=== PATIENT | female | born 1995 | race Caucasian/White ===

== ENCOUNTER 2017-10-04 11:25 | Observation (INO) | payer OTHER ==
[2017-10-04 11:52] VITALS: BP 128/74; PULSE 65
== END 2017-10-04 12:00 | disposition home or self-care (01) ==
LOC: OB 11:25
PROVIDERS: ADMIT Family Medicine; ATTEND Family Medicine
DX: Z34.83 Encounter for supervision of other normal pregnancy, third trimester (principal)
CPT/HCPCS: 36415; 81003; 85025; G0378; 59025

== ENCOUNTER 2017-10-09 21:19 | Observation (INO) | payer OTHER ==
[2017-10-09 22:14] VITALS: BP 133/77; PULSE 78
[2017-10-09 22:50] LABS: BASOPHIL % 0.1 % (0.0-0.4); Basophil (Absolute #) 0.01 (0-0.4); Eosinophil % 1.1 % (0.00-5.0); Eosinophil (Absolute #) 0.12 (0-0.5); Granulocytes % 79.1 % (36.0-66.0); Hematocrit 28.1 % (35-47); Hemoglobin 9.6 gm/dl (12.0-16.0); Lymphocyte (Absolute #) 1.16 (1.0-4.6); Lymphocytes % 10.5 % (24.0-44.0); Mean Cell Volume 90.4 fl (78-100); Mean Corpuscular Hgb Concent. 34.2 g/dl (32-36); Mean Platelet Volume 12.1 fl (6-9.5); Monocyte (Absolute #) 1.01 (0.0-1.3); Monocytes % 9.2 % (0.0-12.0); Platelet Count 95 K/mm3 (150-450); Red Blood Count 3.11 M/mm3 (4.1-5.4); Red Cell Distribution Width 13.5 % (11.5-14.0)
[2017-10-09 23:05] LABS: Appearance CLEAR (CLEAR); Bacteria RARE /HPF (NEGATIVE); Bilirubin NEGATIVE (NEGATIVE); Blood NEGATIVE Ery/ul (0-5); Epithelial Cells FEW /HPF (FEW); Glucose NEGATIVE (NEGATIVE); Ketones NEGATIVE (NEGATIVE); Leukocyte Esterase 1+ (NEGATIVE); Mucus SLIGHT /HPF (NEGATIVE); Nitrite NEGATIVE (NEGATIVE); Protein,Urine Dip TRACE (Negative); Specific Gravity 1.015 (1.005-1.025); Urobilinogen NORMAL mg/dL (0-1)
[2017-10-09 23:07] LABS: Mean Corpuscular Hemoglobin 30.8 pg (26-32)
[2017-10-09 23:08] LABS: INR 0.95 (0.8-3.0)
[2017-10-09 23:11] LABS: PTT 26.5 SECONDS (25.3-37.0)
[2017-10-09 23:12] LABS: Amphetamine,Urine NEGATIVE (NEGATIVE); Barbiturate,Urine NEGATIVE (NEGATIVE); Benzodiazepine,Urine NEGATIVE (NEGATIVE); Cocaine,Urine NEGATIVE (NEGATIVE); Methadone,Urine NEGATIVE (NEGATIVE); Opiate,Urine NEGATIVE (NEGATIVE); PCP,Urine NEGATIVE (NEGATIVE); THC,Urine POSITIVE (NEGATIVE)
[2017-10-09 23:18] LABS: ALBUMIN 3.4 g/dL (3.5-5.0); ALKALINE PHOSPHATASE 168 U/L (38-126); ANION GAP 11.4 MEQ/L (5-15); BLOOD UREA NITROGEN 9 mg/dL (7-17); CHLORIDE 108 mmol/L (98-107); Calcium 8.5 mg/dL (8.4-10.2); Carbon Dioxide 22 mmol/L (22-30); Creatinine 1 0.63 mg/dL (0.52-1.04); Glucose 79 mg/dL (74-106); Potassium 3.6 mmol/L (3.5-5.1); SGOT/AST 15 U/L (14-36); SGPT/ALT 12 U/L (0-35); SODIUM 138 mmol/L (137-145); Total Protein 6.7 g/dL (6.3-8.2)
[2017-10-09 23:59] LABS: Slide Review 1 YES
== END 2017-10-10 00:10 | disposition home or self-care (01) ==
LOC: OB 21:19 → UNDOADMOB 21:19 → UNDODISOB 10-10 00:10
PROVIDERS: ADMIT Family Medicine; ATTEND Family Medicine
DX: Z34.82 Encounter for supervision of other normal pregnancy, second trimester (principal)
CPT/HCPCS: 36415; 80053; 80307; 81000; 84550; 85025; 85610; 85730; G0378

== ENCOUNTER 2017-10-22 06:54 | Inpatient (IN) | payer OTHER ==
[2017-10-22] MEDS ORDERED: Ephedrine Sulfate 50 MG/ML IV PRN (08:56)
[2017-10-22] MEDS ORDERED: OB EPIDURAL NAROPIN/SUFENTANIL IN NACL EPIDURAL PRN (08:56)
[2017-10-22] MEDS ORDERED: Lactated Ringers 1,000 ML IV ONE (08:56)
[2017-10-22] MEDS ORDERED: Phenergan 25 MG INJ IV PRN (08:56)
[2017-10-22] MEDS ORDERED: Zofran 4 MG/2 ML VIAL IV PRN (08:56)
[2017-10-22] MEDS ORDERED: PITOCIN 30 UNITS/ LR 500 ML 500 ML IV SCH (09:00)
[2017-10-22 09:53] LABS: BASOPHIL % 0.2 % (0.0-0.4); Basophil (Absolute #) 0.01 (0-0.4); Eosinophil % 0.8 % (0.00-5.0); Eosinophil (Absolute #) 0.05 (0-0.5); Granulocyte Absolute (ANC) 4.21 (1.4-6.9); Granulocytes % 70.6 % (36.0-66.0); Hemoglobin 10.3 gm/dl (12.0-16.0); Lymphocyte (Absolute #) 1.22 (1.0-4.6); Lymphocytes % 20.4 % (24.0-44.0); Mean Cell Volume 88.5 fl (78-100); Mean Corpuscular Hgb Concent. 34.3 g/dl (32-36); Mean Platelet Volume 11.9 fl (6-9.5); Monocyte (Absolute #) 0.48 (0.0-1.3); Platelet Count 119 K/mm3 (150-450); Red Blood Count 3.39 M/mm3 (4.1-5.4); Red Cell Distribution Width 13.1 % (11.5-14.0)
[2017-10-22 10:03] LABS: Mean Corpuscular Hemoglobin 30.3 pg (26-32)
[2017-10-22] MEDS: CLINDAMYCIN-D5W 900 MG/50 ML*** 900 MG/50 ML BAG IV SCH ×2 (10:23→18:22)
[2017-10-22 11:59] LABS: Amphetamine,Urine NEGATIVE (NEGATIVE); Barbiturate,Urine NEGATIVE (NEGATIVE); Benzodiazepine,Urine NEGATIVE (NEGATIVE); Cocaine,Urine NEGATIVE (NEGATIVE); Methadone,Urine NEGATIVE (NEGATIVE); Opiate,Urine NEGATIVE (NEGATIVE); PCP,Urine NEGATIVE (NEGATIVE); THC,Urine POSITIVE (NEGATIVE)
[2017-10-22] MEDS ORDERED: Lactated Ringers 1,000 ML IV SCH (13:30)
[2017-10-22] MEDS ORDERED: CLINDAMYCIN-D5W 900 MG/50 ML*** 900 MG/50 ML BAG IV SCH (14:00)
[2017-10-22] MEDS: MOTRIN 400 MG PO PRN (20:53)
[2017-10-22] MEDS ORDERED: Dulcolax 10 MG SUPP PR PRN (23:32)
[2017-10-22] MEDS ORDERED: NORCO 5/325 MG PO PRN (23:32)
[2017-10-22] MEDS ORDERED: Anucort-HC SUPPOSITORY PR PRN (23:32)
[2017-10-22] MEDS ORDERED: Dermoplast Spray TP PRN (23:32)
[2017-10-22] MEDS ORDERED: LANSINOH 40 GM TOP PRN (23:32)
[2017-10-22] MEDS ORDERED: Ambien 10 MG PO PRN (23:32)
[2017-10-22] MEDS ORDERED: TUCKS TP PRN (23:32)
[2017-10-22] MEDS ORDERED: CORTISONE 1% CREAM TP PRN (23:32)
[2017-10-22] MEDS ORDERED: Mylicon 80MG PO PRN (23:32)
[2017-10-23] MEDS ORDERED: TYLENOL EXTRA STRENGTH 500 MG ONE (01:16)
[2017-10-23] MEDS: TYLENOL EXTRA STRENGTH 500 MG PO PRN ×3 (01:18→18:37)
[2017-10-23 05:39] LABS: BASOPHIL % 0.2 % (0.0-0.4); Basophil (Absolute #) 0.02 (0-0.4); Eosinophil % 1.1 % (0.00-5.0); Eosinophil (Absolute #) 0.09 (0-0.5); Granulocyte Absolute (ANC) 5.78 (1.4-6.9); Hematocrit 25.5 % (35-47); Hemoglobin 8.7 gm/dl (12.0-16.0); Lymphocyte (Absolute #) 1.58 (1.0-4.6); Lymphocytes % 19.4 % (24.0-44.0); Mean Cell Volume 89.5 fl (78-100); Mean Corpuscular Hemoglobin 30.5 pg (26-32); Mean Corpuscular Hgb Concent. 34.1 g/dl (32-36); Mean Platelet Volume 11.3 fl (6-9.5); Monocyte (Absolute #) 0.68 (0.0-1.3); Monocytes % 8.3 % (0.0-12.0); Platelet Count 131 K/mm3 (150-450); Red Blood Count 2.85 M/mm3 (4.1-5.4); Red Cell Distribution Width 13.1 % (11.5-14.0); White Blood Count 8.2 K/mm3 (4.0-10.5)
[2017-10-23] MEDS ORDERED: Adacel Vial IM ONE (08:00)
[2017-10-23 08:47] VITALS: O2SAT 98
[2017-10-23 09:11] LABS: ALBUMIN 2.8 g/dL (3.5-5.0); ALKALINE PHOSPHATASE 139 U/L (38-126); ANION GAP 11.1 MEQ/L (5-15); BLOOD UREA NITROGEN 4 mg/dL (7-17); CHLORIDE 107 mmol/L (98-107); Calcium 8.3 mg/dL (8.4-10.2); Carbon Dioxide 24 mmol/L (22-30); Creatinine 1 0.67 mg/dL (0.52-1.04); Glucose 75 mg/dL (74-106); Potassium 3.5 mmol/L (3.5-5.1); SGOT/AST 21 U/L (14-36); SGPT/ALT 15 U/L (0-35); SODIUM 139 mmol/L (137-145); Total Protein 5.8 g/dL (6.3-8.2); Uric Acid 5.6 mg/dL (2.6-6.0)
[2017-10-23] MEDS: MOTRIN 400 MG PO PRN ×3 (09:28→22:30)
[2017-10-23] MEDS: Colace 100 MG PO SCH ×2 (12:41→22:33)
[2017-10-23] MEDS: FERREX 150 PO SCH (12:41)
[2017-10-24] MEDS: MOTRIN 400 MG PO PRN ×2 (04:47→11:07)
--- NOTE | 2017-10-24 09:05 | PCM.DS ---
Discharge Summary Date of Admission: 10/22/17 16:13 Admitting Physician: JER GRAY Consults: Consults on Case 10/22/17 23:33 Notify Physician ROUTINE Primary Care Provider: JER GRAY Allergies Allergies orange Allergy (Verified 10/22/17 07:28) Penicillins Allergy (Verified 10/04/17 11:48) Hospital Summary - Hospital Course Hospital Course: Pt was admitted in active labor at 38+ weeks. She delivered vaginally (for full details, see delivery note). She has done well ; she was reported to have one isolated elevated BP to 163/80 yesterday morning - it was an automatic bp that was not verified with a manual BP. She has been asymptomatic (denies MITCHELL or visual changes). Having some cramping. Bleeding decreased. Will send her home on ibuprofen prn and iron once daily. She will need to check her BP twice daily and report high pressures (see pt instructions) . She will need labs in 2 days. Follow up with me in 1 week. - Vitals & Intake/Output Vital Signs: Vital Signs Temperature 98.3 F 10/24/17 02:00 Pulse Rate 48 L 10/24/17 02:00 Respiratory Rate 18 10/24/17 02:00 Blood Pressure 142/84 10/24/17 02:00 O2 Sat by Pulse Oximetry 98 10/24/17 00:00 Intake & Output: Intake & Output 10/21/17 10/22/17 10/23/17 10/24/17 11:59 11:59 11:59 11:59 Intake Total 2000 Output Total 1200 Balance 800 Weight 153 kg - Lab Result Diagrams: 10/23/17 05:18 10/23/17 05:00 Lab Results-Last 24 Hrs: Lab Results-Last 24 Hours 10/23/17 Range/Units 05:00 Sodium 139 (137-145) mmol/L Potassium 3.5 (3.5-5.1) mmol/L Chloride 107 (98-107) mmol/L Carbon Dioxide 24 (22-30) mmol/L Anion Gap 11.1 (5-15) MEQ/L BUN 4 L (7-17) mg/dL Creatinine 0.67 (0.52-1.04) mg/dL Estimated GFR > 60.0 ML/MIN Glucose 75 (74-106) mg/dL Uric Acid 5.6 (2.6-6.0) mg/dL Calcium 8.3 L (8.4-10.2) mg/dL Total Bilirubin 0.20 (0.2-1.3) mg/dL AST 21 (14-36) U/L ALT 15 (0-35) U/L Alkaline Phosphatase 139 H (38-126) U/L Serum Total Protein 5.8 L (6.3-8.2) g/dL Albumin 2.8 L (3.5-5.0) g/dL - Procedures and Test Procedures and Tests throughout Hospitalization: Therapy Orders & Screens 10/22/17 20:01 Standby STAT Comment: Diagnosis: ob check Discharge Exam General Appearance: no apparent distress, alert Neurologic Exam: oriented x 3, cooperative, other (pat refl 2+ bilat. no clonus. ) Skin Exam: normal color, warm, dry, No rash Respiratory Exam: normal breath sounds, lungs clear, No crackles/rales, No rhonchi, No wheezing Cardiovascular Exam: regular rate/rhythm, normal heart sounds Gastrointestinal/Abdomen Exam: soft, other (fundus firm under umbilicus) Extremity Exam: No pedal edema, No swelling Final Diagnosis/Problem List - Final Discharge Diagnosis/Problem (1) Vaginal delivery Current Visit: Yes Status: Acute Assessment & Plan: Doing great. Home today. (2) induced hypertension Current Visit: Yes Status: Acute Assessment & Plan: She had one isolated elevated BP. Check BP after discharge. RTC 1 wk. Get labs in 2d. (3) Thrombocytopenia Current Visit: Yes Status: Acute Assessment & Plan: Had improved. Recheck in 2d. - Discharge Disposition: Home, Self-Care Condition: Good Prescriptions: New Ferrous Gluconate 324 mg PO DAILY #30 tablet Ibuprofen 800 mg PO TID PRN #35 tablet PRN Reason: Pain Continue Hydroxyzine HCl 25 mg [Atarax 25 mg] 25 mg PO TIDPRN PRN PRN Reason: Anxiety Vits W-Ca,Fe,FA(<1Mg) [] 1 each PO DAILY Additional Instructions: Check your blood pressure twice daily. If the top number is over 160 or the bottom number is over 110, call the doctor IVETT. Also, call the doctor IVETT for severe headache, sudden swelling, or changes in vision. Get blood drawn in 2 d (Sunday). Come see Dr. Gray in 1 week. Follow up with: JER GRAY [Primary Care Provider] - 1 Week
[2017-10-24] MEDS ORDERED: THERAGRAN MULTIVITAMIN PO SCH (10:00)
[2017-10-24] MEDS: Colace 100 MG PO SCH (11:08)
[2017-10-24] MEDS: FERREX 150 PO SCH (11:08)
[2017-10-24 12:34] VITALS: BP 132/82; PULSE 52
== END 2017-10-24 12:20 | disposition home or self-care (01) | DRG 775 ==
LOC: OB 06:54 → UNDOADMOB 06:54 → INTOOBSV 16:13 → OBSVTOIN 16:13 → OB 16:13 → MED SURG 10-23 20:15 → OB 10-23 20:15
PROVIDERS: ADMIT Family Medicine; ATTEND Family Medicine
PROC: 10E0XZZ Delivery of Products of Conception, External Approach (ICD-10-PCS; principal; 2017-10-22)
DX: O80 Encounter for full-term uncomplicated delivery (principal); Z3A.38 38 weeks gestation of pregnancy; Z37.0 Single live birth; D64.9 Anemia, unspecified; D69.6 Thrombocytopenia, unspecified; N89.8 Other specified noninflammatory disorders of vagina
CPT/HCPCS: 36415; 80053; 80307; 84550; 85025; 90715; 94799; G0378; J2590; J2795; A9270-GY

== ENCOUNTER 2020-06-02 18:57 | Emergency (ER) | payer OTHER ==
[2020-06-02] MEDS ORDERED: Sodium Chloride 0.9% 1000 ML 1,000 ML IV STA (19:34)
[2020-06-02] MEDS ORDERED: TYLENOL 325 MG PO ONE (19:34)
[2020-06-02] MEDS ORDERED: Sodium Chloride 0.9% 1000 ML 1,000 ML ONE (19:56)
[2020-06-02] MEDS ORDERED: TYLENOL 325 MG ONE (19:56)
[2020-06-02 20:03] LABS: Absolute Neutrophil Ct (ANC) 5.22 (1.4-6.9); BASOPHIL % 0.3 % (0.0-0.4); Basophil (Absolute #) 0.02 (0-0.4); Eosinophil % 2.3 % (0.00-5.0); Eosinophil (Absolute #) 0.18 (0-0.5); Hematocrit 36.2 % (35-47); Hemoglobin 12.9 gm/dl (12.0-16.0); Lymphocyte (Absolute #) 1.89 (1.0-4.6); Lymphocytes % 23.7 % (24.0-44.0); Mean Cell Volume 88.1 fl (78-100); Mean Corpuscular Hemoglobin 31.4 pg (26-32); Mean Corpuscular Hgb Concent. 35.6 g/dl (32-36); Mean Platelet Volume 11.6 fl (7.5-11.0); Monocyte (Absolute #) 0.65 (0.0-1.3); Monocytes % 8.2 % (0.0-12.0); Neutrophil % 65.5 % (36.0-66.0); Platelet Count 155 K/mm3 (150-450); Red Blood Count 4.11 M/mm3 (4.1-5.4); Red Cell Distribution Width 11.7 % (11.5-14.0)
[2020-06-02 20:08] LABS: Appearance CLOUDY (CLEAR); Bilirubin NEGATIVE (NEGATIVE); Blood NEGATIVE Ery/ul (0-5); Epithelial Cells RARE /HPF (FEW); Glucose NEGATIVE (NEGATIVE); Ketones TRACE (NEGATIVE); Leukocyte Esterase LARGE (NEGATIVE); Mucus SLIGHT /HPF (NEGATIVE); Nitrite NEGATIVE (NEGATIVE); Protein,Urine Dip 30 (Negative); Urobilinogen 2 mg/dL (0-1)
[2020-06-02 20:14] LABS: ALBUMIN 4.6 g/dL (3.5-5.0); ALKALINE PHOSPHATASE 68 U/L (38-126); ANION GAP 13.2 MEQ/L (5-15); BLOOD UREA NITROGEN 10 mg/dL (7-17); CHLORIDE 102 mmol/L (98-107); Calcium 9.6 mg/dL (8.4-10.2); Carbon Dioxide 23 mmol/L (22-30); Creatinine 1 0.55 mg/dL (0.52-1.04); EST GLOMERULAR FILTRATION RATE > 60.0 ML/MIN; Glucose 92 mg/dL (74-106); Potassium 3.7 mmol/L (3.5-5.1); SGOT/AST 23 U/L (14-36); SGPT/ALT 18 U/L (0-35); SODIUM 134 mmol/L (137-145); Total Protein 7.8 g/dL (6.3-8.2)
[2020-06-02 21:00] LABS: ABO TYPING O; Antibody Screen NEGATIVE (NEGATIVE); RH TYPING POSITIVE
[2020-06-02 21:42] VITALS: O2SAT 99
--- NOTE | 2020-06-02 21:58 | ERPHSYRPT ---
- History of Present Illness Time Seen by Provider: 06/02/20 19:00 Source: patient Exam Limitations: no limitations Patient Subjective Stated Complaint: "I started having cramps earlier today." Triage Nursing Assessment: Patient reported onset of left lower abdomen/pelvis pain today while at home. Denied any heavy lifting/trauma. Pain described as intermittent cramping. Denied vaginal bleeding/discharge. Denied dysuria/hematuria. Denied nausea/vomiting/diarrhea. Pupils 3mm brisk reaction bilateral. Symmetrical chest expansion. heart tones S1/S2 regular rate and rhythm. Lungs vesicular with adequate airflow. Abdomen soft non-distended with normoactive bowel sounds. tenderness noted over the left lower pelvis. CVA tenderness to the left side. Peripheral pulse +2 bilateral. No noted dependent edema. Physician History: 24 years old 3 para 1 at almost 10 weeks gestation presented in the ER with sudden onset left lower quadrant/left pelvic cramping moderate intensity almost an hour prior to arrival, continuous and started to improve on presentation in the ER. Patient denies any associated vaginal bleeding or discharge. No urinary symptoms. Patient does have history of left ovarian cyst on recent ultrasound. Denies any trauma or fall. Timing/Duration: today, sudden, improved Activites at Onset: rest Quality: cramping Onset Location: LLQ, pelvic pain Pain Radiation: none Severity of Pain-Max: moderate Severity of Pain-Current: mild Prior abdominal problems: none Modifying Factors: Improves With: nothing Associated Symptoms: denies symptoms Allergies/Adverse Reactions: escitalopram [From Lexapro] Allergy (Verified 06/02/20 19:12) orange Allergy (Verified 10/22/17 07:28) Penicillins Allergy (Verified 10/04/17 11:48) Home Medications: Vits W-Ca,Fe,FA(<1Mg) [] 1 each PO DAILY 10/22/17 [History] Buprenorphine HCl/Naloxone HCl [Suboxone 2 mg-0.5 mg Tablet Sl] 0.5 tab PO DAILY 06/02/20 [History] Carvedilol 3.125 mg [Coreg 3.125 MG] 0.5 tab PO DAILY 06/02/20 [History] Metoclopramide HCl 1 tab PO Q6H PRN PRN 06/02/20 [History] Hx Tetanus, Diphtheria Vaccination/Date Given: Yes Hx Influenza Vaccination/Date Given: Yes Travel Risk - International Travel Have you traveled outside of the country in past 3 weeks: No - Coronavirus Screening Are you exhibiting any of the following symptoms?: No Close contact with a COVID-19 positive Pt in past 14-21 Days: No - Vaccine Status Have you recieved a Covid-19 vaccination: No - Review of Systems Constitutional: No Symptoms Eyes: No Symptoms Ears, Nose, & Throat: No Symptoms Respiratory: No Symptoms Cardiac: No Symptoms Abdominal/Gastrointestinal: Abdominal Pain Genitourinary Symptoms: Musculoskeletal: No Symptoms Skin: No Symptoms Neurological: No Symptoms Psychological: No Symptoms Endocrine: No Symptoms Hematologic/Lymphatic: No Symptoms Immunological/Allergic: No Symptoms - Past Medical History Pertinent Past Medical History: No Cardiac History: Hypertension Psycho-Social History: Anxiety - Past Surgical History Past Surgical History: No Neuro Surgical History: No Pertinent History Cardiac: No Pertinent History Gastrointestinal: No Pertinent History Musculoskeletal: No Pertinent History Female Surgical History: No Pertinent History - Social History Smoking Status: Former smoker Exposure to second hand smoke: No Drug Use: none Patient Lives Alone: No - Female History Hx Now: Yes - Nursing Vital Signs Nursing Vital Signs: Initial Vital Signs Respiratory Rate 16 06/02/20 18:58 Blood Pressure 150/81 06/02/20 18:58 O2 Sat by Pulse Oximetry 98 06/02/20 18:58 Pain Scale Pain Intensity 4 - Physical Exam General Appearance: no apparent distress, alert Eye Exam: PERRL/EOMI, eyes nml inspection Ears, Nose, Throat Exam: normal ENT inspection, TMs normal, pharynx normal Neck Exam: normal inspection, non-tender, supple, full range of motion Respiratory Exam: normal breath sounds, lungs clear Cardiovascular Exam: regular rate/rhythm, normal heart sounds Gastrointestinal/Abdomen Exam: soft, normal bowel sounds, tenderness (Minimal tenderness left pelvic) Pelvic Exam: not done Back Exam: normal inspection, normal range of motion Extremity Exam: normal inspection, normal range of motion Neurologic Exam: alert, oriented x 3, cooperative Skin Exam: normal color SpO2 Interpretation: normal SpO2: 99 O2 Delivery: Room Air Ordered Tests: Active Orders 24 hr Category Date Time Status IV Insertion STAT Care 06/02/20 19:34 Completed OB TRANSVAGINAL [US] Stat Exams 06/02/20 19:35 Taken CBC W DIFF Stat Lab 06/02/20 19:50 Completed CMP Stat Lab 06/02/20 19:50 Completed CULTURE,URINE Stat Lab 06/02/20 19:36 Received UA W/RFX UR CULTURE Stat Lab 06/02/20 19:36 Completed Medication Summary Discontinued Medications Generic Name Dose Route Start Last Admin Trade Name Julio PRN Reason Stop Dose Admin Acetaminophen 650 mg 06/02/20 19:34 06/02/20 19:59 Tylenol 325 Mg PO 06/02/20 19:35 650 mg STAT ONE Administration Acetaminophen Confirm 06/02/20 19:56 Tylenol 325 Mg Administered 06/02/20 19:57 Dose 650 mg .ROUTE .STK-MED ONE Sodium Chloride 1,000 mls @ 999 mls/hr 06/02/20 19:34 06/02/20 22:21 Sodium Chloride 0.9% 1000 Ml IV 06/02/20 20:34 Infused .Q1H1M STA Infusion Sodium Chloride Confirm 06/02/20 19:56 Sodium Chloride 0.9% 1000 Ml Administered 06/02/20 19:57 Dose 1,000 mls @ ud .ROUTE .STK-MED ONE Nitrofurantoin Macrocrystals 100 mg 06/02/20 21:59 06/02/20 22:25 Macrobid 100mg Capsule PO 06/02/20 22:00 100 mg STAT ONE Administration Nitrofurantoin Macrocrystals Confirm 06/02/20 22:23 Macrobid 100mg Capsule Administered 06/02/20 22:24 Dose 100 mg .ROUTE .STK-MED ONE Lab/Rad Data: Laboratory Result Diagrams 06/02/20 19:50 06/02/20 19:50 Laboratory Results 06/02/20 06/02/20 06/02/20 Range/Units 19:50 19:50 19:50 WBC 8.0 (4.0-10.5) K/mm3 RBC 4.11 (4.1-5.4) M/mm3 Hgb 12.9 (12.0-16.0) gm/dl Hct 36.2 (35-47) % MCV 88.1 (78-100) fl MCH 31.4 (26-32) pg MCHC 35.6 (32-36) g/dl RDW 11.7 (11.5-14.0) % Plt Count 155 (150-450) K/mm3 MPV 11.6 H (7.5-11.0) fl Gran % 65.5 (36.0-66.0) % Eos # (Auto) 0.18 (0-0.5) Absolute Lymphs (auto) 1.89 (1.0-4.6) Absolute Monos (auto) 0.65 (0.0-1.3) Lymphocytes % 23.7 L (24.0-44.0) % Monocytes % 8.2 (0.0-12.0) % Eosinophils % 2.3 (0.00-5.0) % Basophils % 0.3 (0.0-0.4) % Absolute Granulocytes 5.22 (1.4-6.9) Basophils # 0.02 (0-0.4) Sodium 134 L (137-145) mmol/L Potassium 3.7 (3.5-5.1) mmol/L Chloride 102 (98-107) mmol/L Carbon Dioxide 23 (22-30) mmol/L Anion Gap 13.2 (5-15) MEQ/L BUN 10 (7-17) mg/dL Creatinine 0.55 (0.52-1.04) mg/dL Estimated GFR > 60.0 ML/MIN Glucose 92 (74-106) mg/dL Calcium 9.6 (8.4-10.2) mg/dL Total Bilirubin 0.30 (0.2-1.3) mg/dL AST 23 (14-36) U/L ALT 18 (0-35) U/L Alkaline Phosphatase 68 (38-126) U/L Serum Total Protein 7.8 (6.3-8.2) g/dL Albumin 4.6 (3.5-5.0) g/dL Urine Color (YELLOW) Urine Appearance (CLEAR) Urine pH (5-6) Ur Specific [place] (1.005-1.025) Urine Protein (Negative) Urine Ketones (NEGATIVE) Urine Blood (0-5) Diego/ul Urine Nitrite (NEGATIVE) Urine Bilirubin (NEGATIVE) Urine Urobilinogen (0-1) mg/dL Ur Leukocyte Esterase (NEGATIVE) Urine WBC (Auto) (0-5) /HPF Urine RBC (Auto) (0-2) /HPF U Epithel Cells (Auto) (FEW) /HPF Urine Bacteria (Auto) (NEGATIVE) /HPF Urine Mucus (Auto) (NEGATIVE) /HPF Urine Culture Reflexed (NO) Urine Glucose (NEGATIVE) mg/dL ABO Group O Rh Factor POSITIVE Antibody Screen NEGATIVE (NEGATIVE) 06/02/20 Range/Units 19:36 WBC (4.0-10.5) K/mm3 RBC (4.1-5.4) M/mm3 Hgb (12.0-16.0) gm/dl Hct (35-47) % MCV (78-100) fl MCH (26-32) pg MCHC (32-36) g/dl RDW (11.5-14.0) % Plt Count (150-450) K/mm3 MPV (7.5-11.0) fl Gran % (36.0-66.0) % Eos # (Auto) (0-0.5) Absolute Lymphs (auto) (1.0-4.6) Absolute Monos (auto) (0.0-1.3) Lymphocytes % (24.0-44.0) % Monocytes % (0.0-12.0) % Eosinophils % (0.00-5.0) % Basophils % (0.0-0.4) % Absolute Granulocytes (1.4-6.9) Basophils # (0-0.4) Sodium (137-145) mmol/L Potassium (3.5-5.1) mmol/L Chloride (98-107) mmol/L Carbon Dioxide (22-30) mmol/L Anion Gap (5-15) MEQ/L BUN (7-17) mg/dL Creatinine (0.52-1.04) mg/dL Estimated GFR ML/MIN Glucose (74-106) mg/dL Calcium (8.4-10.2) mg/dL Total Bilirubin (0.2-1.3) mg/dL AST (14-36) U/L ALT (0-35) U/L Alkaline Phosphatase (38-126) U/L Serum Total Protein (6.3-8.2) g/dL Albumin (3.5-5.0) g/dL Urine Color YELLOW (YELLOW) Urine Appearance CLOUDY (CLEAR) Urine pH 5.0 (5-6) Ur Specific [place] 1.030 (1.005-1.025) Urine Protein 30 (Negative) Urine Ketones TRACE (NEGATIVE) Urine Blood NEGATIVE (0-5) Diego/ul Urine Nitrite NEGATIVE (NEGATIVE) Urine Bilirubin NEGATIVE (NEGATIVE) Urine Urobilinogen 2 (0-1) mg/dL Ur Leukocyte Esterase LARGE (NEGATIVE) Urine WBC (Auto) 6-10 (0-5) /HPF Urine RBC (Auto) NONE (0-2) /HPF U Epithel Cells (Auto) RARE (FEW) /HPF Urine Bacteria (Auto) NONE (NEGATIVE) /HPF Urine Mucus (Auto) SLIGHT (NEGATIVE) /HPF Urine Culture Reflexed YES (NO) Urine Glucose NEGATIVE (NEGATIVE) mg/dL ABO Group Rh Factor Antibody Screen (NEGATIVE) - Progress Progress: improved Air Movement: good Progress Note: 06/02/20 21:57 She is given fluid bolus and Tylenol, on reevaluation feeling better. Baseline labs are grossly unremarkable. Does have UTI, will give her Macrobid. I have obtained ultrasound with preliminary report which showed no more cyst which probably ruptured already. No ovarian torsion. Good heart tones in 150s and no acute OB issue. Recommended outpatient follow-up with primary OB. Recommended pelvic rest. Discussed signs symptoms of worsening needing return to ER which she seems understanding. Blood Culture(s) Obtained: No Antibiotics given: No Counseled pt/family regarding: lab results, diagnosis, need for follow-up, rad results - Departure Departure Disposition: Home Clinical Impression: Pelvic pain affecting Qualifiers: Trimester: first trimester Qualified Code(s): O26.891 - Other specified related conditions, first trimester UTI in Qualifiers: Trimester: first trimester Qualified Code(s): O23.41 - Unspecified infection of urinary tract in , first trimester Condition: Stable Critical Care Time: No Referrals: JER HUGHES [Primary Care Provider] - (1-2 days for reevaluation.) Instructions: Stomach Pain in Early , Urinary Tract Infections in Additional Instructions: Drink plenty of fluids. Take Tylenol as needed for pain. Follow-up with your primary OB for reevaluation in 1 to 2 days. Pelvic rest. Return to ER for worsening pain, vaginal bleeding discharge etc. Prescriptions: Nitrofurantoin Monohyd/M-Cryst [Macrobid 100 mg Capsule] 100 mg PO BID #14 caps ule
[2020-06-02] MEDS ORDERED: Macrobid 100MG Capsule PO ONE (21:59)
[2020-06-02 22:22] VITALS: BP 118/72; PULSE 74
[2020-06-02] MEDS ORDERED: Macrobid 100MG Capsule ONE (22:23)
--- NOTE | 2020-06-03 08:52 | XRAY ---
Indication: First trimester pain. Two-dimensional transvaginal early OB ultrasound performed. Comparison: May 18, 2020. Again there is a single intrauterine with mean crown-rump length 2.74 cm corresponding to 9 weeks 4 days. heart rate 157 bpm. No abnormal subchorionic fluid. Left ovary again demonstrates a 2.6 cm echogenic cystic mass. Right ovary not seen. No free fluid. Impression: Again single viable intrauterine measuring 9 weeks 4 days. Normal progression of . Grossly stable left ovary echogenic cystic mass possibly complex viscus hemorrhagic corpus luteal cyst. Comment: Preliminary report was given.
== END 2020-06-02 22:31 | disposition home or self-care (01) ==
LOC: ED 18:57
DX: O26.891 Other specified pregnancy related conditions, first trimester (principal); O23.41 Unspecified infection of urinary tract in pregnancy, first trimester; Z3A.10 10 weeks gestation of pregnancy
CPT/HCPCS: 36000; 36415; 76817; 80053; 81001; 85025; 86850; 86900; 86901; 87086; 96360; 99284; A9270-GY

== ENCOUNTER 2020-10-27 12:08 | Observation (INO) | payer OTHER ==
[2020-10-27] MEDS ORDERED: Rocephin 1000 MG INJ IM ONE (13:53)
[2020-10-27 13:54] VITALS: O2SAT 98
[2020-10-27] MEDS ORDERED: XYLOCAINE 1% HCL 20 ML MDV IJ ONE (13:56)
[2020-10-27 14:58] VITALS: BP 119/74; PULSE 62
--- NOTE | 2020-10-27 15:16 | XRAY ---
Indication: Evaluate cervical length. Limited transvaginal pelvic sonogram demonstrates closed cervix with cervical length measuring 3.2-3.4 cm.
== END 2020-10-27 14:35 | disposition home or self-care (01) ==
LOC: UNDOADMOB 12:08 → OB 12:08 → UNDODISOB 14:35
PROVIDERS: ADMIT Family Medicine; ATTEND Family Medicine
DX: Z34.83 Encounter for supervision of other normal pregnancy, third trimester (principal); Z3A.30 30 weeks gestation of pregnancy
CPT/HCPCS: 59025; 76815; 96372; G0378; J0696

== ENCOUNTER 2020-11-05 22:12 | Observation (INO) | payer OTHER ==
[2020-11-05 23:09] LABS: Amphetamine,Urine NEGATIVE (NEGATIVE); Barbiturate,Urine NEGATIVE (NEGATIVE); Benzodiazepine,Urine NEGATIVE (NEGATIVE); Cocaine,Urine NEGATIVE (NEGATIVE); Methadone,Urine NEGATIVE (NEGATIVE); Opiate,Urine NEGATIVE (NEGATIVE); PCP,Urine NEGATIVE (NEGATIVE); THC,Urine POSITIVE (NEGATIVE)
[2020-11-05 23:15] VITALS: O2SAT 98
[2020-11-05 23:17] LABS: Appearance SLIGHTLY CLOUDY (CLEAR); Bilirubin NEGATIVE (NEGATIVE); Blood NEGATIVE Ery/ul (0-5); Epithelial Cells RARE /HPF (FEW); Glucose NEGATIVE (NEGATIVE); Ketones NEGATIVE (NEGATIVE); Leukocyte Esterase TRACE (NEGATIVE); Mucus SLIGHT /HPF (NEGATIVE); Nitrite NEGATIVE (NEGATIVE); Protein,Urine Dip NEGATIVE (Negative); Specific Gravity 1.024 (1.005-1.025); Urobilinogen 4 mg/dL (0-1); WBC 0-2 /HPF (0-5)
[2020-11-06 01:15] VITALS: BP 126/75; PULSE 75
== END 2020-11-06 00:20 | disposition home or self-care (01) ==
LOC: OB 22:12
PROVIDERS: ADMIT Family Medicine; ATTEND Family Medicine
DX: Z34.83 Encounter for supervision of other normal pregnancy, third trimester (principal); Z3A.31 31 weeks gestation of pregnancy
CPT/HCPCS: 80307; 81001; G0378

== ENCOUNTER 2020-12-09 01:09 | Observation (INO) | payer OTHER ==
[2020-12-09 02:02] LABS: Amphetamine,Urine NEGATIVE (NEGATIVE); Barbiturate,Urine NEGATIVE (NEGATIVE); Benzodiazepine,Urine NEGATIVE (NEGATIVE); Cocaine,Urine NEGATIVE (NEGATIVE); Methadone,Urine NEGATIVE (NEGATIVE); Opiate,Urine NEGATIVE (NEGATIVE); PCP,Urine NEGATIVE (NEGATIVE); THC,Urine NEGATIVE (NEGATIVE)
[2020-12-09 03:08] LABS: Appearance CLEAR (CLEAR); Bilirubin NEGATIVE (NEGATIVE); Blood NEGATIVE Ery/ul (0-5); Glucose NEGATIVE (NEGATIVE); Ketones NEGATIVE (NEGATIVE); Leukocyte Esterase NEGATIVE (NEGATIVE); Nitrite NEGATIVE (NEGATIVE); Protein,Urine Dip NEGATIVE (Negative); Specific Gravity 1.015 (1.005-1.025); Urobilinogen 4 mg/dL (0-1)
[2020-12-09 04:13] VITALS: BP 124/58; PULSE 64; O2SAT 98
== END 2020-12-09 04:45 | disposition home or self-care (01) ==
LOC: OB 01:09
PROVIDERS: ADMIT Family Medicine; ATTEND Family Medicine
DX: Z34.83 Encounter for supervision of other normal pregnancy, third trimester (principal); Z3A.36 36 weeks gestation of pregnancy
CPT/HCPCS: 80307; 81001; G0378

== ENCOUNTER 2021-03-11 13:58 | Emergency (ER) | payer OTHER ==
--- NOTE | 2021-03-11 14:04 | ERPHSYRPT ---
- History of Present Illness Time Seen by Provider: 03/11/21 14:04 Source: patient Exam Limitations: no limitations Physician History: This is a 25-year-old female slipped and fell onto her buttock yesterday. The pain has persisted. It hurts to move. She is able to ambulate. She did not hit her head. She has no complaints of headache or neck pain. Occurred: yesterday Reason for Fall: slipped Injuries/Pain Location: pelvis (Posteriorly as well as the sacrum and coccyx) Loss of Consciousness: no loss of consciousness Quality: aching Severity of Pain-Max: mild (Moderate) Severity of Pain-Current: mild (Moderate) Modifying Factors: Improves With: movement Associated Symptoms (Fall): denies symptoms Allergies/Adverse Reactions: orange Allergy (Verified 12/09/20 01:43) Rash Penicillins Adverse Reaction (Severe, Verified 12/09/20 01:43) tachycardia escitalopram [From Lexapro] Adverse Reaction (Verified 12/09/20 01:43) does not remember had a rx as a child Home Medications: Buprenorphine HCl/Naloxone HCl [Buprenorphin-Naloxon 8-2 mg Sl] 1 each SL DAILY 03/11/21 [History] Lisinopril 20 mg [Zestril 20 MG] 20 mg PO DAILY 03/11/21 [History] hydroCHLOROthiazide [Hydrochlorothiazide] 12.5 mg PO DAILY 03/11/21 [History] Hx Tetanus, Diphtheria Vaccination/Date Given: Yes Hx Influenza Vaccination/Date Given: Yes Travel Risk - International Travel Have you traveled outside of the country in past 3 weeks: No - Coronavirus Screening Are you exhibiting any of the following symptoms?: No Close contact with a COVID-19 positive Pt in past 14-21 Days: No - Vaccine Status Have you recieved a Covid-19 vaccination: No - Review of Systems Constitutional: No Symptoms Eyes: No Symptoms Ears, Nose, & Throat: No Symptoms Respiratory: No Symptoms Cardiac: No Symptoms Abdominal/Gastrointestinal: No Symptoms Genitourinary Symptoms: No Symptoms Musculoskeletal: Fall, Injury (Posterior pelvis and sacrum and coccyx.) Skin: No Symptoms Neurological: No Symptoms Psychological: No Symptoms Endocrine: No Symptoms Hematologic/Lymphatic: No Symptoms Immunological/Allergic: No Symptoms All Other Systems: Reviewed and Negative - Past Medical History Pertinent Past Medical History: No Cardiac History: Hypertension Psycho-Social History: Anxiety - Past Surgical History Past Surgical History: No Neuro Surgical History: No Pertinent History Cardiac: No Pertinent History Gastrointestinal: No Pertinent History Musculoskeletal: No Pertinent History Female Surgical History: No Pertinent History - Social History Smoking Status: Former smoker Exposure to second hand smoke: Yes Drug Use: none Patient Lives Alone: No - Nursing Vital Signs Nursing Vital Signs: Initial Vital Signs Temperature 98.4 F 03/11/21 14:04 Pulse Rate 82 03/11/21 14:04 Blood Pressure 154/78 03/11/21 14:04 O2 Sat by Pulse Oximetry 99 03/11/21 14:04 Pain Scale Pain Intensity 7 - Valery Coma Score Best Eye Response ([place]): (4) open spontaneously Best Verbal Response ([place]): (5) oriented Best Motor Response ([place]): (6) obeys commands [place] Total: 15 - Physical Exam General Appearance: no apparent distress, alert, anxiety Head Injury: no evidence of injury Eye Exam: PERRL/EOMI, eyes nml inspection ENT Exam: airway nml Neck Exam: supple, trachea midline, full range of motion, normal alignment, normal inspection Respiratory/Chest Exam: No chest tenderness, No respiratory distress Gastrointestinal Exam: No tenderness Rectal Exam: not done Back Exam: normal inspection, normal range of motion, muscle spasm, No CVA tenderness, No vertebral tenderness Extremity Exam: normal inspection, normal range of motion, pelvis stable (Tenderness to the left of midline pelvis posteriorly) Neurologic Exam: alert, oriented x 3, cooperative, microbiology instructor II-XII nml as tested, normal mood/affect, nml cerebellar function, nml station & gait, sensation nml Skin Exam: normal color, warm, dry SpO2 Interpretation: normal O2 Delivery: Room Air - Course Nursing assessment & vital signs reviewed: Yes Ordered Tests: Active Orders 24 hr Category Date Time Status PELVIS (1 OR 2 VIEWS) Stat Exams 03/11/21 14:05 Ordered SACRUM AND COCCYX Stat Exams 03/11/21 Ordered HCG,QUALITATIVE URINE Stat Lab 03/11/21 14:30 Completed Lab/Rad Data: Laboratory Results 03/11/21 Range/Units 14:30 Urine HCG, Qual POSITIVE (Negative) - Progress Progress: unchanged Progress Note: 03/11/21 15:14 This patient's test came back positive. This surprised her. She has been walking since the fall. She is declining the x-rays at this time. I think this is reasonable. She was told to return to the emergency department if her symptoms worsen. I did explain to her that there is risk to the fetus with radiation from an x-ray and this risk is low. She has opted not to do the x- rays at this time. Counseled pt/family regarding: diagnosis, need for follow-up - Departure Departure Disposition: Home Clinical Impression: Fall with no injury, Condition: Stable Critical Care Time: No Referrals: JOCELYNE HARMON MD [Primary Care Provider] - Follow up/PCP as directed Additional Instructions: Ice pack to tender areas 3 times a day for approximately 5 to 10 minutes at a time over the next 48 hours. Return to the emergency department if your symptoms worsen. May use Tylenol 650 mg orally 4 times a day for pain control. If your pain persists beyond the next 2 to 3 days, follow-up with your primary care physician for further management Forms: Work/School Release Form
[2021-03-11 14:11] VITALS: BP 154/78; PULSE 82; O2SAT 99
== END 2021-03-11 15:24 | disposition home or self-care (01) ==
LOC: ED 13:58
DX: R10.2 Pelvic and perineal pain (principal); M53.3 Sacrococcygeal disorders, not elsewhere classified; W01.0XXA Fall on same level from slipping, tripping and stumbling without subsequent striking against object, initial encounter; Z33.1 Pregnant state, incidental; I10 Essential (primary) hypertension
CPT/HCPCS: 84703; 99283

== ENCOUNTER 2021-07-23 20:37 | Emergency (ER) | payer OTHER ==
[2021-07-23] MEDS ORDERED: Hydromorphone 1 mg/ml Injection IV ONE (20:52)
[2021-07-23] MEDS ORDERED: Hydromorphone 1 mg/ml Injection ONE (20:55)
[2021-07-23] MEDS ORDERED: Sodium Chloride 0.9% 1000 ML 1,000 ML ONE (20:56)
[2021-07-23] MEDS ORDERED: BENADRYL 50 MG/ML ONE (21:00)
[2021-07-23] MEDS ORDERED: Sodium Chloride 0.9% 1000 ML 1,000 ML IV SCH (21:00)
[2021-07-23] MEDS ORDERED: Reglan 10 MG/2 ML ONE (21:00)
[2021-07-23] MEDS ORDERED: BENADRYL 50 MG/ML IV ONE (21:00)
[2021-07-23] MEDS ORDERED: Reglan 10 MG/2 ML IV ONE (21:01)
[2021-07-23 21:11] LABS: Absolute Neutrophil Ct (ANC) 4.66 x10^3/uL (1.4-6.9); Basophil (Absolute #) 0.02 x10^3/uL (0-0.4); Eosinophil % 2.6 % (0.00-5.0); Eosinophil (Absolute #) 0.19 x10^3/uL (0-0.5); Hemoglobin 11.2 g/dL (12.0-16.0); Lymphocyte (Absolute #) 1.86 x10^3/uL (1.0-4.6); Lymphocytes % 25.5 % (24.0-44.0); Mean Cell Volume 91.2 fL (78-100); Mean Corpuscular Hemoglobin 31.9 pg (26-32); Mean Platelet Volume 11.9 fL (7.5-11.0); Monocyte (Absolute #) 0.56 x10^3/uL (0.0-1.3); Monocytes % 7.7 % (0.0-12.0); Neutrophil % 63.8 % (36.0-66.0); Platelet Count 156 x10^3/uL (150-450); Red Blood Count 3.51 x10^6/uL (4.1-5.4); Red Cell Distribution Width 12.7 % (11.5-14.0); White Blood Count 7.3 x10^3/uL (4.0-10.5)
--- NOTE | 2021-07-23 21:29 | ERPHSYRPT ---
- History of Present Illness Time Seen by Provider: 07/23/21 20:45 Historian: patient Exam Limitations: no limitations Patient Subjective Stated Complaint: To er c/o severe MITCHELL, left side chest pain and dizziness Triage Nursing Assessment: Pt arrives p/w/d resp easy a@ox3. 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 pt reports pain is tight and throbbing wrapping around to mid back left s blaine. PT reports dizziness present with movement. denies n/v or sob states chest pain worse with deep breathing. PT is 24 weeks Physician History: Patient is a 24-week gestation female who presents with a history of migraine headache for 3 days. She developed a headache several days ago she has now developed left-sided chest pain which wraps around to the back is worse with a deep breath. She is also been dizzy with standing. Cardiac risk factors include hypertension or gestational hypertension at least and family history. She denies any nausea vomiting diaphoresis or shortness of breath. Patient is presently on Suboxone on a decreasing dose. Timing/Duration: day(s) (3) Activities at Onset: activity (Headache started at work and has continued) Quality: aching, dullness, throbbing Location: other Chest Pain Radiation: back (Left chest radiates to the back) Severity of Pain-Max: mild Severity of Pain-Current: mild Modifying Factors: Improves With: nothing Associated Symptoms: denies symptoms Prior Chest Pain/Cardiac Workup: no prior chest pain Nitro Today/Relief: no nitro taken today Aspirin Treatment Today: no aspirin today Allergies/Adverse Reactions: orange Allergy (Verified 12/09/20 01:43) Rash Penicillins Adverse Reaction (Severe, Verified 12/09/20 01:43) tachycardia escitalopram [From Lexapro] Adverse Reaction (Verified 12/09/20 01:43) does not remember had a rx as a child nifedipine Adverse Reaction (Verified 07/23/21 20:54) Rapid Heart Beat sertraline [From Zoloft] Adverse Reaction (Verified 07/23/21 20:54) Nausea and Vomiting Home Medications: Aspirin [[place]] 81 mg PO DAILY 07/23/21 [History] Buprenorphine HCl/Naloxone HCl [Suboxone 2 mg-0.5 mg Sl Film] 1 each SL DAILY 07/23/21 [History] Hx Tetanus, Diphtheria Vaccination/Date Given: Yes Hx Influenza Vaccination/Date Given: Yes Travel Risk - International Travel Have you traveled outside of the country in past 3 weeks: No - Coronavirus Screening Are you exhibiting any of the following symptoms?: No Symptoms: Headaches/Body Aches/Fatigue Close contact with a COVID-19 positive Pt in past 14-21 Days: No - Vaccine Status Have you recieved a Covid-19 vaccination: Yes 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 - Vaccination Dates Date of 2cond Vaccination (if applicable): na - Review of Systems Constitutional: No Fever, No Chills Eyes: No Symptoms Ears, Nose, & Throat: No Symptoms Respiratory: No Cough, No Dyspnea Cardiac: No Chest Pain, No Edema, No Syncope Abdominal/Gastrointestinal: No Abdominal Pain, No Nausea, No Vomiting, No Diarrhea Genitourinary Symptoms: No Dysuria Musculoskeletal: No Back Pain, No Neck Pain Skin: No Rash Neurological: No Dizziness, No Focal Weakness, No Sensory Changes Psychological: No Symptoms Endocrine: No Symptoms All Other Systems: Reviewed and Negative - Past Medical History Pertinent Past Medical History: Yes Cardiac History: Hypertension Psycho-Social History: Anxiety Other Medical History: pre-eclampsia with last . HTN - Past Surgical History Past Surgical History: No Neuro Surgical History: No Pertinent History Cardiac: No Pertinent History Gastrointestinal: No Pertinent History Musculoskeletal: No Pertinent History Female Surgical History: No Pertinent History Other Surgical History: abscess to right breast - Social History Smoking Status: Former smoker Exposure to second hand smoke: Yes Drug Use: none Patient Lives Alone: No - Female History Hx Now: Yes Expected Date of Delivery: 11/10/21 - Nursing Vital Signs Nursing Vital Signs: Initial Vital Signs Temperature 97.9 F 07/23/21 20:42 Pulse Rate 62 07/23/21 20:42 Respiratory Rate 18 07/23/21 20:42 Blood Pressure 158/91 07/23/21 20:42 Pain Scale Pain Intensity 3 - Physical Exam General Appearance: mild distress Eye Exam: PERRL/EOMI, eyes nml inspection Ears, Nose, Throat Exam: normal ENT inspection, moist mucous membranes Neck Exam: normal inspection, non-tender, supple, full range of motion Respiratory Exam: normal breath sounds, lungs clear, No respiratory distress Cardiovascular Exam: regular rate/rhythm, normal heart sounds Gastrointestinal/Abdomen Exam: soft, other ( heart tones positive by Doppler), No tenderness, No mass Back Exam: normal inspection, No CVA tenderness, No vertebral tenderness Extremity Exam: normal inspection, normal range of motion Neurologic Exam: alert, oriented x 3, cooperative, normal mood/affect, sensation nml, No motor deficits Skin Exam: normal color, warm, dry SpO2 Interpretation: normal SpO2: 100 O2 Delivery: Room Air - Course Nursing assessment & vital signs reviewed: Yes EKG Interpreted by Me: RATE (69), NORMAL AXIS, NORMAL INTERVALS, NORMAL QRS, NORMAL ST-T Ordered Tests: Active Orders 24 hr Category Date Time Status EKG-ER Only STAT Care 07/23/21 20:50 Active IV Insertion STAT Care 07/23/21 20:50 Active AMYLASE Stat Lab 07/23/21 21:05 Completed CBC W DIFF Stat Lab 07/23/21 21:05 Completed CMP Stat Lab 07/23/21 21:05 Completed LIPASE Stat Lab 07/23/21 21:05 Completed Lactic Acid Stat Lab 07/23/21 21:50 Completed MAGNESIUM Stat Lab 07/23/21 21:05 Completed NT PRO BNP Stat Lab 07/23/21 21:05 Completed TROPONIN Q3H Lab 07/23/21 21:05 Completed TROPONIN Q3H Lab 07/24/21 00:00 Ordered TROPONIN Q3H Lab 07/24/21 03:00 Ordered TROPONIN Q3H Lab 07/24/21 06:00 Ordered TROPONIN Q3H Lab 07/24/21 09:00 Ordered UA W/RFX CULTURE Stat Lab 07/23/21 21:46 Completed Medication Summary Generic Name Dose Route Start Last Admin Trade Name Freq PRN Reason Stop Dose Admin Sodium Chloride 1,000 mls @ 100 mls/hr 07/23/21 21:00 07/23/21 21:02 Sodium Chloride 0.9% 1000 Ml IV 08/22/21 20:59 100 mls/hr .Q10H BRADLEY Administration Discontinued Medications Generic Name Dose Route Start Last Admin Trade Name Freq PRN Reason Stop Dose Admin Diphenhydramine HCl 25 mg 07/23/21 21:00 07/23/21 21:03 Diphenhydramine Hcl 50 Mg/Ml Vial IV 07/23/21 21:01 25 mg STAT ONE Administration Diphenhydramine HCl Confirm 07/23/21 21:00 Diphenhydramine Hcl 50 Mg/Ml Vial Administered 07/23/21 21:01 Dose 50 mg .ROUTE .STK-MED ONE Hydromorphone HCl 1 mg 07/23/21 20:52 07/23/21 21:13 Hydromorphone 1 Mg/1ml Inj 1 Mg/Ml Syringe IV 07/23/21 20:53 Not Given STAT ONE Hydromorphone HCl Confirm 07/23/21 20:55 Hydromorphone 1 Mg/1ml Inj 1 Mg/Ml Syringe Administered 07/23/21 20:56 Dose 1 mg .ROUTE .STK-MED ONE Metoclopramide HCl 10 mg 07/23/21 21:01 07/23/21 21:03 Metoclopramide Hcl 10 Mg/2 Ml Vial IV 07/23/21 21:02 10 mg STAT ONE Administration Metoclopramide HCl Confirm 07/23/21 21:00 Metoclopramide Hcl 10 Mg/2 Ml Vial Administered 07/23/21 21:01 Dose 10 mg .ROUTE .STK-MED ONE Lab/Rad Data: Laboratory Result Diagrams 07/23/21 21:05 07/23/21 21:05 Laboratory Results 07/23/21 07/23/21 07/23/21 Range/Units 21:50 21:46 21:05 WBC (4.0-10.5) x10^3/uL RBC (4.1-5.4) x10^6/uL Hgb (12.0-16.0) g/dL Hct (35-47) % MCV (78-100) fL MCH (26-32) pg MCHC (32-36) g/dL RDW (11.5-14.0) % Plt Count (150-450) x10^3/uL MPV (7.5-11.0) fL Gran % (36.0-66.0) % Immature Gran % (Auto) (0.00-0.4) % Nucleat RBC Rel Count (0.00-0.1) % Eos # (Auto) (0-0.5) x10^3/uL Immature Gran # (Auto) (0.00-0.03) x10^3u/L Absolute Lymphs (auto) (1.0-4.6) x10^3/uL Absolute Monos (auto) (0.0-1.3) x10^3/uL Absolute Nucleated RBC (0.00-0.01) x10^3u/L Lymphocytes % (24.0-44.0) % Monocytes % (0.0-12.0) % Eosinophils % (0.00-5.0) % Basophils % (0.0-0.4) % Absolute Granulocytes (1.4-6.9) x10^3/uL Basophils # (0-0.4) x10^3/uL Sodium (137-145) mmol/L Potassium (3.5-5.1) mmol/L Chloride (98-107) mmol/L Carbon Dioxide (22-30) mmol/L Anion Gap (5-15) MEQ/L BUN (7-17) mg/dL Creatinine (0.52-1.04) mg/dL Estimated GFR ML/MIN Glucose (74-106) mg/dL Lactic Acid 0.8 (0.4-2.0) Calcium (8.4-10.2) mg/dL Magnesium (1.6-2.3) mg/dL Total Bilirubin (0.2-1.3) mg/dL AST (14-36) U/L ALT (0-35) U/L Alkaline Phosphatase (38-126) U/L Troponin I < 0.012 (0.000-0.034) ng/mL NT-Pro-B Natriuret Pep (0-450) pg/mL Serum Total Protein (6.3-8.2) g/dL Albumin (3.5-5.0) g/dL Amylase (30-110) U/L Lipase (23-300) U/L Urinalys Dipstick Clnc MAIN LAB Urine Color YELLOW (YELLOW) Urine Appearance SLIGHTLY CLOUDY (CLEAR) Urine pH 7.0 (5-6) Ur Specific [place] >=1.030 (1.005-1.025) POC Urine Protein Conf NEGATIVE (Negative) Urine Ketones NEGATIVE (NEGATIVE) Urine Nitrite NEGATIVE (NEGATIVE) Urine Bilirubin NEGATIVE (NEGATIVE) Urine Urobilinogen 2 (0-1) mg/dL Urine Leukocytes NEGATIVE (NEGATIVE) Urine WBC (Auto) 3-5 (0-5) /HPF Urine RBC (Auto) 0-2 (0-2) /HPF U Epithel Cells (Auto) RARE (FEW) /HPF Urine Bacteria (Auto) NONE (NEGATIVE) /HPF Urine RBC NEGATIVE (0-5) Diego/ul Urine Mucus (Auto) SLIGHT (NEGATIVE) /HPF Ur Culture Indicated? NO Urine Glucose NEGATIVE (NEGATIVE) mg/dL 07/23/21 07/23/21 Range/Units 21:05 21:05 WBC 7.3 (4.0-10.5) x10^3/uL RBC 3.51 L (4.1-5.4) x10^6/uL Hgb 11.2 L (12.0-16.0) g/dL Hct 32.0 L (35-47) % MCV 91.2 (78-100) fL MCH 31.9 (26-32) pg MCHC 35.0 (32-36) g/dL RDW 12.7 (11.5-14.0) % Plt Count 156 (150-450) x10^3/uL MPV 11.9 H (7.5-11.0) fL Gran % 63.8 (36.0-66.0) % Immature Gran % (Auto) 0.1 (0.00-0.4) % Nucleat RBC Rel Count 0.0 (0.00-0.1) % Eos # (Auto) 0.19 (0-0.5) x10^3/uL Immature Gran # (Auto) 0.01 (0.00-0.03) x10^3u/L Absolute Lymphs (auto) 1.86 (1.0-4.6) x10^3/uL Absolute Monos (auto) 0.56 (0.0-1.3) x10^3/uL Absolute Nucleated RBC 0.00 (0.00-0.01) x10^3u/L Lymphocytes % 25.5 (24.0-44.0) % Monocytes % 7.7 (0.0-12.0) % Eosinophils % 2.6 (0.00-5.0) % Basophils % 0.3 (0.0-0.4) % Absolute Granulocytes 4.66 (1.4-6.9) x10^3/uL Basophils # 0.02 (0-0.4) x10^3/uL Sodium 135 L (137-145) mmol/L Potassium 3.9 (3.5-5.1) mmol/L Chloride 106 (98-107) mmol/L Carbon Dioxide 22 (22-30) mmol/L Anion Gap 10.6 (5-15) MEQ/L BUN 9 (7-17) mg/dL Creatinine 0.54 (0.52-1.04) mg/dL Estimated GFR > 60.0 ML/MIN Glucose 82 (74-106) mg/dL Lactic Acid (0.4-2.0) Calcium 8.8 (8.4-10.2) mg/dL Magnesium 1.7 (1.6-2.3) mg/dL Total Bilirubin 0.20 (0.2-1.3) mg/dL AST 20 (14-36) U/L ALT 11 (0-35) U/L Alkaline Phosphatase 57 (38-126) U/L Troponin I (0.000-0.034) ng/mL NT-Pro-B Natriuret Pep 88.4 (0-450) pg/mL Serum Total Protein 6.6 (6.3-8.2) g/dL Albumin 3.6 (3.5-5.0) g/dL Amylase 67 (30-110) U/L Lipase 125 (23-300) U/L Urinalys Dipstick Clnc Urine Color (YELLOW) Urine Appearance (CLEAR) Urine pH (5-6) Ur Specific [place] (1.005-1.025) POC Urine Protein Conf (Negative) Urine Ketones (NEGATIVE) Urine Nitrite (NEGATIVE) Urine Bilirubin (NEGATIVE) Urine Urobilinogen (0-1) mg/dL Urine Leukocytes (NEGATIVE) Urine WBC (Auto) (0-5) /HPF Urine RBC (Auto) (0-2) /HPF U Epithel Cells (Auto) (FEW) /HPF Urine Bacteria (Auto) (NEGATIVE) /HPF Urine RBC (0-5) Diego/ul Urine Mucus (Auto) (NEGATIVE) /HPF Ur Culture Indicated? Urine Glucose (NEGATIVE) mg/dL - Progress Progress: improved Air Movement: good Blood Culture(s) Obtained: No Antibiotics given: No - Departure Departure Disposition: Home Clinical Impression: Migraine headache, Atypical chest pain Condition: Stable Critical Care Time: No Referrals: JOCELYNE HARMON MD [Primary Care Provider] - Follow up/PCP as directed Instructions: Chest Pain (DC), Migraines (DC) Prescriptions: Diphenhydramine HCl 25 mg [Benadryl 25 mg Capsule] 50 mg PO Q6H PRN PRN 3 Days #20 cap PRN Reason: Headache Metoclopramide HCl 10 mg [Reglan 10 MG] 10 mg PO Q6H 3 Days #12 tablet
[2021-07-23 21:31] LABS: ALBUMIN 3.6 g/dL (3.5-5.0); ALKALINE PHOSPHATASE 57 U/L (38-126); AMYLASE 67 U/L (30-110); ANION GAP 10.6 MEQ/L (5-15); BLOOD UREA NITROGEN 9 mg/dL (7-17); CHLORIDE 106 mmol/L (98-107); Calcium 8.8 mg/dL (8.4-10.2); Carbon Dioxide 22 mmol/L (22-30); Creatinine 1 0.54 mg/dL (0.52-1.04); EST GLOMERULAR FILTRATION RATE > 60.0 ML/MIN; Glucose 82 mg/dL (74-106); LIPASE 125 U/L (23-300); MAGNESIUM 1.7 mg/dL (1.6-2.3); NT PRO BNP 88.4 pg/mL (0-450); Potassium 3.9 mmol/L (3.5-5.1); SGOT/AST 20 U/L (14-36); SGPT/ALT 11 U/L (0-35); SODIUM 135 mmol/L (137-145); Total Protein 6.6 g/dL (6.3-8.2)
[2021-07-23 21:48] VITALS: BP 132/79; PULSE 63
[2021-07-23 21:54] LABS: Epithelial Cells RARE /HPF (FEW); Mucus SLIGHT /HPF (NEGATIVE); RBC 0-2 /HPF (0-2)
[2021-07-23 21:55] LABS: Appearance SLIGHTLY CLOUDY (CLEAR); Bilirubin NEGATIVE (NEGATIVE); Dipstick done @ ? MAIN LAB; Glucose NEGATIVE (NEGATIVE); Ketones NEGATIVE (NEGATIVE); Nitrite NEGATIVE (NEGATIVE); Protein,Urine Dip NEGATIVE (Negative); RBC NEGATIVE Ery/ul (0-5); Specific Gravity >=1.030 (1.005-1.025); Urobilinogen 2 mg/dL (0-1)
[2021-07-23 21:56] LABS: Urine Cultured Indicated? NO
[2021-07-23 22:18] VITALS: O2SAT 100
== END 2021-07-23 22:37 | disposition home or self-care (01) ==
LOC: ED 20:37
DX: G43.909 Migraine, unspecified, not intractable, without status migrainosus (principal); R07.89 Other chest pain; R42 Dizziness and giddiness; I10 Essential (primary) hypertension; Z79.891 Long term (current) use of opiate analgesic
CPT/HCPCS: 36000; 36415; 80053; 81015; 82150; 83605; 83690; 83735; 83880; 84484; 85025; 93005; 96374; 96375; 99284; J1170; J1200

== ENCOUNTER 2021-09-27 01:44 | Observation (INO) | payer OTHER ==
[2021-09-27 02:10] LABS: Appearance CLEAR (CLEAR); Bilirubin NEGATIVE (NEGATIVE); Dipstick done @ ? MAIN LAB; Glucose NEGATIVE (NEGATIVE); Ketones NEGATIVE (NEGATIVE); Nitrite NEGATIVE (NEGATIVE); Protein,Urine Dip NEGATIVE (Negative); RBC NEGATIVE Ery/ul (0-5); Urobilinogen 0.2 mg/dL (0-1)
[2021-09-27 02:11] LABS: Bacteria RARE /HPF (NEGATIVE); Epithelial Cells RARE /HPF (FEW); RBC 0-2 /HPF (0-2); Urine Cultured Indicated? YES
[2021-09-27 02:18] VITALS: BP 129/74; PULSE 65
[2021-09-27 02:22] LABS: Amphetamine,Urine NEGATIVE (NEGATIVE); Barbiturate,Urine NEGATIVE (NEGATIVE); Benzodiazepine,Urine NEGATIVE (NEGATIVE); Cocaine,Urine NEGATIVE (NEGATIVE); Methadone,Urine NEGATIVE (NEGATIVE); Opiate,Urine NEGATIVE (NEGATIVE); PCP,Urine NEGATIVE (NEGATIVE); THC,Urine NEGATIVE (NEGATIVE)
== END 2021-09-27 03:30 | disposition home or self-care (01) ==
LOC: OB 01:44 → UNDOADMOB 01:44 → UNDODISOB 03:30
PROVIDERS: ADMIT Family Medicine; ATTEND Family Medicine
DX: Z34.83 Encounter for supervision of other normal pregnancy, third trimester (principal); Z3A.33 33 weeks gestation of pregnancy
CPT/HCPCS: 80307; 81015; 87086; G0378

== ENCOUNTER 2021-11-08 21:25 | Emergency (ER) | payer OTHER ==
[2021-11-08 21:48] VITALS: O2SAT 98
[2021-11-08] MEDS ORDERED: ENALAPRILAT 2.5 MG INJECTION IV ONE ×2 (21:57→22:04)
--- NOTE | 2021-11-08 22:42 | ERPHSYRPT ---
- History of Present Illness Source: patient Exam Limitations: no limitations Patient Subjective Stated Complaint: pt states she has had a headache and her blood pressure has been high for last few weeks even with bp meds she is taking. pt is 2 weeks post and 1 week ago was diagnosed with pre eclampsia Triage Nursing Assessment: pt alert and oriented, answers questions approp. pt ambulatory with steady gait noted. respirations nonlabored. skin warm and dry. pupils equal and rective. bilat upper and lower ext strength equal and wnl Physician History: 26 yo F who was seen at [facility] ER last night for a MITCHELL presents w the same frontal MITCHELL that she has been having x 1day. Pt had an uncomplicated vaginal 2 wks ago in [place]. She had HTN before her controlled on Lisinopril/HCTZ. Pt is currently on labetalol and hydralyzine which is not controlling her BP. She states that she is currently not breast feeding. No focal weakness/fever/blurry vision/scotoma/reported. Nothing makes the pain better or worse. Timing/Duration: yesterday Quality: pressure Head Pain Location: frontal Severity of Pain-Max: severe Severity of Pain-Current: moderate Recent Head Trauma: frequent headaches Modifying Factors: Improves With: other (Nothing makes it better or worse) Associated Symptoms: No confusion, No dizziness, No fatigue, No facial pain, No fever/chills, No flushing, No light-headedness, No loss of consciousness, No zeferino sea/vomiting, No nasal congestion, No nasal drainage, No neck pain, No numbness in legs/feet, No rash, No sweating, No scotoma, No seizures, No sinus infection, No sensitive to light, No speech problems, No stiff neck, No trouble walking, No vision changes, No visual disturbance, No weakness Previous symptoms: same symptoms as today Allergies/Adverse Reactions: orange Allergy (Verified 11/08/21 21:48) Rash Penicillins Adverse Reaction (Severe, Verified 11/08/21 21:48) tachycardia escitalopram [From Lexapro] Adverse Reaction (Verified 11/08/21 21:48) does not remember had a rx as a child nifedipine Adverse Reaction (Verified 11/08/21 21:48) Rapid Heart Beat sertraline [From Zoloft] Adverse Reaction (Verified 11/08/21 21:48) Nausea and Vomiting Home Medications: Buprenorphine HCl/Naloxone HCl [Buprenorphin-Naloxon 8-2 mg Sl] 1.5 each SL DAILY 11/08/21 [History] Hydralazine HCl 50 mg PO TID 11/08/21 [History] Labetalol HCl 100 mg [Trandate 100 MG] 400 mg PO TID 11/08/21 [History] Hx Tetanus, Diphtheria Vaccination/Date Given: Yes Hx Influenza Vaccination/Date Given: Yes Hx Pneumococcal Vaccination/Date Given: No Immunizations Up to Date: Yes Travel Risk - International Travel Have you traveled outside of the country in past 3 weeks: No - Coronavirus Screening Are you exhibiting any of the following symptoms?: No Close contact with a COVID-19 positive Pt in past 14-21 Days: No - Vaccine Status Have you recieved a Covid-19 vaccination: Yes Quality Liaison: Moderna - Vaccination Dates Date of 2cond Vaccination (if applicable): jan 2021 - Review of Systems Constitutional: No Symptoms Eyes: No Symptoms Ears, Nose, & Throat: No Symptoms Respiratory: No Symptoms Cardiac: No Symptoms Abdominal/Gastrointestinal: No Symptoms Genitourinary Symptoms: No Symptoms Musculoskeletal: No Symptoms Skin: No Symptoms Neurological: No Symptoms, Headache Psychological: No Symptoms Endocrine: No Symptoms Hematologic/Lymphatic: No Symptoms Immunological/Allergic: No Symptoms - Past Medical History Pertinent Past Medical History: Yes Cardiac History: Hypertension Psycho-Social History: Anxiety Other Medical History: pre-eclampsia. HTN - Past Surgical History Past Surgical History: No Neuro Surgical History: No Pertinent History Cardiac: No Pertinent History Gastrointestinal: No Pertinent History Musculoskeletal: No Pertinent History Female Surgical History: No Pertinent History Other Surgical History: abscess to right breast - Social History Smoking Status: Former smoker Exposure to second hand smoke: No Drug Use: none Patient Lives Alone: No Significant Family History: no pertinent family hx - Female History Hx Now: No - Nursing Vital Signs Nursing Vital Signs: Initial Vital Signs Temperature 99.0 F 11/08/21 21:40 Pulse Rate 65 11/08/21 21:40 Respiratory Rate 16 11/08/21 21:40 Blood Pressure 176/108 11/08/21 21:40 O2 Sat by Pulse Oximetry 98 11/08/21 21:40 Pain Scale Pain Intensity 4 Hypertensive - Physical Exam General Appearance: no apparent distress Eye Exam: PERRL/EOMI, eyes nml inspection Ears, Nose, Throat Exam: normal ENT inspection, TMs normal, pharynx normal, moist mucous membranes Neck Exam: normal inspection, non-tender, supple, full range of motion, No meningismus, No mass, No Brudzinski, No Kernig's, No carotid bruit Respiratory Exam: normal breath sounds, lungs clear, airway intact Cardiovascular Exam: regular rate/rhythm, normal heart sounds, normal peripheral pulses, capillary refill <2 sec, No murmur Gastrointestinal/Abdominal Exam: soft, normal bowel sounds, No tenderness Back Exam: normal inspection, normal range of motion, vertebral tenderness, No CVA tenderness Extremity Exam: normal inspection, normal range of motion Mental Status Exam: alert, oriented x 3, 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 Exam: normal hearing, normal speech, PERRL Coordination/Gait Exam: normal gait, normal cerebellar function, negative Romberg's sign Motor/Sensory Exam: no motor deficit, no sensory deficit, no pronator drift, negative Babinski's sign DTR Exam: bicep (R): 2+, bicep (L): 2+ Skin Exam: normal color, warm, dry Lymphatic Exam: No adenopathy SpO2 Interpretation: normal SpO2: 98 O2 Delivery: Room Air - Course Nursing assessment & vital signs reviewed: Yes - CT Exams Head CT Interpretation: Tele-radiologist Report (CT head neg) Ordered Tests: Active Orders 24 hr Category Date Time Status HEAD WITHOUT CONTRAST [CT] Stat Exams 11/08/21 21:54 Taken Medication Summary Discontinued Medications Generic Name Dose Route Start Last Admin Trade Name Robelq PRN Reason Stop Dose Admin Enalaprilat 1.25 mg 11/08/21 21:57 11/08/21 22:04 Enalaprilat 2.5 Mg Injection IV 11/08/21 21:58 1.25 mg STAT ONE Administration Enalaprilat Confirm 11/08/21 22:04 Enalaprilat 2.5 Mg Injection Administered 11/08/21 22:05 Dose 2.5 mg IV .STK-MED ONE Fentanyl Citrate 100 mcg 11/08/21 23:44 11/08/21 23:53 Fentanyl Citrate 100 Mcg/2 Ml* Vial IV 11/08/21 23:45 Not Given STAT ONE Fentanyl Citrate Confirm 11/08/21 23:47 Fentanyl Citrate 100 Mcg/2 Ml* Vial Administered 11/08/21 23:48 Dose 100 mcg .ROUTE .STK-MED ONE Ketorolac Tromethamine 15 mg 11/08/21 23:59 11/09/21 00:12 Ketorolac Tromethamine 30 Mg/Ml Inj IV 11/09/21 00:00 15 mg STAT ONE Administration Ketorolac Tromethamine Confirm 11/09/21 00:11 Ketorolac Tromethamine 30 Mg/Ml Inj Administered 11/09/21 00:12 Dose 30 mg .ROUTE .STK-MED ONE Ondansetron HCl 4 mg 11/08/21 23:44 11/08/21 23:53 Ondansetron Hcl 4 Mg/2 Ml Vial IV 11/08/21 23:45 Not Given STAT ONE Ondansetron HCl Confirm 11/08/21 23:47 Ondansetron Hcl 4 Mg/2 Ml Vial Administered 11/08/21 23:48 Dose 4 mg .ROUTE .STK-MED ONE - Progress Progress: improved Progress Note: 11/09/21 00:00 BP improved w 1.25mg IV Vasotec Pt refused 100mcg IV Fentanyl/4mg IV Zofran 15mg IV Toradol Pt not breast feeding and wants to restart Lisinopril/HCTZ. Counseled pt/family regarding: diagnosis, need for follow-up, rad results - Departure Departure Disposition: Home Clinical Impression: Headache, Hypertension Condition: Stable Critical Care Time: No Referrals: JOCELYNE HARMON MD [Primary Care Provider] - Follow up/PCP as directed Instructions: Headache, Adult (DC), Malignant Hypertension (DC) Additional Instructions: Follow up with Dr. Harmon in 1-2 days Start Lisinopril 10mg once a day Start HCTZ once a day Stop Hydralyzine Wean labetalol 3 tabs tomorrow, then 1 tab twice a day for 2 days, then 1 tab daily for 2 days Do not take Lisinopril or HCTZ if you start to breast feed again Return to ER for increasing pain or focal weakness Keep a blood pressure log to show to Dr. Harmon Prescriptions: hydroCHLOROthiazide [Hydrochlorothiazide] 12.5 mg PO DAILY #30 tablet Lisinopril 10 mg [Zestril 10 MG] 10 mg PO DAILY #30 tablet
[2021-11-08] MEDS ORDERED: Zofran 4 MG/2 ML VIAL IV ONE (23:44)
[2021-11-08] MEDS ORDERED: SUBLIMAZE 100 MCG/2 ML IV ONE (23:44)
[2021-11-08] MEDS ORDERED: SUBLIMAZE 100 MCG/2 ML ONE (23:47)
[2021-11-08] MEDS ORDERED: Zofran 4 MG/2 ML VIAL ONE (23:47)
[2021-11-08] MEDS ORDERED: TORAdol 30 mg Injection IV ONE (23:59)
[2021-11-09] MEDS ORDERED: TORAdol 30 mg Injection ONE (00:11)
[2021-11-09 00:16] VITALS: BP 138/98; PULSE 69
--- NOTE | 2021-11-10 09:35 | XRAY ---
Exam: CT of the head without IV contrast from 11/08/2021. CTDI: 53.92 mGy Comparison: None. Indication: 26-year-old female with nonspecified headache/pain; history of hypertension. Technique: Non-IV contrast axial images were obtained through the brain. Reconstructed coronal and sagittal images were created and reviewed. Findings: The ventricles are normal size and configuration. No focal mass effect or midline shift is seen. No acute intracranial bleed or abnormal extra-axial fluid collection is seen. Meraz matter-white matter interfaces appear unremarkable. No low attenuation lesion is seen to suggest focal edema or an infarct. The cortical sulci and basilar cisterns appear unremarkable. The calvarium of the skull appears intact without fracture or destructive bone lesion. There is moderate mucosal thickening within the inferior aspect of both maxillary sinuses, left greater than right. A 1.9 cm in diameter oval-shaped polyp or retention cyst cannot be excluded at the inferior aspect of the left maxillary sinus. I also note some mild scattered mucosal thickening within the ethmoid sinuses bilaterally. No air-fluid levels are seen. The mastoid air cells are clear without effusion. The middle ear cavities appear unremarkable. The orbits appear grossly unremarkable. Impression: 1. No acute intracranial bleed or other acute intracranial process is seen. 2. Chronic bilateral maxillary and ethmoid sinus disease/sinusitis. No air-fluid levels are seen.
== END 2021-11-09 00:26 | disposition home or self-care (01) ==
LOC: ED 21:25
DX: I10 Essential (primary) hypertension (principal); R51.9 Headache, unspecified; Z79.891 Long term (current) use of opiate analgesic; Z79.899 Other long term (current) drug therapy
CPT/HCPCS: 36000; 70450; 96374; 96375; 99284; J1885; J2405; J3010

== ENCOUNTER 2022-01-16 21:47 | Emergency (ER) | payer OTHER | END 2022-01-16 22:30 | disposition left against medical advice (07) | LOC: ED 21:47 | DX: Z53.21 Procedure and treatment not carried out due to patient leaving prior to being seen by health care provider (principal) ==

== ENCOUNTER 2022-03-03 20:45 | Emergency (ER) | payer OTHER ==
[2022-03-03 21:03] VITALS: O2SAT 100
--- NOTE | 2022-03-03 21:05 | ERPHSYRPT ---
- History of Present Illness Time Seen by Provider: 03/03/22 21:05 Patient Subjective Stated Complaint: pt states "I have been having headaches off and on for the past 2 months but I don't know if it is because of my blood pressure has been high lately." Triage Nursing Assessment: pt ambulatory to bed by self, alert and oriented x3, pt c/o headache and high pressure off and on for 2 months, pt takes 10 mg lisinopril daily for HTN, pt states today her blood pressure was running around 190/105 today so she took 20 mg of lisinopril total today along with 2 81 mg of aspirin , pt does have a doctor's appt scheduled on 03/16/22 Physician History: This is a 26-year-old female who has a history of hypertension and over the last 2 months, after Nexplanon implant placed, she has noticed more frequent headaches as well as intermittent elevation of her blood pressure. Patient's systolic blood pressure today is 136. She thinks that her control implant might be causing the increase in her blood pressure and frequency of her headaches. She denies head trauma Timing/Duration: intermittent Quality: aching Head Pain Location: global Severity of Pain-Max: mild Severity of Pain-Current: mild Recent Head Trauma: occasional headaches Associated Symptoms: denies symptoms Previous symptoms: no recent treatment Allergies/Adverse Reactions: orange Allergy (Verified 03/03/22 20:51) Rash Penicillins Adverse Reaction (Severe, Verified 03/03/22 20:51) tachycardia escitalopram [From Lexapro] Adverse Reaction (Verified 03/03/22 20:51) does not remember had a rx as a child nifedipine Adverse Reaction (Verified 03/03/22 20:51) Rapid Heart Beat sertraline [From Zoloft] Adverse Reaction (Verified 03/03/22 20:51) Nausea and Vomiting Home Medications: Buprenorphine HCl/Naloxone HCl [Buprenorphin-Naloxon 8-2 mg Sl] 1.5 each SL DAILY 11/08/21 [History] Hydralazine HCl 50 mg PO TID 11/08/21 [History] Labetalol HCl 100 mg [Trandate 100 MG] 400 mg PO TID 11/08/21 [History] Hx Tetanus, Diphtheria Vaccination/Date Given: Yes Hx Influenza Vaccination/Date Given: Yes Hx Pneumococcal Vaccination/Date Given: No Immunizations Up to Date: No Travel Risk - International Travel Have you traveled outside of the country in past 3 weeks: No - Coronavirus Screening Are you exhibiting any of the following symptoms?: No - Vaccine Status Have you recieved a Covid-19 vaccination: Yes 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 - Vaccination Dates Date of 2cond Vaccination (if applicable): jan 2021 - Review of Systems Constitutional: No Symptoms Eyes: No Symptoms Ears, Nose, & Throat: No Symptoms Respiratory: No Symptoms Cardiac: No Symptoms Abdominal/Gastrointestinal: No Symptoms Genitourinary Symptoms: No Symptoms Musculoskeletal: No Symptoms Skin: No Symptoms Neurological: No Symptoms, Headache Psychological: No Symptoms Endocrine: No Symptoms Hematologic/Lymphatic: No Symptoms Immunological/Allergic: No Symptoms All Other Systems: Reviewed and Negative - Past Medical History Pertinent Past Medical History: Yes Neurological History: No Pertinent History ENT History: No Pertinent History Cardiac History: Hypertension Respiratory History: No Pertinent History Endocrine Medical History: No Pertinent History Musculoskeletal History: No Pertinent History GI Medical History: No Pertinent History History: No Pertinent History Psycho-Social History: Anxiety, Depression Female Reproductive Disorders: No Pertinent History Other Medical History: pre-eclampsia. HTN - Past Surgical History Past Surgical History: Yes Neuro Surgical History: No Pertinent History Cardiac: No Pertinent History Gastrointestinal: No Pertinent History Musculoskeletal: No Pertinent History Female Surgical History: No Pertinent History Other Surgical History: abscess to right breast - Social History Smoking Status: Former smoker Exposure to second hand smoke: No Drug Use: none Patient Lives Alone: No Significant Family History: no pertinent family hx - Female History Hx Last Menstrual Period: on control Hx Now: No - Nursing Vital Signs Nursing Vital Signs: Initial Vital Signs Temperature 98.7 F 03/03/22 20:52 Pulse Rate 72 03/03/22 20:52 Respiratory Rate 18 03/03/22 20:52 Blood Pressure 135/62 03/03/22 20:52 O2 Sat by Pulse Oximetry 100 03/03/22 20:52 Pain Scale Pain Intensity 6 - Physical Exam General Appearance: no apparent distress, alert, anxiety Eye Exam: PERRL/EOMI, eyes nml inspection Ears, Nose, Throat Exam: normal ENT inspection, moist mucous membranes Neck Exam: normal inspection, non-tender, supple, full range of motion Respiratory Exam: airway intact, No chest tenderness, No respiratory distress Gastrointestinal/Abdominal Exam: No tenderness Back Exam: normal inspection, normal range of motion, No CVA tenderness, No vertebral tenderness Extremity Exam: normal inspection, normal range of motion, pelvis stable Mental Status Exam: alert, oriented x 3, 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 Exam: normal hearing, normal speech, PERRL Coordination/Gait Exam: normal finger to nose, normal gait, normal cerebellar function Motor/Sensory Exam: no motor deficit, no sensory deficit, no pronator drift Skin Exam: normal color, warm, dry Lymphatic Exam: No adenopathy SpO2 Interpretation: normal SpO2: 100 O2 Delivery: Room Air - Course Nursing assessment & vital signs reviewed: Yes Ordered Tests: Active Orders 24 hr Category Date Time Status HEAD WITHOUT CONTRAST [CT] Stat Exams 03/03/22 21:05 Taken HCG,QUALITATIVE URINE Stat Lab 03/03/22 21:36 Completed UA W/RFX UR CULTURE Stat Lab 03/03/22 21:36 Completed Lab/Rad Data: Laboratory Results 03/03/22 03/03/22 Range/Units 21:36 21:36 Urine Color Yellow (Yellow) Urine Appearance Clear (Clear) Urine pH 6.0 (4.6-8.0) Ur Specific [place] 1.025 (1.005-1.030) Urine Protein Negative (Negative) Urine Glucose (UA) Negative (Negative) mg/dL Urine Ketones Trace A (Negative) Urine Blood Negative (Negative) Urine Nitrite Negative (Negative) Urine Bilirubin Negative (Negative) Urine Urobilinogen 1.0 A (0.2) mg/dL Ur Leukocyte Esterase Trace A (Negative) U Hyaline Cast (Auto) NONE SEEN (0-2) /LPF Urine Microscopic RBC 0-2 (0-5) /HPF Urine Microscopic WBC 3-5 (0-5) /HPF Ur Epithelial Cells Few (None Seen) /HPF Urine Bacteria None Seen (None Seen) /HPF Urine Culture Reflexed NO (NO) Urine HCG, Qual NEGATIVE (Negative) - Progress Progress: unchanged Air Movement: good Progress Note: 03/03/22 22:28 CT of the head without contrast shows no acute intracranial abnormality Blood Culture(s) Obtained: No Antibiotics given: No Counseled pt/family regarding: lab results, need for follow-up, rad results - Departure Departure Disposition: Home Clinical Impression: Medication side effects, Mild dehydration Condition: Stable Critical Care Time: No Referrals: LAMAR SANDOVAL MD [Primary Care Provider] - Follow up/PCP as directed Additional Instructions: Follow-up with your primary prescribing provider for further evaluation management
[2022-03-03 21:56] LABS: Appearance Clear (Clear); Bacteria None Seen /HPF (None Seen); Bilirubin Negative (Negative); Blood Negative (Negative); Epithelial Cells Few /HPF (None Seen); Glucose, Urine Negative (Negative); Hyaline Casts NONE SEEN /LPF (0-2); Ketones Trace (Negative); Leukocyte Esterase Trace (Negative); Nitrite Negative (Negative); Protein,Urine Dip Negative (Negative); RBC 0-2 /HPF (0-5); Specific Gravity 1.025 (1.005-1.030)
[2022-03-03 22:02] VITALS: BP 131/70; PULSE 67
[2022-03-03 22:08] LABS: ADD URINE CULTURE? NO (NO)
--- NOTE | 2022-03-04 08:30 | XRAY ---
Indication: Headache. Multiple contiguous axial images obtained through the head without contrast. Comparison: November 08, 2021 Normal appearing brain parenchyma, ventricles, and bony calvarium. Visualized paranasal sinuses and mastoid air cells are clear. Impression: Continued normal CT head without contrast exam. Comment: Preliminary interpretation made by [facility]. No critical discrepancy.
== END 2022-03-03 22:41 | disposition home or self-care (01) ==
LOC: ED 20:45
DX: G44.40 Drug-induced headache, not elsewhere classified, not intractable (principal); T38.5X5A Adverse effect of other estrogens and progestogens, initial encounter; I10 Essential (primary) hypertension; Z79.891 Long term (current) use of opiate analgesic; Z79.899 Other long term (current) drug therapy
CPT/HCPCS: 70450; 81001; 81025; 99283

== ENCOUNTER 2022-03-13 20:04 | Emergency (ER) | payer OTHER ==
--- NOTE | 2022-03-13 20:58 | ERPHSYRPT ---
- History of Present Illness Source: patient Exam Limitations: no limitations Patient Subjective Stated Complaint: pt states she has headache since last week that has celso getting worse. also c/o weakness and dizziness at times. Triage Nursing Assessment: pt alert and oriented, answers questions approp. pt ambulatory with steady giat noted. respirations nonlabored. skin warm and dry. pupils equal and reactive. bilat upper and lower ext strength equal and wnl. Physician History: 26 yo female w global headache x 1 week. Pain is "throbbing" and 6/10 on scale. She has had N/V wo fever/focal weakness. Noises seem to make the pain worse. Pt was seen in the ER on 03/03/[address] head. Head trauma is also denied.Pt has a h/o HTN. Timing/Duration: other (1 week) Quality: throbbing Head Pain Location: global Severity of Pain-Max: severe Severity of Pain-Current: moderate Recent Head Trauma: occasional headaches Modifying Factors: Improves With: noise Associated Symptoms: denies symptoms Previous symptoms: no prior history Allergies/Adverse Reactions: orange Allergy (Verified 03/13/22 20:44) Rash Penicillins Adverse Reaction (Severe, Verified 03/13/22 20:44) tachycardia escitalopram [From Lexapro] Adverse Reaction (Verified 03/13/22 20:44) does not remember had a rx as a child nifedipine Adverse Reaction (Verified 03/13/22 20:44) Rapid Heart Beat sertraline [From Zoloft] Adverse Reaction (Verified 03/13/22 20:44) Nausea and Vomiting Home Medications: Buprenorphine HCl/Naloxone HCl [Buprenorphin-Naloxon 8-2 mg Sl] 1.5 each SL DAILY 11/08/21 [History] Aspirin EC 81 mg [Ecotrin 81 mg] 81 mg PO DAILY 03/13/22 [History] Hx Tetanus, Diphtheria Vaccination/Date Given: Yes Hx Influenza Vaccination/Date Given: Yes Hx Pneumococcal Vaccination/Date Given: No Immunizations Up to Date: Yes Travel Risk - International Travel Have you traveled outside of the country in past 3 weeks: No - Coronavirus Screening Are you exhibiting any of the following symptoms?: No Close contact with a COVID-19 positive Pt in past 14-21 Days: No - Vaccine Status Have you recieved a Covid-19 vaccination: Yes 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 - Vaccination Dates Date of 2cond Vaccination (if applicable): jan 2021 - Review of Systems Constitutional: No Symptoms Eyes: No Symptoms Ears, Nose, & Throat: No Symptoms Respiratory: No Symptoms Cardiac: No Symptoms Abdominal/Gastrointestinal: No Symptoms Genitourinary Symptoms: No Symptoms Musculoskeletal: No Symptoms Skin: No Symptoms Neurological: No Symptoms, Headache Psychological: No Symptoms Endocrine: No Symptoms Hematologic/Lymphatic: No Symptoms Immunological/Allergic: No Symptoms - Past Medical History Pertinent Past Medical History: Yes Neurological History: No Pertinent History ENT History: No Pertinent History Cardiac History: Hypertension Respiratory History: No Pertinent History Endocrine Medical History: No Pertinent History Musculoskeletal History: No Pertinent History GI Medical History: No Pertinent History History: No Pertinent History Psycho-Social History: Anxiety, Depression Female Reproductive Disorders: No Pertinent History Other Medical History: pre-eclampsia. HTN - Past Surgical History Past Surgical History: Yes Neuro Surgical History: No Pertinent History Cardiac: No Pertinent History Gastrointestinal: No Pertinent History Musculoskeletal: No Pertinent History Female Surgical History: No Pertinent History Other Surgical History: abscess to right breast - Social History Smoking Status: Former smoker Exposure to second hand smoke: No Drug Use: none Patient Lives Alone: No Significant Family History: no pertinent family hx - Female History Hx Last Menstrual Period: irreg- was on bc Hx Now: No - Nursing Vital Signs Nursing Vital Signs: Initial Vital Signs Temperature 99.2 F 03/13/22 20:34 Pulse Rate 99 H 03/13/22 20:34 Respiratory Rate 16 03/13/22 20:34 Blood Pressure 138/80 03/13/22 20:34 O2 Sat by Pulse Oximetry 99 03/13/22 20:34 Pain Scale Pain Intensity 6 Hypertensive - Physical Exam General Appearance: no apparent distress Eye Exam: PERRL/EOMI, eyes nml inspection Ears, Nose, Throat Exam: normal ENT inspection, TMs normal, pharynx normal, moist mucous membranes Neck Exam: normal inspection, non-tender, supple, full range of motion, No meningismus, No mass, No Brudzinski, No Kernig's Respiratory Exam: normal breath sounds, lungs clear, airway intact Cardiovascular Exam: regular rate/rhythm, normal heart sounds, normal peripheral pulses, capillary refill <2 sec, No murmur Gastrointestinal/Abdominal Exam: soft, normal bowel sounds Back Exam: normal inspection, normal range of motion, No CVA tenderness, No vertebral tenderness Extremity Exam: normal inspection, normal range of motion Mental Status Exam: alert, oriented x 3, 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 Exam: normal hearing, normal speech, PERRL, No abnormal eye position, No abnormal gag reflex Coordination/Gait Exam: normal gait, normal cerebellar function Motor/Sensory Exam: no motor deficit, no sensory deficit, no pronator drift, negative Babinski's sign DTR Exam: bicep (R): 2+, bicep (L): 2+ Skin Exam: normal color, warm, dry Lymphatic Exam: No adenopathy SpO2 Interpretation: normal SpO2: 99 O2 Delivery: Room Air - Course Nursing assessment & vital signs reviewed: Yes - CT Exams Head CT Interpretation: Tele-radiologist Report (CT head w and wo contrast neg per [facility]) Ordered Tests: Active Orders 24 hr Category Date Time Status HEAD W/WO CONTRAST [CT] Stat Exams 03/13/22 21:45 Taken CBC W DIFF Stat Lab 03/13/22 21:20 Completed CMP Stat Lab 03/13/22 21:20 Completed HCG QUALITATIVE,SERUM Stat Lab 03/13/22 21:20 Completed Medication Summary Discontinued Medications Generic Name Dose Route Start Last Admin Trade Name Freq PRN Reason Stop Dose Admin Ketorolac Tromethamine 15 mg 03/14/22 00:08 03/14/22 00:12 Ketorolac Tromethamine 30 Mg/Ml Inj IV 03/14/22 00:09 15 mg STAT ONE Administration Ketorolac Tromethamine Confirm 03/14/22 00:10 Ketorolac Tromethamine 30 Mg/Ml Inj Administered 03/14/22 00:11 Dose 30 mg .ROUTE .Klout-MED ONE Lab/Rad Data: Laboratory Result Diagrams 03/13/22 21:20 03/13/22 21:20 Laboratory Results 03/13/22 03/13/22 03/13/22 Range/Units 21:20 21:20 21:20 WBC (4.0-10.5) x10^3/uL RBC (4.1-5.4) x10^6/uL Hgb (12.0-16.0) g/dL Hct (35-47) % MCV (78-100) fL MCH (26-32) pg MCHC (32-36) g/dL RDW (11.5-14.0) % Plt Count (150-450) x10^3/uL MPV (7.5-11.0) fL Gran % (36.0-66.0) % Immature Gran % (Auto) (0.00-0.4) % Nucleat RBC Rel Count (0.00-0.1) % Eos # (Auto) (0-0.5) x10^3/uL Immature Gran # (Auto) (0.00-0.03) x10^3u/L Absolute Lymphs (auto) (1.0-4.6) x10^3/uL Absolute Monos (auto) (0.0-1.3) x10^3/uL Absolute Nucleated RBC (0.00-0.01) x10^3u/L Lymphocytes % (24.0-44.0) % Monocytes % (0.0-12.0) % Eosinophils % (0.00-5.0) % Basophils % (0.0-0.4) % Absolute Granulocytes (1.4-6.9) x10^3/uL Basophils # (0-0.4) x10^3/uL Sodium 138 (137-145) mmol/L Potassium 4.3 (3.5-5.1) mmol/L Chloride 103 (98-107) mmol/L Carbon Dioxide 30 (22-30) mmol/L Anion Gap 8.8 (5-15) MEQ/L BUN 11 (7-17) mg/dL Creatinine 0.64 (0.52-1.04) mg/dL Estimated GFR > 60.0 ML/MIN Glucose 102 (74-106) mg/dL Calcium 8.9 (8.4-10.2) mg/dL Total Bilirubin 0.30 (0.2-1.3) mg/dL AST 35 (14-36) U/L ALT 62 H (0-35) U/L Alkaline Phosphatase 99 (38-126) U/L Serum Total Protein 7.8 (6.3-8.2) g/dL Albumin 4.6 (3.5-5.0) g/dL Serum , Qual NEGATIVE (Negative) Influenza Type A Ag NEGATIVE (NEGATIVE) Influenza Type B Ag NEGATIVE (NEGATIVE) RSV (PCR) NEGATIVE (Negative) SARS-CoV-2 (PCR) NEGATIVE (NEGATIVE) 03/13/22 Range/Units 21:20 WBC 5.4 (4.0-10.5) x10^3/uL RBC 4.26 (4.1-5.4) x10^6/uL Hgb 13.2 (12.0-16.0) g/dL Hct 39.4 (35-47) % MCV 92.5 (78-100) fL MCH 31.0 (26-32) pg MCHC 33.5 (32-36) g/dL RDW 11.7 (11.5-14.0) % Plt Count 191 (150-450) x10^3/uL MPV 10.9 (7.5-11.0) fL Gran % 60.0 (36.0-66.0) % Immature Gran % (Auto) 0.2 (0.00-0.4) % Nucleat RBC Rel Count 0.0 (0.00-0.1) % Eos # (Auto) 0.12 (0-0.5) x10^3/uL Immature Gran # (Auto) 0.01 (0.00-0.03) x10^3u/L Absolute Lymphs (auto) 1.51 (1.0-4.6) x10^3/uL Absolute Monos (auto) 0.48 (0.0-1.3) x10^3/uL Absolute Nucleated RBC 0.00 (0.00-0.01) x10^3u/L Lymphocytes % 28.1 (24.0-44.0) % Monocytes % 8.9 (0.0-12.0) % Eosinophils % 2.2 (0.00-5.0) % Basophils % 0.6 (0.0-0.4) % Absolute Granulocytes 3.22 (1.4-6.9) x10^3/uL Basophils # 0.03 (0-0.4) x10^3/uL Sodium (137-145) mmol/L Potassium (3.5-5.1) mmol/L Chloride (98-107) mmol/L Carbon Dioxide (22-30) mmol/L Anion Gap (5-15) MEQ/L BUN (7-17) mg/dL Creatinine (0.52-1.04) mg/dL Estimated GFR ML/MIN Glucose (74-106) mg/dL Calcium (8.4-10.2) mg/dL Total Bilirubin (0.2-1.3) mg/dL AST (14-36) U/L ALT (0-35) U/L Alkaline Phosphatase (38-126) U/L Serum Total Protein (6.3-8.2) g/dL Albumin (3.5-5.0) g/dL Serum , Qual (Negative) Influenza Type A Ag (NEGATIVE) Influenza Type B Ag (NEGATIVE) RSV (PCR) (Negative) SARS-CoV-2 (PCR) (NEGATIVE) - Progress Progress Note: 03/14/22 00:10 Nursing note and vital signs reviewed All labs and Ct results reviewed and shared w pt 15mg IV Toradol Pt in NAD during entire visit Pt wo evidence of CVA or meningitis during stay 03/14/22 00:11 03/14/22 00:13 Counseled pt/family regarding: lab results, diagnosis, need for follow-up, rad results - Departure Departure Disposition: Home Clinical Impression: Headache Condition: Stable Critical Care Time: No Referrals: LAMAR SANDOVAL MD [Primary Care Provider] - Follow up/PCP as directed Instructions: Headache, Adult (DC) Additional Instructions: Follow up with yojames family in 1-2 days Return to ER for increasing pain, focal weakness, or temperature greater than 100.5
[2022-03-13 21:27] LABS: Absolute Neutrophil Ct (ANC) 3.22 x10^3/uL (1.4-6.9); BASOPHIL % 0.6 % (0.0-0.4); Basophil (Absolute #) 0.03 x10^3/uL (0-0.4); Eosinophil % 2.2 % (0.00-5.0); Eosinophil (Absolute #) 0.12 x10^3/uL (0-0.5); Hematocrit 39.4 % (35-47); Hemoglobin 13.2 g/dL (12.0-16.0); IMMATURE GRAN # 0.01 x10^3u/L (0.00-0.03); IMMATURE GRAN % 0.2 % (0.00-0.4); Lymphocyte (Absolute #) 1.51 x10^3/uL (1.0-4.6); Lymphocytes % 28.1 % (24.0-44.0); Mean Cell Volume 92.5 fL (78-100); Mean Corpuscular Hgb Concent. 33.5 g/dL (32-36); Mean Platelet Volume 10.9 fL (7.5-11.0); Monocyte (Absolute #) 0.48 x10^3/uL (0.0-1.3); Monocytes % 8.9 % (0.0-12.0); Platelet Count 191 x10^3/uL (150-450); Red Blood Count 4.26 x10^6/uL (4.1-5.4); Red Cell Distribution Width 11.7 % (11.5-14.0); White Blood Count 5.4 x10^3/uL (4.0-10.5)
[2022-03-13 21:38] LABS: ALBUMIN 4.6 g/dL (3.5-5.0); ALKALINE PHOSPHATASE 99 U/L (38-126); ANION GAP 8.8 MEQ/L (5-15); BLOOD UREA NITROGEN 11 mg/dL (7-17); CHLORIDE 103 mmol/L (98-107); Calcium 8.9 mg/dL (8.4-10.2); Carbon Dioxide 30 mmol/L (22-30); Creatinine 1 0.64 mg/dL (0.52-1.04); EST GLOMERULAR FILTRATION RATE > 60.0 ML/MIN; Glucose 102 mg/dL (74-106); Potassium 4.3 mmol/L (3.5-5.1); SGOT/AST 35 U/L (14-36); SGPT/ALT 62 U/L (0-35); SODIUM 138 mmol/L (137-145); Total Protein 7.8 g/dL (6.3-8.2)
[2022-03-13 22:04] LABS: INFLUENZA A NEGATIVE (NEGATIVE); INFLUENZA B NEGATIVE (NEGATIVE); RESPIRATORY SYNCTIAL VIRUS NEGATIVE (Negative); SARS-CoV-2 Xpert Express NEGATIVE (NEGATIVE)
[2022-03-13 22:29] VITALS: PULSE 67
[2022-03-13 23:45] VITALS: O2SAT 99
[2022-03-14] MEDS ORDERED: TORAdol 30 mg Injection IV ONE (00:08)
[2022-03-14] MEDS ORDERED: TORAdol 30 mg Injection ONE (00:10)
[2022-03-14 00:29] VITALS: BP 103/57
--- NOTE | 2022-03-14 08:54 | XRAY ---
Indication: Intractable headache. Multiple contiguous images obtained through the head prior to and following 80 cc Isovue 370 contrast as ordered. Comparison: March 03, 2022 Noncontrast images again demonstrates normal appearing brain parenchyma and ventricles. Postcontrast images are negative for abnormal enhancing intra-or extra-axial mass. Bony calvarium intact. Visualized paranasal sinuses and mastoid air cells are clear. Impression: No change compared to CT head without contrast exam [address] head with and without contrast exam. Comment: Preliminary interpretation made by [facility]. No critical discrepancy.
== END 2022-03-14 00:43 | disposition home or self-care (01) ==
LOC: ED 20:04
DX: R51.9 Headache, unspecified (principal); R11.2 Nausea with vomiting, unspecified; I10 Essential (primary) hypertension; Z79.891 Long term (current) use of opiate analgesic; Z79.899 Other long term (current) drug therapy
CPT/HCPCS: 0241U; 36415; 70470; 80053; 84703; 85025; 96374; 99283; J1885

== ENCOUNTER 2022-03-26 01:31 | Emergency (ER) | payer OTHER ==
--- NOTE | 2022-03-26 02:02 | ERPHSYRPT ---
- History of Present Illness Time Seen by Provider: 03/26/22 02:01 Historian: patient Exam Limitations: no limitations Physician History: Patient brought in by ambulance after experiencing chest pain, shallow breathing, palpitations and shortness of breath for approximately 30 minutes just prior to arrival. She has a history of anxiety and is on buspirone, but has never had an episode similar to this in the past. Chest pain was in the center of her chest without radiation. She denies any nausea, vomiting or abdominal pain. Patient did report some dizziness, but no loss of consciousness was reported. Patient denied taking any medications to help with symptoms. Timing/Duration: today Activities at Onset: none Quality: sharpness, tightness Location: substernal Chest Pain Radiation: no radiation Severity of Pain-Max: moderate Severity of Pain-Current: none Modifying Factors: Improves With: breathing Associated Symptoms: palpitations, shortness of breath, dizziness Prior Chest Pain/Cardiac Workup: no prior chest pain Nitro Today/Relief: no nitro taken today Aspirin Treatment Today: 81 mg x 4, provided by EMS Allergies/Adverse Reactions: orange Allergy (Verified 03/26/22 02:10) Rash Penicillins Adverse Reaction (Severe, Verified 03/26/22 02:10) tachycardia escitalopram [From Lexapro] Adverse Reaction (Verified 03/26/22 02:10) does not remember had a rx as a child nifedipine Adverse Reaction (Verified 03/26/22 02:10) Rapid Heart Beat sertraline [From Zoloft] Adverse Reaction (Verified 03/26/22 02:10) Nausea and Vomiting Home Medications: Buprenorphine HCl/Naloxone HCl [Buprenorphin-Naloxon 8-2 mg Sl] 1.5 each SL DAILY 11/08/21 [History] Aspirin EC 81 mg [Ecotrin 81 mg] 81 mg PO DAILY 03/13/22 [History] Buspirone HCl 10 mg PO BID 03/26/22 [History] Hx Tetanus, Diphtheria Vaccination/Date Given: Yes Hx Influenza Vaccination/Date Given: Yes Hx Pneumococcal Vaccination/Date Given: No Travel Risk - Vaccine Status Have you recieved a Covid-19 vaccination: Yes 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 - Vaccination Dates Date of 2cond Vaccination (if applicable): jan 2021 - Review of Systems Constitutional: No Symptoms Eyes: No Symptoms Ears, Nose, & Throat: No Symptoms Respiratory: Dyspnea, No Dyspnea on Exertion (BLANKENSHIP), No Wheezing Cardiac: Chest Pain, Palpitations Abdominal/Gastrointestinal: No Symptoms Genitourinary Symptoms: No Symptoms Musculoskeletal: No Symptoms Skin: No Symptoms Neurological: Dizziness Psychological: Anxiety, No Alcohol Abuse, No Drug Abuse Endocrine: No Symptoms Hematologic/Lymphatic: No Symptoms Immunological/Allergic: No Symptoms All Other Systems: Reviewed and Negative - Past Medical History Pertinent Past Medical History: Yes Neurological History: No Pertinent History ENT History: No Pertinent History Cardiac History: Hypertension Respiratory History: No Pertinent History Endocrine Medical History: No Pertinent History Musculoskeletal History: No Pertinent History GI Medical History: No Pertinent History History: No Pertinent History Psycho-Social History: Anxiety, Depression Female Reproductive Disorders: No Pertinent History Other Medical History: pre-eclampsia. HTN - Past Surgical History Past Surgical History: Yes Neuro Surgical History: No Pertinent History Cardiac: No Pertinent History Gastrointestinal: No Pertinent History Musculoskeletal: No Pertinent History Female Surgical History: No Pertinent History Other Surgical History: abscess to right breast - Social History Smoking Status: Former smoker Exposure to second hand smoke: No Drug Use: none Patient Lives Alone: No Significant Family History: no pertinent family hx - Nursing Vital Signs Nursing Vital Signs: Initial Vital Signs Temperature 99.2 F 03/26/22 01:33 Pulse Rate 117 H 03/26/22 01:33 Respiratory Rate 18 03/26/22 01:33 Blood Pressure 117/76 03/26/22 01:33 O2 Sat by Pulse Oximetry 98 03/26/22 01:33 Pain Scale Pain Intensity 0 - Physical Exam General Appearance: no apparent distress Eye Exam: PERRL/EOMI Ears, Nose, Throat Exam: normal ENT inspection Neck Exam: normal inspection Respiratory Exam: normal breath sounds, lungs clear, airway intact, No respiratory distress Cardiovascular Exam: regular rate/rhythm, normal heart sounds, capillary refill <2 sec Gastrointestinal/Abdomen Exam: soft, No tenderness, No distention, No rebound Neurologic Exam: alert, oriented x 3, cooperative Skin Exam: normal color, warm, dry SpO2 Interpretation: normal SpO2: 98 O2 Delivery: Room Air - Course Nursing assessment & vital signs reviewed: Yes EKG Interpreted by Me: RATE (96), Sinus Rhythm, NORMAL AXIS, NORMAL INTERVALS, NORMAL QRS, NORMAL ST-T - Radiology Exams Chest X-ray Interpretation: Interpreted by me, Negative Ordered Tests: Active Orders 24 hr Category Date Time Status Occupational Therapist Home Based STAT Care 03/26/22 02:26 Completed EKG-ER Only STAT Care 03/26/22 02:25 Completed IV Insertion STAT Care 03/26/22 02:25 Completed Pulse Oximetry (ED) STAT Care 03/26/22 02:25 Completed CHEST 1 VIEW (PORTABLE) Stat Exams 03/26/22 02:26 Taken CBC W DIFF Stat Lab 03/26/22 03:06 Completed CMP Stat Lab 03/26/22 03:06 Completed HCG QUALITATIVE,SERUM Stat Lab 03/26/22 03:06 Completed MAGNESIUM Stat Lab 03/26/22 03:06 Completed TROPONIN Q4H Lab 03/26/22 03:06 Completed TROPONIN Q4H Lab 03/26/22 06:30 Ordered Medication Summary Discontinued Medications Generic Name Dose Route Start Last Admin Trade Name Freq PRN Reason Stop Dose Admin Sodium Chloride 1,000 mls @ 999 mls/hr 03/26/22 02:25 03/26/22 03:49 Sodium Chloride 0.9% 1000 Ml IV 03/26/22 03:25 Infused .Q1H1M STA Infusion Sodium Chloride Confirm 03/26/22 02:44 Sodium Chloride 0.9% 1000 Ml Administered 03/26/22 02:45 Dose 1,000 mls @ ud .ROUTE .STK-MED ONE Lab/Rad Data: Laboratory Result Diagrams 03/26/22 03:06 03/26/22 03:06 Laboratory Results 03/26/22 03/26/22 03/26/22 Range/Units 03:06 03:06 03:06 WBC (4.0-10.5) x10^3/uL RBC (4.1-5.4) x10^6/uL Hgb (12.0-16.0) g/dL Hct (35-47) % MCV (78-100) fL MCH (26-32) pg MCHC (32-36) g/dL RDW (11.5-14.0) % Plt Count (150-450) x10^3/uL MPV (7.5-11.0) fL Gran % (36.0-66.0) % Immature Gran % (Auto) (0.00-0.4) % Nucleat RBC Rel Count (0.00-0.1) % Eos # (Auto) (0-0.5) x10^3/uL Immature Gran # (Auto) (0.00-0.03) x10^3u/L Absolute Lymphs (auto) (1.0-4.6) x10^3/uL Absolute Monos (auto) (0.0-1.3) x10^3/uL Absolute Nucleated RBC (0.00-0.01) x10^3u/L Lymphocytes % (24.0-44.0) % Monocytes % (0.0-12.0) % Eosinophils % (0.00-5.0) % Basophils % (0.0-0.4) % Absolute Granulocytes (1.4-6.9) x10^3/uL Basophils # (0-0.4) x10^3/uL Sodium 138 (137-145) mmol/L Potassium 3.9 (3.5-5.1) mmol/L Chloride 108 H (98-107) mmol/L Carbon Dioxide 25 (22-30) mmol/L Anion Gap 9.0 (5-15) MEQ/L BUN 11 (7-17) mg/dL Creatinine 0.70 (0.52-1.04) mg/dL Estimated GFR > 60.0 ML/MIN Glucose 109 H (74-106) mg/dL Calcium 8.5 (8.4-10.2) mg/dL Magnesium 1.9 (1.6-2.3) mg/dL Total Bilirubin 0.20 (0.2-1.3) mg/dL AST 35 (14-36) U/L ALT 54 H (0-35) U/L Alkaline Phosphatase 80 (38-126) U/L Troponin I < 0.012 (0.000-0.034) ng/mL Serum Total Protein 7.0 (6.3-8.2) g/dL Albumin 4.1 (3.5-5.0) g/dL Serum , Qual NEGATIVE (Negative) 03/26/22 Range/Units 03:06 WBC 6.0 (4.0-10.5) x10^3/uL RBC 3.91 L (4.1-5.4) x10^6/uL Hgb 12.1 (12.0-16.0) g/dL Hct 36.1 (35-47) % MCV 92.3 (78-100) fL MCH 30.9 (26-32) pg MCHC 33.5 (32-36) g/dL RDW 11.8 (11.5-14.0) % Plt Count 178 (150-450) x10^3/uL MPV 11.2 H (7.5-11.0) fL Gran % 62.8 (36.0-66.0) % Immature Gran % (Auto) 0.2 (0.00-0.4) % Nucleat RBC Rel Count 0.0 (0.00-0.1) % Eos # (Auto) 0.08 (0-0.5) x10^3/uL Immature Gran # (Auto) 0.01 (0.00-0.03) x10^3u/L Absolute Lymphs (auto) 1.55 (1.0-4.6) x10^3/uL Absolute Monos (auto) 0.55 (0.0-1.3) x10^3/uL Absolute Nucleated RBC 0.00 (0.00-0.01) x10^3u/L Lymphocytes % 25.8 (24.0-44.0) % Monocytes % 9.2 (0.0-12.0) % Eosinophils % 1.3 (0.00-5.0) % Basophils % 0.7 (0.0-0.4) % Absolute Granulocytes 3.78 (1.4-6.9) x10^3/uL Basophils # 0.04 (0-0.4) x10^3/uL Sodium (137-145) mmol/L Potassium (3.5-5.1) mmol/L Chloride (98-107) mmol/L Carbon Dioxide (22-30) mmol/L Anion Gap (5-15) MEQ/L BUN (7-17) mg/dL Creatinine (0.52-1.04) mg/dL Estimated GFR ML/MIN Glucose (74-106) mg/dL Calcium (8.4-10.2) mg/dL Magnesium (1.6-2.3) mg/dL Total Bilirubin (0.2-1.3) mg/dL AST (14-36) U/L ALT (0-35) U/L Alkaline Phosphatase (38-126) U/L Troponin I (0.000-0.034) ng/mL Serum Total Protein (6.3-8.2) g/dL Albumin (3.5-5.0) g/dL Serum , Qual (Negative) - Progress Progress: improved Air Movement: good Progress Note: Symptoms resolved on re-evaluation the no medications were needed. Labs and imaging were negative for any acute findings. Encourage patient to follow up with her PCP for further management of her anxiety and panic disorder. 03/26/22 06:43 Blood Culture(s) Obtained: No Antibiotics given: No Will see patient in: office Counseled pt/family regarding: lab results, diagnosis, need for follow-up, rad results Medical Desision Making - Diagnostic Testing Diagnostic Testing: Diagnostic tests were ordered,analyzed, and reviewed by me and used in my medical decision making for this patient. Radiologic studies (if ordered) were read by me initially then discussed with the radiologist . - Risk of complications Low Risk: Low risk of morbidity from additional dx testing or treatment - Departure Departure Disposition: Home Clinical Impression: Panic attack Condition: Good Critical Care Time: No Referrals: LAMAR SANDOVAL MD [Primary Care Provider] - Follow up/PCP as directed Instructions: Panic Attack ED
[2022-03-26] MEDS ORDERED: Sodium Chloride 0.9% 1000 ML 1,000 ML IV STA (02:25)
[2022-03-26] MEDS ORDERED: Sodium Chloride 0.9% 1000 ML 1,000 ML ONE (02:44)
[2022-03-26 03:09] LABS: Absolute Neutrophil Ct (ANC) 3.78 x10^3/uL (1.4-6.9); BASOPHIL % 0.7 % (0.0-0.4); Basophil (Absolute #) 0.04 x10^3/uL (0-0.4); Eosinophil % 1.3 % (0.00-5.0); Eosinophil (Absolute #) 0.08 x10^3/uL (0-0.5); Hematocrit 36.1 % (35-47); Hemoglobin 12.1 g/dL (12.0-16.0); IMMATURE GRAN # 0.01 x10^3u/L (0.00-0.03); IMMATURE GRAN % 0.2 % (0.00-0.4); Lymphocyte (Absolute #) 1.55 x10^3/uL (1.0-4.6); Lymphocytes % 25.8 % (24.0-44.0); Mean Cell Volume 92.3 fL (78-100); Mean Corpuscular Hemoglobin 30.9 pg (26-32); Mean Corpuscular Hgb Concent. 33.5 g/dL (32-36); Mean Platelet Volume 11.2 fL (7.5-11.0); Monocyte (Absolute #) 0.55 x10^3/uL (0.0-1.3); Monocytes % 9.2 % (0.0-12.0); Neutrophil % 62.8 % (36.0-66.0); Platelet Count 178 x10^3/uL (150-450); Red Blood Count 3.91 x10^6/uL (4.1-5.4); Red Cell Distribution Width 11.8 % (11.5-14.0)
[2022-03-26 03:20] LABS: ALBUMIN 4.1 g/dL (3.5-5.0); ALKALINE PHOSPHATASE 80 U/L (38-126); BLOOD UREA NITROGEN 11 mg/dL (7-17); CHLORIDE 108 mmol/L (98-107); Calcium 8.5 mg/dL (8.4-10.2); Carbon Dioxide 25 mmol/L (22-30); EST GLOMERULAR FILTRATION RATE > 60.0 ML/MIN; Glucose 109 mg/dL (74-106); MAGNESIUM 1.9 mg/dL (1.6-2.3); Potassium 3.9 mmol/L (3.5-5.1); SGOT/AST 35 U/L (14-36); SGPT/ALT 54 U/L (0-35); SODIUM 138 mmol/L (137-145)
[2022-03-26 04:02] VITALS: BP 99/40; PULSE 76
[2022-03-26 06:45] VITALS: O2SAT 98
--- NOTE | 2022-03-26 08:28 | XRAY ---
Indication: Chest pain. Comparison: None Portable apical lordotic chest demonstrates normal heart and lungs. Bony thorax intact with incompletely visualized lumbar dextroscoliosis.
== END 2022-03-26 04:07 | disposition home or self-care (01) ==
LOC: ED 01:31
DX: F41.0 Panic disorder [episodic paroxysmal anxiety] (principal); R07.9 Chest pain, unspecified; R00.2 Palpitations; R06.02 Shortness of breath; R42 Dizziness and giddiness; I10 Essential (primary) hypertension; Z79.899 Other long term (current) drug therapy
CPT/HCPCS: 36000; 36415; 71045; 80053; 83735; 84484; 84703; 85025; 93005; 93041; 94760; 96360; 99284

== ENCOUNTER 2022-04-11 22:35 | Emergency (ER) | payer OTHER ==
--- NOTE | 2022-04-11 22:40 | ERPHSYRPT ---
- History of Present Illness Time Seen by Provider: 04/11/22 22:40 Source: patient Exam Limitations: no limitations Physician History: This is a 26-year-old female who is a patient of Dr. Sandoval and has been evaluated in this hospital 4 times in the last 5 weeks for similar symptoms that includes anxiety, panic attack, headache and is feeling overwhelmed. She really has not improved despite her primary care physician putting her on propranolol (she is not taking this because it makes her feel funny), and buspirone. Tonight, the patient states she is not suicidal but in the last 5 to 6 weeks she has at times felt that way. She is not homicidal. She has no plan. 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 She denies abdominal pain. She has not had any fevers. She has no vomiting or diarrhea symptoms. She denies illicit drug use. She is having insomnia Timing/Duration: intermittent (Over the last 4 to 6 weeks getting worse), worse Severity of Symptoms-Max: moderate Severity of Symptoms-Current: moderate Context related to: living circumstances, other (Patient is 6-month , she lost a child. She feels overwhelmed at home) Associated Symptoms: anxiety, depressed, No hallucinating, No suicidal ideation Previous symptoms: same symptoms as today, recently seen, recently treated Allergies/Adverse Reactions: orange Allergy (Verified 04/11/22 22:38) Rash Penicillins Adverse Reaction (Severe, Verified 04/11/22 22:38) tachycardia escitalopram [From Lexapro] Adverse Reaction (Verified 04/11/22 22:38) does not remember had a rx as a child nifedipine Adverse Reaction (Verified 04/11/22 22:38) Rapid Heart Beat sertraline [From Zoloft] Adverse Reaction (Verified 04/11/22 22:38) Nausea and Vomiting Home Medications: Buprenorphine HCl/Naloxone HCl [Buprenorphin-Naloxon 8-2 mg Sl] 1.5 each SL DAILY 11/08/21 [History] Aspirin EC 81 mg [Ecotrin 81 mg] 81 mg PO DAILY 03/13/22 [History] Buspirone HCl 10 mg PO BID 03/26/22 [History] Hx Tetanus, Diphtheria Vaccination/Date Given: Yes Hx Influenza Vaccination/Date Given: Yes Hx Pneumococcal Vaccination/Date Given: No Travel Risk - International Travel Have you traveled outside of the country in past 3 weeks: No - Coronavirus Screening Are you exhibiting any of the following symptoms?: No Close contact with a COVID-19 positive Pt in past 14-21 Days: No - Vaccine Status Have you recieved a Covid-19 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: 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 HTN - Past Surgical History Past Surgical History: Yes Neuro Surgical History: No Pertinent History Cardiac: No Pertinent History Respiratory: No Pertinent History Gastrointestinal: No Pertinent History Musculoskeletal: No Pertinent History Female Surgical History: No Pertinent History Other Surgical History: abscess to right breast - Social History Smoking Status: Former smoker Exposure to second hand smoke: No Drug Use: none Patient Lives Alone: No Significant Family History: no pertinent family hx - Review of Systems Constitutional: No Symptoms Eyes: No Symptoms Ears, Nose, & Throat: No Symptoms Respiratory: No Symptoms Cardiac: Palpitations Abdominal/Gastrointestinal: No Symptoms Genitourinary Symptoms: No Symptoms Musculoskeletal: No Symptoms Skin: No Symptoms Psychological: Anxiety, Depression, No Suicidal Ideations, No Homicidal Ideations, No Hallucinations Endocrine: No Symptoms Hematologic/Lymphatic: No Symptoms Immunological/Allergic: No Symptoms All Other Systems: Reviewed and Negative - Nursing Vital Signs Nursing Vital Signs: Initial Vital Signs Temperature 98.2 F 04/11/22 22:41 Pulse Rate 71 04/11/22 22:41 Respiratory Rate 18 04/11/22 22:41 Blood Pressure 134/86 04/11/22 22:41 O2 Sat by Pulse Oximetry 98 04/11/22 22:41 Pain Scale Pain Intensity 4 - Physical Exam General Appearance: no apparent distress, alert, anxiety Eyes, Ears, Nose, Throat Exam: normal ENT inspection, moist mucous membranes Neck Exam: normal inspection, non-tender, supple, full range of motion Respiratory Exam: normal breath sounds, lungs clear, airway intact, No chest tenderness, No respiratory distress Cardiovascular Exam: regular rate/rhythm, normal heart sounds, normal peripheral pulses Gastrointestinal/Abdominal Exam: soft, normal bowel sounds, No tenderness Current Suicidality: denies suicide plan Neurological Exam: alert, calm, 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, oriented x 3, anxious, depressed affect Appearance: appropriate appearance, appropriate insight, neat, no memory impairment Behavior/Eye Contact/Speech: alert & cooperative, good eye contact, normal speech Thoughts/Hallucinations: normal thought pattern, no apparent hallucination Skin Exam: normal color, warm, dry SpO2 Interpretation: normal O2 Delivery: Room Air - Course Nursing assessment & vital signs reviewed: Yes EKG Interpreted by Me: RATE (72), Sinus Rhythm, NORMAL AXIS, NORMAL INTERVALS, NORMAL QRS, NORMAL ST-T, Other (No acute ischemic changes on today's twelve-lead EKG.) Ordered Tests: Active Orders 24 hr Category Date Time Status EKG-ER Only STAT Care 04/11/22 22:52 Active ACETAMINOPHEN Stat Lab 04/11/22 22:59 Completed CBC W DIFF Stat Lab 04/11/22 22:59 Completed CMP Stat Lab 04/11/22 22:59 Completed CULTURE,URINE Stat Lab 04/11/22 22:59 Received ETHYL ALCOHOL Stat Lab 04/11/22 22:59 Completed HCG,QUALITATIVE URINE Stat Lab 04/11/22 22:59 Completed SALICYLATE Stat Lab 04/11/22 22:59 Completed UA W/RFX UR CULTURE Stat Lab 04/11/22 22:59 Completed Urine Triage Profile Stat Lab 04/11/22 22:59 Completed Medication Summary Discontinued Medications Generic Name Dose Route Start Last Admin Trade Name Julio PRN Reason Stop Dose Admin Acetaminophen 650 mg 04/11/22 23:20 04/11/22 23:21 Acetaminophen 325 Mg Tablet PO 04/11/22 23:21 650 mg STAT STA Administration Acetaminophen Confirm 04/11/22 23:21 Acetaminophen 325 Mg Tablet Administered 04/11/22 23:22 Dose 650 mg .ROUTE .STGirltank-MED ONE Lab/Rad Data: Laboratory Result Diagrams 04/11/22 22:59 04/11/22 22:59 Laboratory Results 04/11/22 04/11/22 04/11/22 Range/Units 22:59 22:59 22:59 WBC (4.0-10.5) x10^3/uL RBC (4.1-5.4) x10^6/uL Hgb (12.0-16.0) g/dL Hct (35-47) % MCV (78-100) fL MCH (26-32) pg MCHC (32-36) g/dL RDW (11.5-14.0) % Plt Count (150-450) x10^3/uL MPV (7.5-11.0) fL Gran % (36.0-66.0) % Immature Gran % (Auto) (0.00-0.4) % Nucleat RBC Rel Count (0.00-0.1) % Eos # (Auto) (0-0.5) x10^3/uL Immature Gran # (Auto) (0.00-0.03) x10^3u/L Absolute Lymphs (auto) (1.0-4.6) x10^3/uL Absolute Monos (auto) (0.0-1.3) x10^3/uL Absolute Nucleated RBC (0.00-0.01) x10^3u/L Lymphocytes % (24.0-44.0) % Monocytes % (0.0-12.0) % Eosinophils % (0.00-5.0) % Basophils % (0.0-0.4) % Absolute Granulocytes (1.4-6.9) x10^3/uL Basophils # (0-0.4) x10^3/uL Sodium (137-145) mmol/L Potassium (3.5-5.1) mmol/L Chloride (98-107) mmol/L Carbon Dioxide (22-30) mmol/L Anion Gap (5-15) MEQ/L BUN (7-17) mg/dL Creatinine (0.52-1.04) mg/dL Estimated GFR ML/MIN Glucose (74-106) mg/dL Calcium (8.4-10.2) mg/dL Total Bilirubin (0.2-1.3) mg/dL AST (14-36) U/L ALT (0-35) U/L Alkaline Phosphatase (38-126) U/L Serum Total Protein (6.3-8.2) g/dL Albumin (3.5-5.0) g/dL Urine Color (Yellow) Urine Appearance (Clear) Urine pH (4.6-8.0) Ur Specific Lancing (1.005-1.030) Urine Protein (Negative) Urine Glucose (UA) (Negative) mg/dL Urine Ketones (Negative) Urine Blood (Negative) Urine Nitrite (Negative) Urine Bilirubin (Negative) Urine Urobilinogen (0.2) mg/dL Ur Leukocyte Esterase (Negative) U Hyaline Cast (Auto) (0-2) /LPF Urine Microscopic RBC (0-5) /HPF Urine Microscopic WBC (0-5) /HPF Ur Epithelial Cells (None Seen) /HPF Urine Bacteria (None Seen) /HPF Urine Sperm (None Seen) /HPF Urine Culture Reflexed (NO) Urine HCG, Qual NEGATIVE (Negative) Salicylates (2-20) mg/dL Urine Opiates Level NEGATIVE (NEGATIVE) Ur Methadone NEGATIVE (NEGATIVE) Acetaminophen (10-30) ug/ml Urine Barbiturates NEGATIVE (NEGATIVE) Ur Phencyclidine (PCP) NEGATIVE (NEGATIVE) Urine Amphetamine NEGATIVE (NEGATIVE) U Benzodiazepine Level NEGATIVE (NEGATIVE) Urine Cocaine NEGATIVE (NEGATIVE) Urine Marijuana (THC) NEGATIVE (NEGATIVE) Ethyl Alcohol (0-10) mg/dL Influenza Type A Ag NEGATIVE (NEGATIVE) Influenza Type B Ag NEGATIVE (NEGATIVE) RSV (PCR) NEGATIVE (Negative) SARS-CoV-2 (PCR) NEGATIVE (NEGATIVE) 04/11/22 04/11/22 04/11/22 Range/Units 22:59 22:59 22:59 WBC 7.1 (4.0-10.5) x10^3/uL RBC 4.12 (4.1-5.4) x10^6/uL Hgb 12.6 (12.0-16.0) g/dL Hct 37.6 (35-47) % MCV 91.3 (78-100) fL MCH 30.6 (26-32) pg MCHC 33.5 (32-36) g/dL RDW 12.2 (11.5-14.0) % Plt Count 187 (150-450) x10^3/uL MPV 11.4 H (7.5-11.0) fL Gran % 64.9 (36.0-66.0) % Immature Gran % (Auto) 0.3 (0.00-0.4) % Nucleat RBC Rel Count 0.0 (0.00-0.1) % Eos # (Auto) 0.14 (0-0.5) x10^3/uL Immature Gran # (Auto) 0.02 (0.00-0.03) x10^3u/L Absolute Lymphs (auto) 1.78 (1.0-4.6) x10^3/uL Absolute Monos (auto) 0.50 (0.0-1.3) x10^3/uL Absolute Nucleated RBC 0.00 (0.00-0.01) x10^3u/L Lymphocytes % 25.1 (24.0-44.0) % Monocytes % 7.1 (0.0-12.0) % Eosinophils % 2.0 (0.00-5.0) % Basophils % 0.6 (0.0-0.4) % Absolute Granulocytes 4.61 (1.4-6.9) x10^3/uL Basophils # 0.04 (0-0.4) x10^3/uL Sodium 139 (137-145) mmol/L Potassium 3.8 (3.5-5.1) mmol/L Chloride 102 (98-107) mmol/L Carbon Dioxide 28 (22-30) mmol/L Anion Gap 13.5 (5-15) MEQ/L BUN 12 (7-17) mg/dL Creatinine 0.87 (0.52-1.04) mg/dL Estimated GFR > 60.0 ML/MIN Glucose 100 (74-106) mg/dL Calcium 9.1 (8.4-10.2) mg/dL Total Bilirubin 0.30 (0.2-1.3) mg/dL AST 30 (14-36) U/L ALT 37 H (0-35) U/L Alkaline Phosphatase 103 (38-126) U/L Serum Total Protein 7.6 (6.3-8.2) g/dL Albumin 4.4 (3.5-5.0) g/dL Urine Color Yellow (Yellow) Urine Appearance Cloudy A (Clear) Urine pH 7.5 (4.6-8.0) Ur Specific Lancing 1.020 (1.005-1.030) Urine Protein Trace A (Negative) Urine Glucose (UA) Negative (Negative) mg/dL Urine Ketones Negative (Negative) Urine Blood Negative (Negative) Urine Nitrite Negative (Negative) Urine Bilirubin Negative (Negative) Urine Urobilinogen 1.0 A (0.2) mg/dL Ur Leukocyte Esterase Trace A (Negative) U Hyaline Cast (Auto) NONE SEEN (0-2) /LPF Urine Microscopic RBC 0-2 (0-5) /HPF Urine Microscopic WBC 3-5 (0-5) /HPF Ur Epithelial Cells Moderate A (None Seen) /HPF Urine Bacteria None Seen (None Seen) /HPF Urine Sperm Few A (None Seen) /HPF Urine Culture Reflexed YES (NO) Urine HCG, Qual (Negative) Salicylates < 1.0 L (2-20) mg/dL Urine Opiates Level (NEGATIVE) Ur Methadone (NEGATIVE) Acetaminophen < 10 L (10-30) ug/ml Urine Barbiturates (NEGATIVE) Ur Phencyclidine (PCP) (NEGATIVE) Urine Amphetamine (NEGATIVE) U Benzodiazepine Level (NEGATIVE) Urine Cocaine (NEGATIVE) Urine Marijuana (THC) (NEGATIVE) Ethyl Alcohol < 10 (0-10) mg/dL Influenza Type A Ag (NEGATIVE) Influenza Type B Ag (NEGATIVE) RSV (PCR) (Negative) SARS-CoV-2 (PCR) (NEGATIVE) - Progress Progress: improved, re-examined Progress Note: 04/12/22 01:39 This patient's medical issue is of moderate complexity. I reviewed the patient's past medical history, past social history and past emotional history as well as took into account her history of present illness and physical exam findings. We ordered a psychiatric work-up which includes twelve-lead EKG, acetaminophen, salicylate, urinalysis, urine drug screen, CBC, CMP, alcohol level and I did a COVID screening as well. I reviewed all of the results. We sent the results to [facility] mental health providers who we use for consultation. We now await their evaluation and recommendations. We will follow their recommendations. These issues were discussed with the patient at the time of the initial medical evaluation by us in the emergency department. 04/12/22 01:51 [facility] evaluated this patient's information and condition over the phone because the telemetry monitors were not connecting and they state that she does not meet inpatient criteria. Her diagnosis is depressive disorder and anxiety disorder. A safety plan has been put in place and she will follow the safety plan. I will provide her with Ativan 0.5 mg orally to take at home since she drove herself here Counseled pt/family regarding: lab results, diagnosis, need for follow-up Medical Desision Making - Discussion of managment Care discussed with:: specialist ([facility] mental health providers) Reviewed:: Test results Agreed on:: Treatment plan, need for follow-up - Diagnostic Testing Diagnostic test were ordered, analyzed, and reviewed by me: Yes - Risk of complications Minimal Risk: Minimal risk of morbidity Low Risk: Low risk of morbidity from additional dx testing or treatment - Departure Departure Disposition: Home Clinical Impression: Depressive disorder, Anxiety disorder Condition: Stable Critical Care Time: No Referrals: LAMAR SANDOVAL MD [Primary Care Provider] - Follow up/PCP as directed Additional Instructions: Follow the safety plan that was put into place for you. Follow-up as an outpatient with your scheduled mental health provider. Take your medications as prescribed.
[2022-04-11] MEDS ORDERED: TYLENOL 325 MG PO STA (23:20)
[2022-04-11 23:21] LABS: Absolute Neutrophil Ct (ANC) 4.61 x10^3/uL (1.4-6.9); BASOPHIL % 0.6 % (0.0-0.4); Basophil (Absolute #) 0.04 x10^3/uL (0-0.4); Eosinophil (Absolute #) 0.14 x10^3/uL (0-0.5); Hematocrit 37.6 % (35-47); Hemoglobin 12.6 g/dL (12.0-16.0); IMMATURE GRAN # 0.02 x10^3u/L (0.00-0.03); IMMATURE GRAN % 0.3 % (0.00-0.4); Lymphocyte (Absolute #) 1.78 x10^3/uL (1.0-4.6); Lymphocytes % 25.1 % (24.0-44.0); Mean Cell Volume 91.3 fL (78-100); Mean Corpuscular Hemoglobin 30.6 pg (26-32); Mean Corpuscular Hgb Concent. 33.5 g/dL (32-36); Mean Platelet Volume 11.4 fL (7.5-11.0); Monocytes % 7.1 % (0.0-12.0); Neutrophil % 64.9 % (36.0-66.0); Platelet Count 187 x10^3/uL (150-450); Red Blood Count 4.12 x10^6/uL (4.1-5.4); Red Cell Distribution Width 12.2 % (11.5-14.0); White Blood Count 7.1 x10^3/uL (4.0-10.5)
[2022-04-11] MEDS ORDERED: TYLENOL 325 MG ONE (23:21)
[2022-04-11 23:29] LABS: ACETAMINOPHEN < 10 ug/ml (10-30); ALBUMIN 4.4 g/dL (3.5-5.0); ALKALINE PHOSPHATASE 103 U/L (38-126); ANION GAP 13.5 MEQ/L (5-15); BLOOD UREA NITROGEN 12 mg/dL (7-17); CHLORIDE 102 mmol/L (98-107); Calcium 9.1 mg/dL (8.4-10.2); Carbon Dioxide 28 mmol/L (22-30); Creatinine 1 0.87 mg/dL (0.52-1.04); EST GLOMERULAR FILTRATION RATE > 60.0 ML/MIN; ETHYL ALCOHOL < 10 mg/dL (0-10); Glucose 100 mg/dL (74-106); Potassium 3.8 mmol/L (3.5-5.1); SALICYLATE < 1.0 mg/dL (2-20); SGOT/AST 30 U/L (14-36); SGPT/ALT 37 U/L (0-35); SODIUM 139 mmol/L (137-145); Total Protein 7.6 g/dL (6.3-8.2)
[2022-04-11 23:41] LABS: Amphetamine,Urine NEGATIVE (NEGATIVE); Barbiturate,Urine NEGATIVE (NEGATIVE); Benzodiazepine,Urine NEGATIVE (NEGATIVE); Cocaine,Urine NEGATIVE (NEGATIVE); Methadone,Urine NEGATIVE (NEGATIVE); Opiate,Urine NEGATIVE (NEGATIVE); PCP,Urine NEGATIVE (NEGATIVE); THC,Urine NEGATIVE (NEGATIVE)
[2022-04-11 23:54] LABS: INFLUENZA A NEGATIVE (NEGATIVE); INFLUENZA B NEGATIVE (NEGATIVE); RESPIRATORY SYNCTIAL VIRUS NEGATIVE (Negative); SARS-CoV-2 Xpert Express NEGATIVE (NEGATIVE)
[2022-04-12 00:03] LABS: Appearance Cloudy (Clear); Bacteria None Seen /HPF (None Seen); Bilirubin Negative (Negative); Blood Negative (Negative); Epithelial Cells Moderate /HPF (None Seen); Glucose, Urine Negative (Negative); Hyaline Casts NONE SEEN /LPF (0-2); Ketones Negative (Negative); Leukocyte Esterase Trace (Negative); Nitrite Negative (Negative); Ph 7.5 (4.6-8.0); Protein,Urine Dip Trace (Negative); RBC 0-2 /HPF (0-5)
[2022-04-12 00:04] LABS: ADD URINE CULTURE? YES (NO); Sperm Few /HPF (None Seen)
[2022-04-12] MEDS ORDERED: Ativan 0.5 MG PO ONE (01:54)
[2022-04-12 02:03] VITALS: BP 121/66; PULSE 85; O2SAT 100
== END 2022-04-12 02:05 | disposition home or self-care (01) ==
LOC: ED 22:35
DX: F41.9 Anxiety disorder, unspecified (principal); F32.A Depression, unspecified; Z63.4 Disappearance and death of family member; R51.9 Headache, unspecified; I10 Essential (primary) hypertension; Z79.891 Long term (current) use of opiate analgesic; Z79.899 Other long term (current) drug therapy
CPT/HCPCS: 0241U; 36415; 80053; 80307; 81001; 81025; 82077; 85025; 87086; 90791; 93005; 99283; Q3014; A9270-GY

== ENCOUNTER 2022-06-18 18:54 | Emergency (ER) | payer OTHER ==
--- NOTE | 2022-06-18 19:40 | ERPHSYRPT ---
- History of Present Illness Time Seen by Provider: 06/18/22 19:37 Source: patient Exam Limitations: no limitations Patient Subjective Stated Complaint: very anxious and can't sleep Triage Nursing Assessment: pt ambulated into ER without diff, pt alert and oriented x3, cooperative. Pt is very anxious and pt stuggles with anxiety regularly. Pt was fired from her job Sunday and then she and her and [address] to [place] for a family birthday constitution party. Pt has been extremely anxious due to the firing and car ride, etc. Pt took Ativan 1mg at 1830 tonight with no relief. Pt states, "I haven't been sleeping and have only slept about 4 hours in 2 days". Physician History: Anxiety/Panic attacks Experiencing physical and emotional stress. Complains of life stressors, feels stressed about work. Excessive worrying about family issues. Symptoms have been present for > 6 months. Impairing sleep and concentration. Complains of fatigue and irritability. No CP, SOB, GI symptoms. No history of physical or emotional trauma or of a loved one. + panic attacks. Denies any use of drugs, excessive caffeine or alcohol. No thyroid disease. No Family Hx of psychiatric conditions. Denies depression. Denies suicidal ideation. Denies any manic or hypomanic episodes. Denies any visual or auditory hallucinations. Has hx of severe anxiety, recently stopped maintenance meds, but has continued taking Ativan Timing/Duration: yesterday Severity of Symptoms-Max: severe Severity of Symptoms-Current: moderate Context related to: work, lost job Suicidal thoughts: other (na) Associated Symptoms: anxiety, impaired concentration, insomnia, No suicidal i deation Previous symptoms: same symptoms as today, recently treated Allergies/Adverse Reactions: orange Allergy (Verified 06/18/22 19:18) Rash Penicillins Adverse Reaction (Severe, Verified 06/18/22 19:18) tachycardia escitalopram [From Lexapro] Adverse Reaction (Verified 06/18/22 19:18) does not remember had a rx as a child nifedipine Adverse Reaction (Verified 06/18/22 19:18) Rapid Heart Beat sertraline [From Zoloft] Adverse Reaction (Verified 06/18/22 19:18) Nausea and Vomiting Home Medications: Aspirin EC 81 mg [Ecotrin 81 mg] 81 mg PO DAILY 03/13/22 [History] Hx Tetanus, Diphtheria Vaccination/Date Given: Yes Hx Influenza Vaccination/Date Given: No Hx Pneumococcal Vaccination/Date Given: No Travel Risk - International Travel Have you traveled outside of the country in past 3 weeks: No - Coronavirus Screening Are you exhibiting any of the following symptoms?: No Close contact with a COVID-19 positive Pt in past 14-21 Days: No - Vaccine Status Have you recieved a Covid-19 vaccination: Yes 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 - Past Medical History Pertinent Past Medical History: Yes Neurological History: No Pertinent History ENT History: No Pertinent History Cardiac History: Hypertension Respiratory History: No Pertinent History Endocrine Medical History: No Pertinent History Musculoskeletal History: No Pertinent History GI Medical History: No Pertinent History History: No Pertinent History Psycho-Social History: Anxiety, Depression, Other Female Reproductive Disorders: No Pertinent History Other Medical History: pre-eclampsia. HTN, PTSD - Past Surgical History Past Surgical History: Yes Neuro Surgical History: No Pertinent History Cardiac: No Pertinent History Respiratory: No Pertinent History Gastrointestinal: No Pertinent History Musculoskeletal: No Pertinent History Female Surgical History: No Pertinent History Other Surgical History: abscess to right breast - Social History Smoking Status: Former smoker Exposure to second hand smoke: Yes Drug Use: none Patient Lives Alone: No Significant Family History: no pertinent family hx - Female History Hx Last Menstrual Period: 05/22/22 Hx Now: No - Review of Systems Constitutional: Fatigue Eyes: No Symptoms Respiratory: No Symptoms Cardiac: Palpitations Abdominal/Gastrointestinal: Nausea Genitourinary Symptoms: No Symptoms Musculoskeletal: No Symptoms Skin: No Symptoms Neurological: No Symptoms Psychological: Anxiety, Emotional Lability, Other (insomnia, stopped suboxone 3 days ago on her own), No Suicidal Ideations - Nursing Vital Signs Nursing Vital Signs: Initial Vital Signs Pulse Rate 99 H 06/18/22 19:00 Respiratory Rate 18 06/18/22 19:00 Blood Pressure 133/88 06/18/22 19:00 O2 Sat by Pulse Oximetry 99 06/18/22 19:00 Pain Scale Pain Intensity 0 - Physical Exam General Appearance: no apparent distress Neck Exam: normal inspection Respiratory Exam: normal breath sounds, lungs clear, airway intact, No respiratory distress Cardiovascular Exam: regular rate/rhythm, normal heart sounds, capillary refill <2 sec, No edema Gastrointestinal/Abdominal Exam: soft, normal bowel sounds, No tenderness Extremities Exam: normal inspection, normal range of motion Current Suicidality: denies suicide plan Neurological Exam: alert, normal mood/affect, calm, oriented x 3 Appearance: appropriate appearance, appropriate insight, neat Behavior/Eye Contact/Speech: alert & cooperative, cooperative, good eye contact, normal speech Thoughts/Hallucinations: normal thought pattern, no apparent hallucination Skin Exam: normal color, warm, dry SpO2 Interpretation: normal SpO2: 99 O2 Delivery: Room Air - Course Nursing assessment & vital signs reviewed: Yes Ordered Tests: Medication Summary Discontinued Medications Generic Name Dose Route Start Last Admin Trade Name Freq PRN Reason Stop Dose Admin Hydroxyzine HCl 50 mg 06/18/22 21:03 06/18/22 21:06 Hydroxyzine Hcl 25 Mg Tablet PO 06/18/22 21:04 50 mg STAT ONE Administration Hydroxyzine HCl Confirm 06/18/22 21:05 Hydroxyzine Hcl 25 Mg Tablet Administered 06/18/22 21:06 Dose 50 mg .ROUTE .STK-MED ONE - Progress Progress: improved Progress Note: Patient has been dealing w/ opioid withdrawals over the past few days causing worsened anxiety, PTSD and insomnia. I gave patient Hydroxyzine which helped to calm her anxiety as well as let her sleep. I will send Hydroxyzine home w/ patient. I encouraged her to reestablish w/ psychiatrist to find a regimen that will work for her and encouraged CBT. Counseled pt/family regarding: diagnosis, need for follow-up Medical Desision Making - Risk of complications The pt has a mod risk of morbidity or mortality based on: Need for prescription drug management - Departure Departure Disposition: Home Clinical Impression: Panic attack, Anxiety disorder, Insomnia, Acute opioid withdrawal Condition: Good Critical Care Time: No Referrals: LAMAR SANDOVAL MD [Primary Care Provider] - Follow up/PCP as directed Instructions: Anxiety, Adult (DC) Prescriptions: hydrOXYzine pamoate [Hydroxyzine Pamoate] 50 mg PO TID PRN #21 cap PRN Reason: Anxiety
[2022-06-18] MEDS ORDERED: ATARAX 25 MG PO ONE (21:03)
[2022-06-18] MEDS ORDERED: ATARAX 25 MG ONE (21:05)
[2022-06-18 22:10] VITALS: BP 142/72; PULSE 83
[2022-06-18 22:12] VITALS: O2SAT 99
== END 2022-06-18 22:28 | disposition home or self-care (01) ==
LOC: ED 18:54
DX: F41.9 Anxiety disorder, unspecified (principal); F41.0 Panic disorder [episodic paroxysmal anxiety]; G47.00 Insomnia, unspecified; F11.23 Opioid dependence with withdrawal; Z56.0 Unemployment, unspecified; I10 Essential (primary) hypertension
CPT/HCPCS: 99282; A9270-GY

== ENCOUNTER 2022-06-19 23:31 | Emergency (ER) | payer OTHER ==
[2022-06-19 23:42] VITALS: BP 133/104; PULSE 85; O2SAT 98
[2022-06-19] MEDS ORDERED: ATARAX 25 MG PO ONE (23:51)
[2022-06-19] MEDS ORDERED: ATARAX 25 MG ONE (23:52)
--- NOTE | 2022-06-20 00:10 | ERPHSYRPT ---
- History of Present Illness Time Seen by Provider: 06/20/22 00:04 Source: patient Exam Limitations: no limitations Patient Subjective Stated Complaint: pt states "I was here last night for anxiety/insomnia. The doctor gave me a prescription and I wasn't able to pick it up today. I need what he gave me last night." Triage Nursing Assessment: pt ambulatory to bed by self, pt alert and oriented x3, pt c/o anxiety/insomnia, pt was seen last night in ER for same complaint, pt recieved a prescription for home but was unable to bean picker today, pt resting comfortably in cot texting on cellphone throughout entire triage. Physician History: Patient is a 26-year-old female presents to emergency department for medication. Patient was in our ED yesterday. Patient presented with complaints of anxiety and insomnia. Patient was treated with hydroxyzine. Patient states she felt well and was able to sleep. Patient went to bean picker her medication prescription for hydroxyzine today. Patient unable to bean picker her medications due to an insurance glitch. Patient is here for a dose of hydroxyzine so that she can sleep tonight. She otherwise has no complaints. No chest pain no shortness of breath. No nausea vomiting or diaphoresis. Patient feels well. Patient voices no other complaints or concerns at this time. Portions of this note were created with voice recognition technology. There may be grammatical, spelling, punctuation or sound alike errors Timing/Duration: today Severity: moderate Modifying Factors: Improves With: nothing Associated Symptoms: denies symptoms Allergies/Adverse Reactions: orange Allergy (Verified 06/19/22 23:39) Rash Penicillins Adverse Reaction (Severe, Verified 06/19/22 23:39) tachycardia escitalopram [From Lexapro] Adverse Reaction (Verified 06/19/22 23:39) does not remember had a rx as a child nifedipine Adverse Reaction (Verified 06/19/22 23:39) Rapid Heart Beat sertraline [From Zoloft] Adverse Reaction (Verified 06/19/22 23:39) Nausea and Vomiting Home Medications: Aspirin EC 81 mg [Ecotrin 81 mg] 81 mg PO DAILY 03/13/22 [History] Hx Tetanus, Diphtheria Vaccination/Date Given: Yes Hx Influenza Vaccination/Date Given: No Hx Pneumococcal Vaccination/Date Given: No Travel Risk - International Travel Have you traveled outside of the country in past 3 weeks: No - Coronavirus Screening Are you exhibiting any of the following symptoms?: No Close contact with a COVID-19 positive Pt in past 14-21 Days: No - Vaccine Status Have you recieved a Covid-19 vaccination: Yes 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 - Review of Systems Constitutional: No Symptoms, No Fever, No Chills Eyes: No Symptoms Ears, Nose, & Throat: No Symptoms Respiratory: No Symptoms, No Cough, No Dyspnea Cardiac: No Symptoms, No Chest Pain, No Edema, No Syncope Abdominal/Gastrointestinal: No Symptoms, No Abdominal Pain, No Nausea, No Vomiting, No Diarrhea Genitourinary Symptoms: No Symptoms, No Dysuria Musculoskeletal: No Symptoms, No Back Pain, No Neck Pain Skin: No Symptoms, No Rash Neurological: No Symptoms, No Dizziness, No Focal Weakness, No Sensory Changes Psychological: No Symptoms Endocrine: No Symptoms Hematologic/Lymphatic: No Symptoms Immunological/Allergic: No Symptoms All Other Systems: Reviewed and Negative - Past Medical History Pertinent Past Medical History: Yes Neurological History: No Pertinent History ENT History: No Pertinent History Cardiac History: Hypertension Respiratory History: No Pertinent History Endocrine Medical History: No Pertinent History Musculoskeletal History: No Pertinent History GI Medical History: No Pertinent History History: No Pertinent History Psycho-Social History: Anxiety, Depression, Other Female Reproductive Disorders: No Pertinent History Other Medical History: pre-eclampsia. HTN, PTSD - Past Surgical History Past Surgical History: Yes Neuro Surgical History: No Pertinent History Cardiac: No Pertinent History Respiratory: No Pertinent History Gastrointestinal: No Pertinent History Musculoskeletal: No Pertinent History Female Surgical History: No Pertinent History Other Surgical History: abscess to right breast - Social History Smoking Status: Former smoker Exposure to second hand smoke: Yes Drug Use: none Patient Lives Alone: No Significant Family History: no pertinent family hx - Female History Hx Last Menstrual Period: 05/22/22 Hx Now: No - Nursing Vital Signs Nursing Vital Signs: Initial Vital Signs Temperature 98.1 F 06/19/22 23:41 Pulse Rate 85 06/19/22 23:41 Respiratory Rate 18 06/19/22 23:41 Blood Pressure 133/104 06/19/22 23:41 O2 Sat by Pulse Oximetry 98 06/19/22 23:41 Pain Scale Pain Intensity 0 - Physical Exam General Appearance: no apparent distress, alert Eye Exam: PERRL/EOMI, eyes nml inspection Ears, Nose, Throat Exam: normal ENT inspection, TMs normal, pharynx normal, moist mucous membranes Neck Exam: normal inspection, non-tender, supple, full range of motion Respiratory Exam: normal breath sounds, lungs clear, No respiratory distress Cardiovascular Exam: regular rate/rhythm, normal heart sounds, normal peripheral pulses Gastrointestinal/Abdomen Exam: soft, normal bowel sounds, No tenderness, No mass Back Exam: normal inspection, normal range of motion, No CVA tenderness, No vertebral tenderness Extremity Exam: normal inspection, normal range of motion, pelvis stable Neurologic Exam: alert, oriented x 3, cooperative, normal mood/affect, nml cerebellar function, nml station & gait, sensation nml, No motor deficits Skin Exam: normal color, warm, dry, No rash Lymphatic Exam: No adenopathy SpO2 Interpretation: normal SpO2: 98 O2 Delivery: Room Air - Course Nursing assessment & vital signs reviewed: Yes Ordered Tests: Medication Summary Discontinued Medications Generic Name Dose Route Start Last Admin Trade Name Julio PRN Reason Stop Dose Admin Hydroxyzine HCl 50 mg 06/19/22 23:51 06/19/22 23:53 Hydroxyzine Hcl 25 Mg Tablet PO 06/19/22 23:52 50 mg STAT ONE Administration Hydroxyzine HCl Confirm 06/19/22 23:52 Hydroxyzine Hcl 25 Mg Tablet Administered 06/19/22 23:53 Dose 50 mg .ROUTE .[employer]-MED ONE - Progress Progress: improved Progress Note: 26-year-old female presents to our ED for medication administration. Patient requesting medication for insomnia. Physical exam nonremarkable. Patient received oral dose of hydroxyzine as requested. She feels well. Patient requesting discharge. Complexity of problem addressed is low acute uncomplicated Complexity of data reviewed and analyzed is none. Diagnosis based on history and physical exam. Risk of complication and morbidity/mortality of patient management is low. Patient received oral dose of hydroxyzine as requested for insomnia. Patient will follow-up with her insurance company tomorrow to obtain her prescription as prescribed yesterday. Patient voices no other complaints or concerns at this time. Portions of this note were created with voice recognition technology. There may be grammatical, spelling, punctuation or sound alike errors 06/20/22 00:08 Counseled pt/family regarding: diagnosis, need for follow-up - Departure Departure Disposition: Home Clinical Impression: Insomnia, Medication administered Condition: Stable Critical Care Time: No Referrals: LAMAR SANDOVAL MD [Primary Care Provider] - Follow up/PCP as directed Additional Instructions: Discharge/Care Plan RONNI GUZMÁN was seen on 06/20/22 in the Emergency Room. The patient was counseled regarding Diagnosis,Lab results, Imaging studies, need for follow up and when to return to the Emergency Room. Prescriptions given: Discharge Note I have spoken with the patient and/or caregivers. I have explained the patient's condition, diagnosis and treatment plan based on the information available to me at this time. I have answered the patient's and/or caregiver's questions and addressed any concerns. The patient and/or caregivers have as good understanding of the patient's diagnosis, condition and treatment plan as can be expected at this point. The vital signs have been stable. The patient's condition is stable and appropriate for discharge from the emergency department. The patient will pursue further outpatient evaluation with the primary care physician or other designated or consulting physician as outlined in the discharge instructions. The patient and/or caregivers are agreeable to this plan of care and follow-up instructions have been explained in detail. The patient and/or caregivers have received these instruction. The patient/and or caregivers are aware that any significant change in condition or worsening of symptoms should prompt an immediate return to this or the closest emergency department or call 911.
== END 2022-06-20 00:17 | disposition home or self-care (01) ==
LOC: ED 23:31
DX: G47.00 Insomnia, unspecified (principal); I10 Essential (primary) hypertension
CPT/HCPCS: 99281; A9270-GY

== ENCOUNTER 2022-07-17 15:25 | Emergency (ER) | payer OTHER ==
--- NOTE | 2022-07-17 15:41 | ERPHSYRPT ---
- History of Present Illness Time Seen by Provider: 07/17/22 15:41 Source: patient, family Exam Limitations: no limitations Patient Subjective Stated Complaint: Abscess Triage Nursing Assessment: Patient ambulated back to ED and transferred self to bed. Patient A+O X3. Patient's skin pink, warm and dry. Patient complains of abscess to left arm pit that appeared 3 days ago. Patient complains of pain to left arm pit 7/10. Patient has two raised areas noted in left arm pit with redness. Physician History: This is a 26-year-old female who presents with a tender, indurated and reddened area of the left axilla has been present for the last 3 to 4 days. Yesterday she was able to express some fluid out and today it feels more hard but is filter tender. She has not been on any antibiotics. She has had no fevers. She has never had anything like this before. Patient has a history of hypertension, anxiety and PTSD. Patient has had Keflex and Rocephin in the past without any issues. Timing/Duration: day(s) (3 to 4 days) Quality: painful Severity: mild (To moderate) Location: axillary (L) Possible Causes: no cause identified Associated Symptoms: swelling/mass/lumps Allergies/Adverse Reactions: orange Allergy (Verified 07/17/22 15:29) Rash Penicillins Adverse Reaction (Severe, Verified 07/17/22 15:29) tachycardia escitalopram [From Lexapro] Adverse Reaction (Verified 07/17/22 15:29) does not remember had a rx as a child nifedipine Adverse Reaction (Verified 07/17/22 15:29) Rapid Heart Beat sertraline [From Zoloft] Adverse Reaction (Verified 07/17/22 15:29) Nausea and Vomiting Home Medications: Aspirin EC 81 mg [Ecotrin 81 mg] 81 mg PO DAILY 03/13/22 [History] Hx Tetanus, Diphtheria Vaccination/Date Given: Yes Hx Influenza Vaccination/Date Given: No Hx Pneumococcal Vaccination/Date Given: No Travel Risk - International Travel Have you traveled outside of the country in past 3 weeks: No - Coronavirus Screening Are you exhibiting any of the following symptoms?: No Close contact with a COVID-19 positive Pt in past 14-21 Days: No - Vaccine Status Have you recieved a Covid-19 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 - Review of Systems Constitutional: No Symptoms Eyes: No Symptoms Ears, Nose, & Throat: No Symptoms Respiratory: No Symptoms Cardiac: No Symptoms Abdominal/Gastrointestinal: No Symptoms Genitourinary Symptoms: No Symptoms Musculoskeletal: No Symptoms Skin: Other (Tender reddened area in the left axilla) Neurological: No Symptoms Psychological: No Symptoms Endocrine: No Symptoms Hematologic/Lymphatic: No Symptoms Immunological/Allergic: No Symptoms All Other Systems: Reviewed and Negative - Past Medical History Pertinent Past Medical History: Yes Neurological History: No Pertinent History ENT History: No Pertinent History Cardiac History: Hypertension Respiratory History: No Pertinent History Endocrine Medical History: No Pertinent History Musculoskeletal History: No Pertinent History GI Medical History: No Pertinent History History: No Pertinent History Psycho-Social History: Anxiety, Depression, Other Female Reproductive Disorders: No Pertinent History Other Medical History: pre-eclampsia. HTN, PTSD - Past Surgical History Past Surgical History: Yes Neuro Surgical History: No Pertinent History Cardiac: No Pertinent History Respiratory: No Pertinent History Gastrointestinal: No Pertinent History Musculoskeletal: No Pertinent History Female Surgical History: No Pertinent History Other Surgical History: abscess to right breast - Social History Smoking Status: Former smoker Exposure to second hand smoke: Yes Drug Use: none Patient Lives Alone: No Significant Family History: no pertinent family hx - Female History Hx Now: No - Nursing Vital Signs Nursing Vital Signs: Initial Vital Signs Temperature 98.5 F 07/17/22 15:32 Pulse Rate 85 07/17/22 15:32 Respiratory Rate 18 07/17/22 15:32 Blood Pressure 143/105 07/17/22 15:32 O2 Sat by Pulse Oximetry 98 07/17/22 15:32 Pain Scale Pain Intensity 7 - Physical Exam General Appearance: no apparent distress, alert, anxiety Eye Exam: PERRL/EOMI, eyes nml inspection Ears, Nose, Throat Exam: normal ENT inspection, moist mucous membranes Neck Exam: normal inspection, non-tender, supple, full range of motion Respiratory Exam: airway intact, No chest tenderness, No respiratory distress Gastrointestinal/Abdomen Exam: No tenderness Rectal Exam: not done Back Exam: normal inspection, normal range of motion, No CVA tenderness, No vertebral tenderness Extremity Exam: normal range of motion, pelvis stable, tenderness (Left axilla) Neurologic Exam: alert, oriented x 3, cooperative, 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 No expressible pus at this time.) Lymphatic Exam: No adenopathy SpO2 Interpretation: normal SpO2: 98 O2 Delivery: Room Air - Course Nursing assessment & vital signs reviewed: Yes Ordered Tests: Medication Summary Discontinued Medications Generic Name Dose Route Start Last Admin Trade Name Julio PRN Reason Stop Dose Admin Hydrocodone Bitart/Acetaminophen 1 tab 07/17/22 16:03 07/17/22 16:10 Hydrocodone/Apap 5/325 1 Tab Tablet PO 07/17/22 16:04 1 tab STAT ONE Administration Hydrocodone Bitart/Acetaminophen Confirm 07/17/22 16:09 Hydrocodone/Apap 5/325 1 Tab Tablet Administered 07/17/22 16:10 Dose 1 tab .ROUTE .STK-MED ONE Ceftriaxone Sodium 1,000 mg 07/17/22 15:43 07/17/22 15:49 Ceftriaxone Sodium 1000 Mg Inj Vial IM 07/17/22 15:44 1,000 mg STAT ONE Administration Ceftriaxone Sodium Confirm 07/17/22 15:48 Ceftriaxone Sodium 1000 Mg Inj Vial Administered 07/17/22 15:49 Dose 1,000 mg .ROUTE .STK-MED ONE Lidocaine HCl Confirm 07/17/22 15:48 Lidocaine Hcl 1% 20 Ml Mdv 20 Ml Ml Administered 07/17/22 15:49 Dose 3 ml .ROUTE .STK-MED ONE Trimethoprim/Sulfamethoxazole 1 tab 07/17/22 15:43 07/17/22 15:49 Smz/Tmp Ds Tablet 1 Tablet PO 07/17/22 15:44 1 tab STAT ONE Administration Trimethoprim/Sulfamethoxazole Confirm 07/17/22 15:48 Smz/Tmp Ds Tablet 1 Tablet Administered 07/17/22 15:49 Dose 1 tab PO .STK-MED ONE - Progress Progress: unchanged, pain not gone completely Progress Note: 07/17/22 16:07 This patient's medical issue is 1 of low complexity. The level of complexity and the work-up performed is based on review of the patient's past medical history, review of the patient's medication list, review of the patient's drug allergy list, history of present illness, and physical findings on examination. No laboratory studies or radiographic studies necessary. Patient has induration of the left axilla. She was able to express pus yesterday and not today. However there is redness and tenderness. We will provide her an injection of Rocephin 1 g intramuscularly and provide her with [place] 5/325 1 tablet in the emergency department and 1 Bactrim DS orally here in the emergency department. We will have her do warm compresses and attempt to express this area. If the area worsens despite antibiotic therapy, patient is to return to the emergency department for further evaluation and possible need for incision and drainage. Counseled pt/family regarding: diagnosis, need for follow-up Medical Desision Making - Independent Historian Additional History obtained from: Spouse - Diagnostic Testing Diagnostic test were ordered, analyzed, and reviewed by me: No - Risk of complications The pt has a mod risk of morbidity or mortality based on: Need for prescription drug management - Departure Departure Disposition: Home Clinical Impression: Cellulitis of left axilla, Induration of skin Condition: Stable Critical Care Time: No Referrals: LAMAR SANDOVAL MD [Primary Care Provider] - Follow up/PCP as directed Additional Instructions: Keep the skin of the left axilla clean with soap and water. Do not apply ointments lotions or creams. Attempt to express fluid from these sites. Use warm compresses to this area 2-3 times a day. Return to the emergency department if symptoms worsen despite antibiotics. Prescriptions: Hydrocodone/APAP 5/325 [[place] 5/325 mg] 1 each PO Q8H PRN PRN #8 tablet MDD 3 PRN Reason: Pain Smz/Tmp Ds Tablet [Bactrim Ds Tablet] 1 udtab PO BID #14 tablet
[2022-07-17] MEDS ORDERED: BACTRIM DS TABLET PO ONE ×2 (15:43→15:48)
[2022-07-17] MEDS ORDERED: Rocephin 1000 MG INJ IM ONE (15:43)
[2022-07-17] MEDS ORDERED: Rocephin 1000 MG INJ ONE (15:48)
[2022-07-17] MEDS ORDERED: XYLOCAINE 1% HCL 20 ML MDV ONE (15:48)
[2022-07-17] MEDS ORDERED: NORCO 5/325 MG PO ONE (16:03)
[2022-07-17] MEDS ORDERED: NORCO 5/325 MG ONE (16:09)
[2022-07-17 16:38] VITALS: BP 102/58; PULSE 80; O2SAT 97
== END 2022-07-17 16:38 | disposition home or self-care (01) ==
LOC: ED 15:25
DX: L03.112 Cellulitis of left axilla (principal); R23.4 Changes in skin texture; I10 Essential (primary) hypertension; Z79.891 Long term (current) use of opiate analgesic
CPT/HCPCS: 96372; 99283; J0696; A9270-GY

== ENCOUNTER 2022-07-25 22:03 | Emergency (ER) | payer OTHER ==
--- NOTE | 2022-07-25 22:11 | ERPHSYRPT ---
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 Patient states Klonopin works better for her than Ativan that she is received in the past. She has been seen in emergency department several times for anxiety issues. Patient is not homicidal and she is not suicidal. Patient is 10 months . She is scheduled to see her mental health provider next week. She denies illicit drug use. She denies alcohol use. Timing/Duration: day(s) (Last couple of days), worse Severity of Symptoms-Max: mild (To moderate) Severity of Symptoms-Current: mild (To moderate) Context related to: living circumstances, other Associated Symptoms: anxiety, depressed, insomnia, No hostile, No hallucinating, No suicidal ideation Previous symptoms: same symptoms as today (At times), no recent treatment Allergies/Adverse Reactions: orange Allergy (Verified 07/25/22 22:50) Rash Penicillins Adverse Reaction (Severe, Verified 07/25/22 22:50) tachycardia escitalopram [From Lexapro] Adverse Reaction (Verified 07/25/22 22:50) does not remember had a rx as a child nifedipine Adverse Reaction (Verified 07/25/22 22:50) Rapid Heart Beat sertraline [From Zoloft] Adverse Reaction (Verified 07/25/22 22:50) Nausea and Vomiting Home Medications: Aspirin EC 81 mg [Ecotrin 81 mg] 81 mg PO DAILY 03/13/22 [History] Propranolol HCl 10 mg PO DAILY 07/25/22 [History] Hx Tetanus, Diphtheria Vaccination/Date Given: Yes Hx Influenza Vaccination/Date Given: No Hx Pneumococcal Vaccination/Date Given: No Travel Risk - International Travel Have you traveled outside of the country in past 3 weeks: No - Coronavirus Screening Are you exhibiting any of the following symptoms?: No Close contact with a COVID-19 positive Pt in past 14-21 Days: No - Vaccine Status Have you recieved a Covid-19 vaccination: Yes Turn Down Man: Moderna - Vaccination Dates Date of 2cond Vaccination (if applicable): . - Past Medical History Pertinent Past Medical History: Yes Neurological History: No Pertinent History ENT History: No Pertinent History Cardiac History: Hypertension Respiratory History: No Pertinent History Endocrine Medical History: No Pertinent History Musculoskeletal History: No Pertinent History GI Medical History: No Pertinent History History: No Pertinent History Psycho-Social History: Anxiety, Depression, Other Female Reproductive Disorders: No Pertinent History Other Medical History: pre-eclampsia. HTN, PTSD - Past Surgical History Past Surgical History: Yes Neuro Surgical History: No Pertinent History Cardiac: No Pertinent History Respiratory: No Pertinent History Gastrointestinal: No Pertinent History Musculoskeletal: No Pertinent History Female Surgical History: No Pertinent History Other Surgical History: abscess to right breast - Social History Smoking Status: Former smoker Exposure to second hand smoke: Yes Drug Use: none Patient Lives Alone: No Significant Family History: no pertinent family hx - Review of Systems Constitutional: No Symptoms Eyes: No Symptoms Ears, Nose, & Throat: No Symptoms Respiratory: No Symptoms Cardiac: No Symptoms Abdominal/Gastrointestinal: No Symptoms Genitourinary Symptoms: No Symptoms Musculoskeletal: No Symptoms Skin: No Symptoms Neurological: No Symptoms Psychological: Anxiety, Depression, No Suicidal Ideations, No Homicidal Ideations, No Emotional Lability, No Hallucinations Endocrine: No Symptoms Hematologic/Lymphatic: No Symptoms Immunological/Allergic: No Symptoms All Other Systems: Reviewed and Negative - Nursing Vital Signs Nursing Vital Signs: Initial Vital Signs Temperature 98.6 F 07/25/22 22:44 Pulse Rate 85 07/25/22 22:44 Respiratory Rate 16 07/25/22 22:44 Blood Pressure 169/95 07/25/22 22:44 O2 Sat by Pulse Oximetry 100 07/25/22 22:44 Pain Scale Pain Intensity 0 - Physical Exam General Appearance: no apparent distress, alert, anxiety Eyes, Ears, Nose, Throat Exam: normal ENT inspection, moist mucous membranes Neck Exam: normal inspection, non-tender, supple, full range of motion Respiratory Exam: normal breath sounds, lungs clear, airway intact, No chest tenderness, No respiratory distress Cardiovascular Exam: regular rate/rhythm, normal heart sounds, normal peripheral pulses Gastrointestinal/Abdominal Exam: soft, normal bowel sounds, No tenderness Extremities Exam: normal inspection, normal range of motion, No evidence of injury Current Suicidality: denies suicide plan Neurological Exam: alert, 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, 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, anxious Appearance: appropriate appearance, appropriate insight, neat, no memory impairment Behavior/Eye Contact/Speech: alert & cooperative, cooperative, good eye contact, normal speech Thoughts/Hallucinations: normal thought pattern, no apparent hallucination Skin Exam: normal color, warm, dry SpO2 Interpretation: normal O2 Delivery: Room Air - Course Nursing assessment & vital signs reviewed: Yes Ordered Tests: Active Orders 24 hr Category Date Time Status EKG-ER Only STAT Care 07/25/22 23:24 Active ACETAMINOPHEN Stat Lab 07/25/22 23:35 Completed CBC W DIFF Stat Lab 07/25/22 23:35 Completed CMP Stat Lab 07/25/22 23:35 Completed ETHYL ALCOHOL Stat Lab 07/25/22 23:35 Completed HCG QUALITATIVE, SERUM Stat Lab 07/25/22 23:35 Completed SALICYLATE Stat Lab 07/25/22 23:35 Completed UA W/RFX UR CULTURE Stat Lab 07/25/22 23:24 Ordered Urine Triage Profile Stat Lab 07/25/22 23:24 Ordered Medication Summary Discontinued Medications Generic Name Dose Route Start Last Admin Trade Name Freq PRN Reason Stop Dose Admin Clonazepam 1 mg 07/26/22 00:18 Clonazepam 0.5 Mg Tablet PO 07/26/22 00:19 STAT ONE Clonazepam 0.5 mg 07/26/22 00:37 Clonazepam 0.5 Mg Tablet PO 07/26/22 00:38 STAT ONE Lab/Rad Data: Laboratory Result Diagrams 07/25/22 23:35 07/25/22 23:35 Laboratory Results 07/25/22 07/25/22 07/25/22 Range/Units 23:35 23:35 23:35 WBC 7.4 (4.0-10.5) x10^3/uL RBC 4.21 (4.1-5.4) x10^6/uL Hgb 13.0 (12.0-16.0) g/dL Hct 38.7 (35-47) % MCV 91.9 (78-100) fL MCH 30.9 (26-32) pg MCHC 33.6 (32-36) g/dL RDW 11.9 (11.5-14.0) % Plt Count 250 (150-450) x10^3/uL MPV 11.1 H (7.5-11.0) fL Gran % 66.2 H (36.0-66.0) % Immature Gran % (Auto) 0.3 (0.00-0.4) % Nucleat RBC Rel Count 0.0 (0.00-0.1) % Eos # (Auto) 0.10 (0-0.5) x10^3/uL Immature Gran # (Auto) 0.02 (0.00-0.03) x10^3u/L Absolute Lymphs (auto) 1.86 (1.0-4.6) x10^3/uL Absolute Monos (auto) 0.48 (0.0-1.3) x10^3/uL Absolute Nucleated RBC 0.00 (0.00-0.01) x10^3u/L Lymphocytes % 25.2 (24.0-44.0) % Monocytes % 6.5 (0.0-12.0) % Eosinophils % 1.4 (0.00-5.0) % Basophils % 0.4 (0.0-0.4) % Absolute Granulocytes 4.90 (1.4-6.9) x10^3/uL Basophils # 0.03 (0-0.4) x10^3/uL Sodium 138 (137-145) mmol/L Potassium 3.9 (3.5-5.1) mmol/L Chloride 102 (98-107) mmol/L Carbon Dioxide 28 (22-30) mmol/L Anion Gap 12.0 (5-15) MEQ/L BUN 9 (7-17) mg/dL Creatinine 0.63 (0.52-1.04) mg/dL Estimated GFR > 60.0 ML/MIN Glucose 99 (74-106) mg/dL Calcium 8.8 (8.4-10.2) mg/dL Total Bilirubin 0.40 (0.2-1.3) mg/dL AST 34 (14-36) U/L ALT 34 (0-35) U/L Alkaline Phosphatase 97 (38-126) U/L Serum Total Protein 8.2 (6.3-8.2) g/dL Albumin 4.6 (3.5-5.0) g/dL Serum HCG, Qual NEGATIVE (NEGATIVE) Salicylates < 1.0 L (2-20) mg/dL Acetaminophen < 10 L (10-30) ug/ml Ethyl Alcohol < 10 (0-10) mg/dL - Progress Progress: improved, re-examined Progress Note: 07/26/22 00:22 This patient's medical issue is 1 of moderate complexity. The level of complexity and the work-up performed is based on review of the patient's past medical history, history present illness, review of the patient's medication list, review of the patient's drug allergy list and physical findings on examination. The work-up in this patient includes alcohol level, urine drug screen, urinalysis, twelve-lead EKG, CBC, CMP, acetaminophen level, salicylate level. It also includes test. Patient has had recurrent anxiety and panic disorder issues. She is also had a low level of depression as well. She is not suicidal she is not homicidal. She is out of her Klonopin. She has a prescription at the pharmacy but could not retrieve it because of lack of funds and the pharmacy told her her health insurance has lapsed. She states that our facility evaluated her health insurance status this evening and it shows she has health insurance. Counseled pt/family regarding: lab results, diagnosis, need for follow-up Medical Desision Making - Diagnostic Testing Diagnostic test were ordered, analyzed, and reviewed by me: Yes - Risk of complications Minimal Risk: Minimal risk of morbidity - Departure Departure Disposition: Home Clinical Impression: Anxiety Condition: Stable Critical Care Time: No Referrals: KIKA CORDOVA ACCOUNT GENERAL MANAGER [Primary Care Provider] - Follow up/PCP as directed Additional Instructions: Take your medication as prescribed. Follow-up with your mental health provider and your pharmacy later today to obtain your prescriptions of Klonopin.
[2022-07-25 23:41] LABS: BASOPHIL % 0.4 % (0.0-0.4); Basophil (Absolute #) 0.03 x10^3/uL (0-0.4); Eosinophil % 1.4 % (0.00-5.0); Hematocrit 38.7 % (35-47); IMMATURE GRAN # 0.02 x10^3u/L (0.00-0.03); IMMATURE GRAN % 0.3 % (0.00-0.4); Lymphocyte (Absolute #) 1.86 x10^3/uL (1.0-4.6); Lymphocytes % 25.2 % (24.0-44.0); Mean Cell Volume 91.9 fL (78-100); Mean Corpuscular Hemoglobin 30.9 pg (26-32); Mean Corpuscular Hgb Concent. 33.6 g/dL (32-36); Mean Platelet Volume 11.1 fL (7.5-11.0); Monocyte (Absolute #) 0.48 x10^3/uL (0.0-1.3); Monocytes % 6.5 % (0.0-12.0); Neutrophil % 66.2 % (36.0-66.0); Platelet Count 250 x10^3/uL (150-450); Red Blood Count 4.21 x10^6/uL (4.1-5.4); Red Cell Distribution Width 11.9 % (11.5-14.0); White Blood Count 7.4 x10^3/uL (4.0-10.5)
[2022-07-25 23:53] LABS: HCG SERUM TEST NEGATIVE (NEGATIVE)
[2022-07-25 23:55] LABS: ACETAMINOPHEN < 10 ug/ml (10-30); ALBUMIN 4.6 g/dL (3.5-5.0); ALKALINE PHOSPHATASE 97 U/L (38-126); BLOOD UREA NITROGEN 9 mg/dL (7-17); CHLORIDE 102 mmol/L (98-107); Calcium 8.8 mg/dL (8.4-10.2); Carbon Dioxide 28 mmol/L (22-30); Creatinine 1 0.63 mg/dL (0.52-1.04); EST GLOMERULAR FILTRATION RATE > 60.0 ML/MIN; ETHYL ALCOHOL < 10 mg/dL (0-10); Glucose 99 mg/dL (74-106); Potassium 3.9 mmol/L (3.5-5.1); SALICYLATE < 1.0 mg/dL (2-20); SGOT/AST 34 U/L (14-36); SGPT/ALT 34 U/L (0-35); SODIUM 138 mmol/L (137-145); Total Protein 8.2 g/dL (6.3-8.2)
[2022-07-26] MEDS ORDERED: clonazePAM PO ONE ×2 (00:18→00:37)
[2022-07-26 01:23] VITALS: BP 122/76; PULSE 71; O2SAT 98
== END 2022-07-26 01:21 | disposition home or self-care (01) ==
LOC: ED 22:03
DX: F41.9 Anxiety disorder, unspecified (principal); I10 Essential (primary) hypertension; Z79.899 Other long term (current) drug therapy
CPT/HCPCS: 36415; 80053; 80143; 80179; 82077; 84703; 85025; 93005; 99283; A9270-GY

== ENCOUNTER 2022-08-02 01:51 | Emergency (ER) | payer OTHER ==
[2022-08-02 02:10] VITALS: BP 124/66; O2SAT 96
[2022-08-02] MEDS ORDERED: Vibramycin 100 MG PO ONE (02:17)
[2022-08-02] MEDS ORDERED: Vibramycin 100 MG ONE (02:19)
--- NOTE | 2022-08-02 02:31 | ERPHSYRPT ---
- History of Present Illness Time Seen by Provider: 08/02/22 02:27 Source: patient Exam Limitations: no limitations Patient Subjective Stated Complaint: Pt reports approx 3 days ago she had an abscess appear to left armpit that started draining. Was placed on bactrim on 07/17/22 for the same issue but has been taking bactrim once a day rather than twice a day due to med causing vomiting. Triage Nursing Assessment: Pt alert and oriented x3. No apparent respiratory distress. Ambulated to ED cot without difficulty. Skin warm/dry/normal for race. Cyst noted to left axillary, minimal drainage. Physician History: Patient is a 26-year-old female presents to our ED for evaluation of abscess to her left axilla. Patient was diagnosed with a left axillary abscess approximately 2 weeks ago. Patient was started on Bactrim. Patient only took Bactrim once a day instead of twice as it was upsetting her stomach. Patient states her symptoms improved however is here today because the abscess has recurred. Abscess recurred approximately 3 days ago. Patient self treated with warm pack. The abscess spontaneously drained. Patient is here because of recurrent abscess formation at the left axilla. No fever. No nausea vomiting or diaphoresis. Pain well controlled. Patient declined pain medication. Patient voices no other complaints or concerns at this time. Portions of this note were created with voice recognition technology. There may be grammatical, spelling, punctuation or sound alike errors Timing/Duration: day(s) (3) Severity: mild Modifying Factors: Improves With: other (Pain at left axilla significantly improved after spontaneous drainage of the left axillary abscess) Associated Symptoms: denies symptoms Allergies/Adverse Reactions: orange Allergy (Verified 08/02/22 02:05) Rash Penicillins Adverse Reaction (Severe, Verified 08/02/22 02:05) tachycardia escitalopram [From Lexapro] Adverse Reaction (Verified 08/02/22 02:05) does not remember had a rx as a child nifedipine Adverse Reaction (Verified 08/02/22 02:05) Rapid Heart Beat sertraline [From Zoloft] Adverse Reaction (Verified 08/02/22 02:05) Nausea and Vomiting Home Medications: Aspirin EC 81 mg [Ecotrin 81 mg] 81 mg PO DAILY 03/13/22 [History] Propranolol HCl 10 mg PO DAILY 07/25/22 [History] Hx Tetanus, Diphtheria Vaccination/Date Given: Yes Hx Influenza Vaccination/Date Given: No Hx Pneumococcal Vaccination/Date Given: No Travel Risk - International Travel Have you traveled outside of the country in past 3 weeks: No - Coronavirus Screening Are you exhibiting any of the following symptoms?: No Close contact with a COVID-19 positive Pt in past 14-21 Days: No - Vaccine Status Have you recieved a Covid-19 vaccination: Yes Delivery Clerk: Moderna - Vaccination Dates Date of 2cond Vaccination (if applicable): ? - Review of Systems Constitutional: No Symptoms, No Fever, No Chills Eyes: No Symptoms Ears, Nose, & Throat: No Symptoms Respiratory: No Symptoms, No Cough, No Dyspnea Cardiac: No Symptoms, No Chest Pain, No Edema, No Syncope Abdominal/Gastrointestinal: No Symptoms, No Abdominal Pain, No Nausea, No Vomiting, No Diarrhea Genitourinary Symptoms: No Symptoms, No Dysuria Musculoskeletal: No Symptoms, No Back Pain, No Neck Pain Skin: No Symptoms, No Rash Neurological: No Symptoms, No Dizziness, No Focal Weakness, No Sensory Changes Psychological: No Symptoms Endocrine: No Symptoms Hematologic/Lymphatic: No Symptoms Immunological/Allergic: No Symptoms All Other Systems: Reviewed and Negative - Past Medical History Pertinent Past Medical History: Yes Neurological History: No Pertinent History ENT History: No Pertinent History Cardiac History: Hypertension Respiratory History: No Pertinent History Endocrine Medical History: No Pertinent History Musculoskeletal History: No Pertinent History GI Medical History: No Pertinent History History: No Pertinent History Psycho-Social History: Anxiety, Depression, Other Female Reproductive Disorders: No Pertinent History Other Medical History: pre-eclampsia. HTN, PTSD - Past Surgical History Past Surgical History: Yes Neuro Surgical History: No Pertinent History Cardiac: No Pertinent History Respiratory: No Pertinent History Gastrointestinal: No Pertinent History Musculoskeletal: No Pertinent History Female Surgical History: No Pertinent History Other Surgical History: abscess to right breast - Social History Smoking Status: Former smoker Exposure to second hand smoke: Yes Drug Use: none Patient Lives Alone: No Significant Family History: no pertinent family hx - Female History Hx Last Menstrual Period: 07/19/22 Hx Now: No - Nursing Vital Signs Nursing Vital Signs: Initial Vital Signs Temperature 98.2 F 08/02/22 01:59 Pulse Rate 96 H 08/02/22 01:59 Respiratory Rate 17 08/02/22 01:59 Blood Pressure 124/66 08/02/22 01:59 O2 Sat by Pulse Oximetry 96 08/02/22 01:59 Pain Scale Pain Intensity 3 - Physical Exam General Appearance: no apparent distress, alert Eye Exam: PERRL/EOMI, eyes nml inspection Ears, Nose, Throat Exam: normal ENT inspection, TMs normal, pharynx normal, moist mucous membranes Neck Exam: normal inspection, non-tender, supple, full range of motion Respiratory Exam: normal breath sounds, lungs clear, airway intact, No respiratory distress Cardiovascular Exam: regular rate/rhythm, normal heart sounds, normal peripheral pulses Gastrointestinal/Abdomen Exam: soft, normal bowel sounds, No tenderness, No mass Back Exam: normal inspection, normal range of motion, No CVA tenderness, No vertebral tenderness Extremity Exam: normal inspection, normal range of motion, pelvis stable, other (Resolving left axillary abscess. No superimposed cellulitis. No lymphangitis. The involved left upper extremity is neurovascular intact distally. Compartments are soft. Cap refill less than 2 seconds.) Neurologic Exam: alert, oriented x 3, cooperative, normal mood/affect, sensation nml, No motor deficits Skin Exam: normal color, warm, dry, No rash Lymphatic Exam: No adenopathy SpO2 Interpretation: normal SpO2: 96 O2 Delivery: Room Air - Course Nursing assessment & vital signs reviewed: Yes Ordered Tests: Medication Summary Discontinued Medications Generic Name Dose Route Start Last Admin Trade Name Robelq PRN Reason Stop Dose Admin Doxycycline Hyclate 100 mg 08/02/22 02:17 08/02/22 02:19 Doxycycline Hyclate 100 Mg Tablet PO 08/02/22 02:18 100 mg STAT ONE Administration Doxycycline Hyclate Confirm 08/02/22 02:19 Doxycycline Hyclate 100 Mg Tablet Administered 08/02/22 02:20 Dose 100 mg .ROUTE .STAcesoBee-MED ONE - Progress Progress: improved Progress Note: Patient is 26-year-old female presents to our ED for evaluation of recurrent abscessed left axilla. Patient's recurrent left axillary abscess likely due to inappropriate antibiotic administration. Patient not using antibiotic as prescribed. Patient taking Bactrim daily instead of twice daily due to an upset stomach. We will switch the antibiotic to doxycycline. Hopefully she tolerates this better and takes the medication as prescribed. No indication for I&D at this time. The axillary abscess spontaneously drained yesterday and pain significantly improved. The area is slightly indurated. We will treat patient accordingly. No indication for further work-up. Patient agrees to follow-up with her primary care doctor within 48 hours for reevaluation. Complexity of problem addressed is low, acute uncomplicated Complexity of data reviewed and analyzed is none. No specialized testing ordered. Diagnosis made based on history and physical examination. Risk of complication and or risk of morbidity/mortality of patient management is moderate. Patient received an oral dose of doxycycline in our ED. A prescription for the same was forwarded to patient's pharmacy. We will discharge home. Patient agrees to follow-up with her primary care doctor within 48 hours for reevaluation. No social determinants of health present to impede follow-up. Time spent to discharge patient is approximately 15 minutes. Vital stable. Patient voices no other complaints or concerns at this time. Portions of this note were created with voice recognition technology. There may be grammatical, spelling, punctuation or sound alike errors Of note patient denies possibility of . Patient took a home test a 3 days ago which resulted as negative. 08/02/22 02:33 08/02/22 02:40 Counseled pt/family regarding: diagnosis, need for follow-up - Departure Departure Disposition: Home Clinical Impression: Axillary abscess Condition: Stable Critical Care Time: No Referrals: KIKA CORDOVA TOOLMAKER [Primary Care Provider] - Follow up/PCP as directed Additional Instructions: Discharge/Care Plan BRANDONCYNTHIAMARBINRONNI LIZZ was seen on 08/02/22 in the Emergency Room. The patient was counseled regarding Diagnosis,Lab results, Imaging studies, need for follow up and when to return to the Emergency Room. Prescriptions given: Discharge Note I have spoken with the patient and/or caregivers. I have explained the patient's condition, diagnosis and treatment plan based on the information available to me at this time. I have answered the patient's and/or caregiver's questions and addressed any concerns. The patient and/or caregivers have as good understanding of the patient's diagnosis, condition and treatment plan as can be expected at this point. The vital signs have been stable. The patient's condition is stable and appropriate for discharge from the emergency department. The patient will pursue further outpatient evaluation with the primary care physician or other designated or consulting physician as outlined in the discharge instructions. The patient and/or caregivers are agreeable to this plan of care and follow-up instructions have been explained in detail. The patient and/or caregivers have received these instruction. The patient/and or caregivers are aware that any significant change in condition or worsening of symptoms should prompt an immediate return to this or the closest emergency department or call 911. Prescriptions: Doxycycline Hyclate 100 mg [Vibramycin 100 MG] 100 mg PO BID #14 tab
[2022-08-02 02:46] VITALS: PULSE 86
== END 2022-08-02 02:48 | disposition home or self-care (01) ==
LOC: ED 01:51
DX: L02.412 Cutaneous abscess of left axilla (principal); I10 Essential (primary) hypertension; Z79.899 Other long term (current) drug therapy
CPT/HCPCS: 99281; A9270-GY

== ENCOUNTER 2022-09-20 19:02 | Emergency (ER) | payer SELFPAY | END 2022-09-20 19:39 | disposition left against medical advice (07) | LOC: ED 19:02 | DX: Z53.21 Procedure and treatment not carried out due to patient leaving prior to being seen by health care provider (principal) ==

== ENCOUNTER 2022-12-28 02:36 | Emergency (ER) | payer BC ==
[2022-12-28] MEDS ORDERED: TORAdol 30 mg Injection IM ONE ×2 (03:02→06:02)
--- NOTE | 2022-12-28 03:03 | ERPHSYRPT ---
- History of Present Illness Time Seen by Provider: 12/28/22 03:01 Source: patient Exam Limitations: no limitations Physician History: Patient is a 27-year-old female presents to our ED for evaluation of dysuria and suprapubic pain. Patient has been experiencing the symptoms for 2 weeks. Patient admits to history of UTI. Patient usually takes care of her UTIs using cranberry juice and plenty of water. She occasionally as Azo to help her symptoms. Patient's symptoms usually resolve in a week's time. However patient states her current symptoms have not resolved. RN states patient is in severe pain however patient is not in severe pain. Patient is sitting up in bed conversant well-appearing no acute distress. Patient suprapubic pain is reproducible with palpation. Pain improved with rest. Patient has STI risk factors. Patient agreed to checking GC chlamydia as well as a vaginal panel. However patient declined a pelvic exam. Patient denies vaginal discharge. No foul order. No diarrhea. No rash. No fever. No nausea no vomiting. Symptoms are mild to moderate in intensity. Patient states he is otherwise healthy. She voices no other complaints or concerns at this time. Portions of this note were created with voice recognition technology. There may be grammatical, spelling, punctuation or sound alike errors Timing/Duration: week(s) Severity: moderate (2 weeks) Associated Symptoms: denies symptoms Allergies/Adverse Reactions: orange Allergy (Verified 12/28/22 03:09) Rash Penicillins Adverse Reaction (Severe, Verified 12/28/22 03:09) tachycardia escitalopram [From Lexapro] Adverse Reaction (Verified 12/28/22 03:09) does not remember had a rx as a child nifedipine Adverse Reaction (Verified 12/28/22 03:09) Rapid Heart Beat sertraline [From Zoloft] Adverse Reaction (Verified 12/28/22 03:09) Nausea and Vomiting Home Medications: Aspirin EC 81 mg [Ecotrin 81 mg] 81 mg PO DAILY 03/13/22 [History] clonazePAM [Klonopin] 0.5 mg PO DAILY PRN PRN 12/28/22 [History] Hx Tetanus, Diphtheria Vaccination/Date Given: Yes Hx Influenza Vaccination/Date Given: No Hx Pneumococcal Vaccination/Date Given: No Travel Risk - Vaccine Status Have you recieved a Covid-19 vaccination: Yes Network Support Analyst: Moderna - Vaccination Dates Date of 2cond Vaccination (if applicable): ? - Review of Systems Constitutional: No Symptoms, No Fever, No Chills Eyes: No Symptoms Ears, Nose, & Throat: No Symptoms Respiratory: No Symptoms, No Cough, No Dyspnea Cardiac: No Symptoms, No Chest Pain, No Edema, No Syncope Abdominal/Gastrointestinal: No Symptoms, No Abdominal Pain, No Nausea, No Vomiting, No Diarrhea Genitourinary Symptoms: No Symptoms, No Dysuria Musculoskeletal: No Symptoms, No Back Pain, No Neck Pain Skin: No Symptoms, No Rash Neurological: No Symptoms, No Dizziness, No Focal Weakness, No Sensory Changes Psychological: No Symptoms Endocrine: No Symptoms Hematologic/Lymphatic: No Symptoms Immunological/Allergic: No Symptoms All Other Systems: Reviewed and Negative - Past Medical History Pertinent Past Medical History: Yes Neurological History: No Pertinent History ENT History: No Pertinent History Cardiac History: Hypertension Respiratory History: No Pertinent History Endocrine Medical History: No Pertinent History Musculoskeletal History: No Pertinent History GI Medical History: No Pertinent History History: No Pertinent History Psycho-Social History: Anxiety, Depression, Other Female Reproductive Disorders: No Pertinent History Other Medical History: pre-eclampsia. HTN, PTSD - Past Surgical History Past Surgical History: Yes Neuro Surgical History: No Pertinent History Cardiac: No Pertinent History Respiratory: No Pertinent History Gastrointestinal: No Pertinent History Musculoskeletal: No Pertinent History Female Surgical History: No Pertinent History Other Surgical History: abscess to right breast - Social History Smoking Status: Former smoker Exposure to second hand smoke: Yes Drug Use: none Patient Lives Alone: No Significant Family History: no pertinent family hx - Nursing Vital Signs Nursing Vital Signs: Initial Vital Signs Temperature 98.3 F 12/28/22 02:37 Pulse Rate 83 12/28/22 02:37 Respiratory Rate 18 12/28/22 02:37 Blood Pressure 141/84 12/28/22 02:37 O2 Sat by Pulse Oximetry 100 12/28/22 02:37 Pain Scale Pain Intensity 6 - Physical Exam General Appearance: no apparent distress, alert Eye Exam: PERRL/EOMI, eyes nml inspection Ears, Nose, Throat Exam: normal ENT inspection, moist mucous membranes Neck Exam: normal inspection, non-tender, supple, full range of motion Respiratory Exam: normal breath sounds, lungs clear, airway intact, No respiratory distress Cardiovascular Exam: regular rate/rhythm, normal heart sounds, normal peripheral pulses Gastrointestinal/Abdomen Exam: soft, normal bowel sounds, other (mild suprapubic tenderness. No pain at McBurney's point/right lower quadrant. No epigastric or right upper quadrant pain/Leija sign.), No tenderness (No abdominal pain or tenderness), No mass Pelvic Exam: other (Patient declined pelvic exam. Risks and benefits of pelvic exam vs refusing pelvic exam discussed. ) Back Exam: normal inspection, normal range of motion, No CVA tenderness, No vertebral tenderness Extremity Exam: normal inspection, normal range of motion, pelvis stable Neurologic Exam: alert, oriented x 3, cooperative, normal mood/affect, sensation nml, No motor deficits Skin Exam: normal color, warm, dry, No rash Lymphatic Exam: No adenopathy SpO2 Interpretation: normal SpO2: 98 O2 Delivery: Room Air - Course Nursing assessment & vital signs reviewed: Yes Ordered Tests: Active Orders 24 hr Category Date Time Status CULTURE,URINE Stat Lab 12/28/22 03:00 Received HCG QUALITATIVE, URINE Stat Lab 12/28/22 03:00 Completed UA W/RFX UR CULTURE Stat Lab 12/28/22 03:00 Completed Medication Summary Discontinued Medications Generic Name Dose Route Start Last Admin Trade Name Freq PRN Reason Stop Dose Admin Hydrocodone Bitart/Acetaminophen 1 tab 12/28/22 06:03 12/28/22 06:05 Hydrocodone/Apap 5/325 1 Tab Tablet PO 12/28/22 06:04 1 tab STAT ONE Administration Hydrocodone Bitart/Acetaminophen Confirm 12/28/22 06:04 Hydrocodone/Apap 5/325 1 Tab Tablet Administered 12/28/22 06:05 Dose 1 tab .ROUTE .STK-MED ONE Ketorolac Tromethamine 30 mg 12/28/22 03:02 12/28/22 03:31 Ketorolac Tromethamine 30 Mg/Ml Inj IM 12/28/22 03:03 30 mg STAT ONE Administration Ketorolac Tromethamine Confirm 12/28/22 03:29 Ketorolac Tromethamine 30 Mg/Ml Inj Administered 12/28/22 03:30 Dose 30 mg .ROUTE .STK-MED ONE Ketorolac Tromethamine 30 mg 12/28/22 06:02 12/28/22 06:07 Ketorolac Tromethamine 30 Mg/Ml Inj IM 12/28/22 06:03 Not Given STAT ONE Metronidazole 500 mg 12/28/22 05:38 12/28/22 05:40 Metronidazole 500 Mg Tablet PO 12/28/22 05:39 500 mg STAT ONE Administration Metronidazole Confirm 12/28/22 05:39 Metronidazole 500 Mg Tablet Administered 12/28/22 05:40 Dose 500 mg .ROUTE .STK-MED ONE Trimethoprim/Sulfamethoxazole 1 tab 12/28/22 05:39 12/28/22 05:40 Smz/Tmp Ds Tablet 1 Tablet PO 12/28/22 05:40 1 tab STAT STA Administration Trimethoprim/Sulfamethoxazole Confirm 12/28/22 05:39 Smz/Tmp Ds Tablet 1 Tablet Administered 12/28/22 05:40 Dose 1 tab PO .STK-MED ONE Lab/Rad Data: Laboratory Results 12/28/22 12/28/22 12/28/22 Range/Units 03:30 03:00 03:00 Urine Color (Yellow) Urine Appearance (Clear) Urine pH (4.6-8.0) Ur Specific [place] (1.005-1.030) Urine Protein (Negative) Urine Glucose (UA) (Negative) mg/dL Urine Ketones (Negative) Urine Blood (Negative) Urine Nitrite (Negative) Urine Bilirubin (Negative) Urine Urobilinogen (0.2) mg/dL Ur Leukocyte Esterase (Negative) U Hyaline Cast (Auto) (0-2) /LPF Urine Microscopic RBC (0-5) /HPF Urine Microscopic WBC (0-5) /HPF Ur Epithelial Cells (None Seen) /HPF Urine Bacteria (None Seen) /HPF Urine Culture Reflexed (NO) Urine HCG, Qual NEGATIVE (NEGATIVE) Vaginal Lo Group NOT DETECTED (NEGATIVE) Lo species NOT DETECTED (NEGATIVE) Chlamydia DNA Probe NOT DETECTED (NEGATIVE) N.gonorrhoeae DNA Probe NOT DETECTED (NEGATIVE) T. vaginalis (PCR) NOT DETECTED (NEGATIVE) Bact vaginosis (PCR) POSITIVE A (NEGATIVE) 12/28/22 Range/Units 03:00 Urine Color Yellow (Yellow) Urine Appearance Clear (Clear) Urine pH 7.0 (4.6-8.0) Ur Specific [place] >=1.030 A (1.005-1.030) Urine Protein Negative (Negative) Urine Glucose (UA) Negative (Negative) mg/dL Urine Ketones Negative (Negative) Urine Blood Negative (Negative) Urine Nitrite Negative (Negative) Urine Bilirubin Negative (Negative) Urine Urobilinogen 2.0 A (0.2) mg/dL Ur Leukocyte Esterase Small A (Negative) U Hyaline Cast (Auto) NONE SEEN (0-2) /LPF Urine Microscopic RBC 0-2 (0-5) /HPF Urine Microscopic WBC 21-50 A (0-5) /HPF Ur Epithelial Cells None Seen (None Seen) /HPF Urine Bacteria None Seen (None Seen) /HPF Urine Culture Reflexed YES (NO) Urine HCG, Qual (NEGATIVE) Vaginal Lo Group (NEGATIVE) Lo species (NEGATIVE) Chlamydia DNA Probe (NEGATIVE) N.gonorrhoeae DNA Probe (NEGATIVE) T. vaginalis (PCR) (NEGATIVE) Bact vaginosis (PCR) (NEGATIVE) - Progress Progress: improved Progress Note: Patient is a 27-year-old female presents to our ED for evaluation of dysuria. Patient states her pain is in her urethra. Patient feels a burning sensation. No abdominal pain. Physical exam limited as patient declined a pelvic exam. However we obtain a GC chlamydia in the urine. Patient self swab for a vaginal panel. Work-up reveals BV and urinary tract infection. Patient received Flagyl and Bactrim in our ED. Patient discharged home with a prescription for Flagyl and Macrobid. Long-term use of Bactrim interacted with the home medication. Toradol administered for pain control. Patient still had some discomfort at time of discharge. Patient given a [place] pill. Patient reassessed at time of discharge. Patient states that she is experiencing some burning sensation in her urethra that has not completely resolved however she had no abdominal pain. Portions of this note were created with voice recognition technology. There may be grammatical, spelling, punctuation or sound alike errors Complexity of problems addressed is moderate acute complicated No critical care time Complexity of data reviewed and analyzed is moderate. Test ordered test reviewed. Results analyzed and correlated clinically with history and physical exam. Patient finding of urinary tract infection correlates clinically with patient's complaint/dysuria at the level of the urethra. Risk of complication and or risk of morbidity/mortality of patient management is moderate. Patient received a prescription for both Flagyl to treat BV and Macrobid to treat her urinary tract infection. [id number] analgesics as needed. Patient requesting discharge as her ride is waiting for her. Vital stable. Time spent to discharge patient approximately 15 minutes. Plan of care established for shared decision making. No social determinants of health present impede follow-up. Portions of this note were created with voice recognition technology. There may be grammatical, spelling, punctuation or sound alike errors 12/28/22 06:16 Counseled pt/family regarding: lab results, diagnosis, need for follow-up - Departure Departure Disposition: Home Clinical Impression: UTI (urinary tract infection), Dysuria Condition: Stable Critical Care Time: No Referrals: DOCTOR,NO FAMILY [Primary Care Provider] - Follow up/PCP as directed LAMAR SANDOVAL MD [ACTIVE STAFF] - Follow up/PCP as directed Instructions: Urinary Tract Infection, Adult (DC) Additional Instructions: Discharge/Care Plan BRANDONMICAELARONNI LIZZ was seen on 12/28/22 in the Emergency Room. The patient was counseled regarding Diagnosis,Lab results, Imaging studies, need for follow up and when to return to the Emergency Room. Prescriptions given: Discharge Note I have spoken with the patient and/or caregivers. I have explained the patient's condition, diagnosis and treatment plan based on the information available to me at this time. I have answered the patient's and/or caregiver's questions and addressed any concerns. The patient and/or caregivers have as good understanding of the patient's diagnosis, condition and treatment plan as can be expected at this point. The vital signs have been stable. The patient's condition is stable and appropriate for discharge from the emergency department. The patient will pursue further outpatient evaluation with the primary care ph ysician or other designated or consulting physician as outlined in the discharge instructions. The patient and/or caregivers are agreeable to this plan of care and follow-up instructions have been explained in detail. The patient and/or caregivers have received these instruction. The patient/and or caregivers are aware that any significant change in condition or worsening of symptoms should prompt an immediate return to this or the closest emergency department or call 911. Prescriptions: Metronidazole 500 mg [Flagyl 500 MG] 500 mg PO BID 7 Days #14 tablet Nitrofurantoin Macro 100 mg [Macrobid 100MG Capsule] 100 mg PO BID 7 Days #14 cap
[2022-12-28 03:06] VITALS: TEMP 98.3
[2022-12-28 03:29] LABS: HCG URINE TEST NEGATIVE (NEGATIVE)
[2022-12-28] MEDS ORDERED: TORAdol 30 mg Injection ONE (03:29)
[2022-12-28 03:34] LABS: Appearance Clear (Clear); Bacteria None Seen /HPF (None Seen); Bilirubin Negative (Negative); Blood Negative (Negative); Epithelial Cells None Seen /HPF (None Seen); Glucose, Urine Negative (Negative); Hyaline Casts NONE SEEN /LPF (0-2); Ketones Negative (Negative); Leukocyte Esterase Small (Negative); Nitrite Negative (Negative); Protein,Urine Dip Negative (Negative); RBC 0-2 /HPF (0-5); Specific Gravity >=1.030 (1.005-1.030); WBC 21-50 /HPF (0-5)
[2022-12-28 03:51] LABS: ADD URINE CULTURE? YES (NO)
[2022-12-28 04:56] LABS: CHLAMYDIA DNA NOT DETECTED (NEGATIVE); GC DNA Probe NOT DETECTED (NEGATIVE)
[2022-12-28 05:02] LABS: Candida Group NOT DETECTED (NEGATIVE)
[2022-12-28 05:37] VITALS: RESP 17
[2022-12-28] MEDS ORDERED: Flagyl 500 MG PO ONE (05:38)
[2022-12-28] MEDS ORDERED: BACTRIM DS TABLET PO STA (05:39)
[2022-12-28] MEDS ORDERED: BACTRIM DS TABLET PO ONE (05:39)
[2022-12-28] MEDS ORDERED: Flagyl 500 MG ONE (05:39)
[2022-12-28] MEDS ORDERED: NORCO 5/325 MG PO ONE (06:03)
[2022-12-28] MEDS ORDERED: NORCO 5/325 MG ONE (06:04)
[2022-12-28 06:08] VITALS: O2SAT 98
[2022-12-28 06:09] VITALS: BP 126/82; PULSE 78
== END 2022-12-28 06:20 | disposition home or self-care (01) ==
LOC: ED 02:36
DX: N39.0 Urinary tract infection, site not specified (principal); R30.0 Dysuria; R10.2 Pelvic and perineal pain; I10 Essential (primary) hypertension; Z79.899 Other long term (current) drug therapy
CPT/HCPCS: 81001; 81025; 87086; 87481; 87491; 87591; 87661; 87801; 96372; 99283; J1885; A9270-GY

== ENCOUNTER 2023-04-02 12:46 | Emergency (ER) | payer BC ==
--- NOTE | 2023-04-02 12:54 | ERPHSYRPT ---
- History of Present Illness Time Seen by Provider: 04/02/23 12:54 Source: patient Exam Limitations: no limitations Physician History: This is a 27-year-old -[place] female who presents with approximately 1 week history of cough that is nonproductive and forceful, fever (subjective) headache and body aches. She is a daily smoker cigarettes and has been smoking for 6 months. She does complain of some chest pain only with coughing. She has nasal and chest congestion. Timing/Duration: week(s), worse Cough Quality/Degree: moderate, dry cough Possible Cause: no prior episodes Modifying Factors: Improves With: coughing Associated Symptoms: chest pain/soreness, cough (Coughing only), headache, muscle aches, nasal congestion, sore throat Allergies/Adverse Reactions: orange Allergy (Verified 04/02/23 12:50) Rash Penicillins Adverse Reaction (Severe, Verified 04/02/23 12:50) tachycardia escitalopram [From Lexapro] Adverse Reaction (Verified 04/02/23 12:50) does not remember had a rx as a child nifedipine Adverse Reaction (Verified 04/02/23 12:50) Rapid Heart Beat sertraline [From Zoloft] Adverse Reaction (Verified 04/02/23 12:50) Nausea and Vomiting Home Medications: Aspirin EC 81 mg [Ecotrin 81 mg] 81 mg PO DAILY 03/13/22 [History] ALPRAZolam 1 MG [Xanax 1 mg] 1 tab PO TID PRN 04/02/23 [History] ARIPiprazole [Aripiprazole] 1 tab PO DAILY 04/02/23 [History] Hx Tetanus, Diphtheria Vaccination/Date Given: Yes Hx Influenza Vaccination/Date Given: No Hx Pneumococcal Vaccination/Date Given: No Travel Risk - Vaccine Status Have you recieved a Covid-19 vaccination: Yes Research Asst: Moderna - Vaccination Dates Date of 2cond Vaccination (if applicable): ? - Review of Systems Constitutional: Fever Eyes: No Symptoms Ears, Nose, & Throat: Nose Congestion Respiratory: Cough Cardiac: No Symptoms Abdominal/Gastrointestinal: No Symptoms Genitourinary Symptoms: No Symptoms Musculoskeletal: Arthralgias, Myalgias Neurological: No Symptoms Psychological: No Symptoms Endocrine: No Symptoms Hematologic/Lymphatic: No Symptoms Immunological/Allergic: No Symptoms All Other Systems: Reviewed and Negative - Past Medical History Pertinent Past Medical History: Yes Neurological History: No Pertinent History ENT History: No Pertinent History Cardiac History: Hypertension Respiratory History: No Pertinent History Endocrine Medical History: No Pertinent History Musculoskeletal History: No Pertinent History GI Medical History: No Pertinent History History: No Pertinent History Psycho-Social History: Anxiety, Depression, Other Female Reproductive Disorders: No Pertinent History Other Medical History: pre-eclampsia. HTN, PTSD - Past Surgical History Past Surgical History: Yes Neuro Surgical History: No Pertinent History Cardiac: No Pertinent History Respiratory: No Pertinent History Gastrointestinal: No Pertinent History Genitourinary: No Pertinent History Musculoskeletal: No Pertinent History Female Surgical History: No Pertinent History Other Surgical History: abscess to right breast - Social History Smoking Status: Former smoker How long have you smoked: 7 Exposure to second hand smoke: Yes Drug Use: none Patient Lives Alone: No Significant Family History: no pertinent family hx - Nursing Vital Signs Nursing Vital Signs: Initial Vital Signs Temperature 100.6 F 04/02/23 12:51 Pulse Rate 110 H 04/02/23 12:51 Blood Pressure 155/108 04/02/23 12:51 O2 Sat by Pulse Oximetry 95 04/02/23 12:51 Pain Scale Pain Intensity 7 - Physical Exam General Appearance: no apparent distress, alert, anxiety Eye Exam: PERRL/EOMI, eyes nml inspection Ears, Nose, Throat Exam: normal ENT inspection, moist mucous membranes Neck Exam: normal inspection, non-tender, supple, full range of motion Respiratory Exam: normal breath sounds, lungs clear, airway intact, No chest tenderness, No respiratory distress Cardiovascular Exam: tachycardia Gastrointestinal/Abdomen Exam: soft, normal bowel sounds, No tenderness Pelvic Exam: not done Rectal Exam: not done Back Exam: normal inspection, normal range of motion, No CVA tenderness, No vertebral tenderness Extremity Exam: normal inspection, normal range of motion, pelvis stable Neurologic Exam: alert, oriented x 3, cooperative, community relations specialist II-XII nml as tested, normal mood/affect, nml cerebellar function, nml station & gait, sensation nml Skin Exam: normal color, warm, dry Lymphatic Exam: No adenopathy SpO2 Interpretation: normal O2 Delivery: Room Air - Course Nursing assessment & vital signs reviewed: Yes EKG Interpreted by Me: RATE (111), Sinus Tach, NORMAL AXIS, NORMAL INTERVALS, NORMAL QRS, NORMAL ST-T, Other (No acute ischemia on today's twelve-lead EKG.) Ordered Tests: Active Orders 24 hr Category Date Time Status CHEST 1 VIEW (PORTABLE) Stat Exams 04/02/23 12:58 Completed BMP Stat Lab 04/02/23 13:15 Completed CBC W DIFF Stat Lab 04/02/23 13:15 Received MONO SCREEN Stat Lab 04/02/23 13:15 Completed TROPONIN Q4H Lab 04/02/23 13:15 Completed TROPONIN Q4H Lab 04/02/23 17:00 Ordered TROPONIN Q4H Lab 04/02/23 21:00 Ordered Medication Summary Discontinued Medications Generic Name Dose Route Start Last Admin Trade Name Freq PRN Reason Stop Dose Admin Hydrocodone Bitart/Acetaminophen 10 ml 04/02/23 14:07 Hydrocodone/Acetaminophen 5 Ml Udcup PO 04/02/23 14:08 STAT STA Methylprednisolone Sodium 0 mg 04/02/23 14:06 Succinate 125 mg/ Sterile IM 04/02/23 14:07 Water 2 ml STAT ONE Potassium Chloride 20 meq 04/02/23 14:06 Potassium Chloride Tab 10 Meq Tab PO 04/02/23 14:07 STAT ONE Lab/Rad Data: Laboratory Result Diagrams 04/02/23 13:15 Laboratory Results 04/02/23 04/02/23 04/02/23 Range/Units 13:15 13:15 13:15 Sodium (137-145) mmol/L Potassium (3.5-5.1) mmol/L Chloride (98-107) mmol/L Carbon Dioxide (22-30) mmol/L Anion Gap (5-15) MEQ/L BUN (7-17) mg/dL Creatinine (0.52-1.04) mg/dL Estimated GFR ML/MIN Glucose (74-106) mg/dL Calcium (8.4-10.2) mg/dL Troponin I < 0.012 (0.000-0.034) ng/mL Monoscreen NEGATIVE (NEGATIVE) Influenza Type A Ag NEGATIVE (NEGATIVE) Influenza Type B Ag POSITIVE A (NEGATIVE) RSV (PCR) NEGATIVE (NEGATIVE) SARS-CoV-2 (PCR) NEGATIVE (NEGATIVE) Group A Strep Antibody (NEGATIVE) 04/02/23 04/02/23 Range/Units 13:15 13:00 Sodium 137 (137-145) mmol/L Potassium 3.3 L (3.5-5.1) mmol/L Chloride 106 (98-107) mmol/L Carbon Dioxide 24 (22-30) mmol/L Anion Gap 10.5 (5-15) MEQ/L BUN 5 L (7-17) mg/dL Creatinine 0.63 (0.52-1.04) mg/dL Estimated GFR 124.6 ML/MIN Glucose 112 H (74-106) mg/dL Calcium 8.4 (8.4-10.2) mg/dL Troponin I (0.000-0.034) ng/mL Monoscreen (NEGATIVE) Influenza Type A Ag (NEGATIVE) Influenza Type B Ag (NEGATIVE) RSV (PCR) (NEGATIVE) SARS-CoV-2 (PCR) (NEGATIVE) Group A Strep Antibody NOT DETECTED (NEGATIVE) - Progress Progress: improved, re-examined Air Movement: good Progress Note: 04/02/23 14:02 Patient's medical issue is 1 of moderate complexity. Level of complexity in the workup performed is based on review of the patient's past medical history, review the patient's medication list, review of the patient's drug allergy list, history present illness and physical findings on examination. This patient's workup includes twelve-lead EKG, troponin level, CBC, BMP, troponin level, COVID swabs, group A strep and mono's test. Chest x-ray was interpreted by the radiologist and there is no evidence of any acute cardiopulmonary process. I reviewed this impression. 04/02/23 14:09 I interpreted the patient's laboratory data results. Patient has mildly low potassium at 3.3. Will provide her with 20 mill equivalents of potassium orally here in the emergency department. I think this was all she will need regarding the potassium supplementation. In addition, patient tested positive for influenza B. She is too far out to gain any benefit from Tamiflu. I will send a prescription remotely to her pharmacy to include prednisone and an utero inhaler as well as hydrocodone elixir. Blood Culture(s) Obtained: No Antibiotics given: No Counseled pt/family regarding: lab results, diagnosis, need for follow-up, rad results Medical Desision Making - Diagnostic Testing Diagnostic test were ordered, analyzed, and reviewed by me: Yes Radiological Interpretation: Reviewed by me, Teleradiologist Report - Risk of complications The pt has a mod risk of morbidity or mortality based on: Need for prescription drug management - Departure Departure Disposition: Home Clinical Impression: Hypokalemia, Influenza B Condition: Stable Critical Care Time: No Referrals: DOCTOR,NO FAMILY [Primary Care Provider] - Follow up/PCP as directed Additional Instructions: Drink plenty of fluids. Avoid any exposure to smoke of any kind. Take your medication as prescribed. Call your primary care provider today, 04/02/2023, to make arranges for follow-up appointment for further evaluation management. Prescriptions: Prednisone 10 mg [Deltasone 10 mg] 10 mg PO TID #12 tablet Hydrocodone/Acetaminophen [Hydrocodone-Acetamn 7.5-325/15] 10 ml PO Q8H PRN #120 ml MDD 30 ml PRN Reason: Cough Albuterol 8 gm Mdi Hfa [Ventolin Hfa MDI] 8 gm IH Q4H #1 unit
[2023-04-02 13:08] VITALS: TEMP 100.6
--- NOTE | 2023-04-02 13:15 | XRAY ---
Indication: Cough and short of breath. Comparison: March 26, 2022 Portable apical lordotic chest again demonstrates normal heart and lungs. Bony thorax intact again with mild levoscoliosis. No new/acute findings.
[2023-04-02 13:29] LABS: Absolute Neutrophil Ct (ANC) 3.25 x10^3/uL (1.4-6.9); BASOPHIL % 0.5 % (0.0-0.4); Basophil (Absolute #) 0.02 x10^3/uL (0-0.4); Eosinophil % 0.9 % (0.00-5.0); Eosinophil (Absolute #) 0.04 x10^3/uL (0-0.5); Hematocrit 37.5 % (35-47); Hemoglobin 12.6 g/dL (12.0-16.0); IMMATURE GRAN # 0.01 x10^3u/L (0.00-0.03); IMMATURE GRAN % 0.2 % (0.00-0.4); Lymphocytes % 15.8 % (24.0-44.0); Mean Cell Volume 92.6 fL (78-100); Mean Corpuscular Hemoglobin 31.1 pg (26-32); Mean Corpuscular Hgb Concent. 33.6 g/dL (32-36); Mean Platelet Volume 11.9 fL (7.5-11.0); Neutrophil % 73.6 % (36.0-66.0); Platelet Count 129 x10^3/uL (150-450); Red Blood Count 4.05 x10^6/uL (4.1-5.4); Red Cell Distribution Width 11.9 % (11.5-14.0); White Blood Count 4.4 x10^3/uL (4.0-10.5)
[2023-04-02 13:36] LABS: ANION GAP 10.5 MEQ/L (5-15); Calcium 8.4 mg/dL (8.4-10.2); Creatinine 1 0.63 mg/dL (0.52-1.04); EST GLOMERULAR FILTRATION RATE 124.6 ML/MIN; Potassium 3.3 mmol/L (3.5-5.1)
[2023-04-02 13:58] LABS: INFLUENZA A NEGATIVE (NEGATIVE); RESPIRATORY SYNCTIAL VIRUS NEGATIVE (NEGATIVE); SARS-CoV-2 Xpert Express NEGATIVE (NEGATIVE)
[2023-04-02 14:07] LABS: INFLUENZA B POSITIVE (NEGATIVE)
[2023-04-02] MEDS ORDERED: Sterile H2O 10 ml IJ ONE (14:30)
[2023-04-02] MEDS ORDERED: HYDROCODONE-ACETAMIN 2.5-108/5 ML SOLUTION ONE (14:31)
[2023-04-02] MEDS ORDERED: Klor Con ONE (14:31)
[2023-04-02] MEDS ORDERED: solu-MEDROL ONE (14:31)
[2023-04-02] MEDS: Klor Con PO ONE (14:32)
[2023-04-02] MEDS: solu-MEDROL 125 MG, Sterile H2O 10 ml 2 ML IM ONE (14:33)
[2023-04-02] MEDS: HYDROCODONE-ACETAMIN 2.5-108/5 ML SOLUTION PO STA (14:33)
[2023-04-02 14:52] VITALS: BP 121/75; PULSE 90; RESP 16; O2SAT 94
[2023-04-02 16:00] LABS: Slide Review 1 YES
== END 2023-04-02 14:53 | disposition home or self-care (01) ==
LOC: ED 12:46
DX: J10.1 Influenza due to other identified influenza virus with other respiratory manifestations (principal); E87.6 Hypokalemia; R05.1 Acute cough; R51.9 Headache, unspecified; M79.10 Myalgia, unspecified site; R09.81 Nasal congestion; I10 Essential (primary) hypertension; Z79.52 Long term (current) use of systemic steroids; Z79.891 Long term (current) use of opiate analgesic; Z79.899 Other long term (current) drug therapy; Z72.0 Tobacco use
CPT/HCPCS: 0241U; 36415; 71045; 80048; 84484; 85025; 86308; 87651; 96372; 99283; J2930; A9270-GY

== ENCOUNTER 2023-06-01 16:47 | Emergency (ER) | payer BC, MEDICAID ==
--- NOTE | 2023-06-01 17:09 | ERPHSYRPT ---
- History of Present Illness Time Seen by Provider: 06/01/23 17:09 Source: patient Exam Limitations: no limitations Physician History: This is a 27-year-old white female patient who presents with left lower incisor tooth ache and dental fracture with localized facial swelling present. Patient states that the symptoms worsened over the last 1 to 2 days prior to arrival. She did purchase acetaminophen and ibuprofen combination tablet which she started today. Patient states that she cannot use penicillin but has had Keflex in the past without any issues. She has not seen a dentist for this issue. Timing/Duration: abrupt onset Severity: mild Prearrival Treatment: over the counter meds Modifying Factors: Improves With: other (chewing) Associated Symptoms: facial pain/swelling (left lower), jaw pain, tooth pain (left lower incisors) Allergies/Adverse Reactions: orange Allergy (Verified 06/01/23 16:59) Rash Penicillins Adverse Reaction (Severe, Verified 06/01/23 16:59) tachycardia escitalopram [From Lexapro] Adverse Reaction (Verified 06/01/23 16:59) does not remember had a rx as a child nifedipine Adverse Reaction (Verified 06/01/23 16:59) Rapid Heart Beat sertraline [From Zoloft] Adverse Reaction (Verified 06/01/23 16:59) Nausea and Vomiting Home Medications: Aspirin EC 81 mg [Ecotrin 81 mg] 81 mg PO DAILY 03/13/22 [History] ARIPiprazole [Aripiprazole] 2 tab PO DAILY 04/02/23 [History] clonazePAM [Clonazepam] 1 mg BID 06/01/23 [History] Hx Tetanus, Diphtheria Vaccination/Date Given: Yes Hx Influenza Vaccination/Date Given: No Hx Pneumococcal Vaccination/Date Given: No Travel Risk - International Travel Have you traveled outside of the country in past 3 weeks: No - Emerging Infectious Disease Are you exhibiting symptoms associated with any current EIDs: No - Review of Systems Constitutional: No Symptoms Eyes: No Symptoms Ears, Nose, & Throat: Other Respiratory: No Symptoms Cardiac: No Symptoms Abdominal/Gastrointestinal: No Symptoms Genitourinary Symptoms: No Symptoms Musculoskeletal: No Symptoms Skin: No Symptoms Neurological: No Symptoms Psychological: No Symptoms Endocrine: No Symptoms Hematologic/Lymphatic: No Symptoms Immunological/Allergic: No Symptoms All Other Systems: Reviewed and Negative - Past Medical History Pertinent Past Medical History: Yes Neurological History: No Pertinent History ENT History: No Pertinent History Cardiac History: Hypertension Respiratory History: No Pertinent History Endocrine Medical History: No Pertinent History Musculoskeletal History: No Pertinent History GI Medical History: No Pertinent History History: No Pertinent History Psycho-Social History: Anxiety, Depression, Other Female Reproductive Disorders: No Pertinent History Other Medical History: pre-eclampsia. HTN, PTSD - Past Surgical History Past Surgical History: Yes Neuro Surgical History: No Pertinent History Cardiac: No Pertinent History Respiratory: No Pertinent History Gastrointestinal: No Pertinent History Genitourinary: No Pertinent History Musculoskeletal: No Pertinent History Female Surgical History: No Pertinent History Other Surgical History: abscess to right breast Significant Family History: no pertinent family hx - Social History Smoking Status: Former smoker How long have you smoked: 7 Exposure to second hand smoke: Yes Drug Use: none Patient Lives Alone: No - Nursing Vital Signs Nursing Vital Signs: Initial Vital Signs Temperature 97.8 F 06/01/23 17:12 Pulse Rate 77 06/01/23 17:12 Respiratory Rate 18 06/01/23 17:12 Blood Pressure 146/95 06/01/23 17:12 O2 Sat by Pulse Oximetry 98 06/01/23 17:12 Pain Scale Pain Intensity 6 - Physical Exam General Appearance: no apparent distress, alert, anxiety Eye Exam: bilateral eye: normal inspection, PERRL, EOMI Ear Exam: bilateral ear: auricle normal Nasal Exam: normal inspection Throat Exam: dental tenderness (Acute to the left lower incisor with localized gingivitis. Left localized mandibular swelling. No abscess), moist mucus membranes Neck Exam: normal inspection, non-tender, supple, full range of motion, trachea midline Cardiovascular/Respiratory Exam: chest non-tender, no respiratory distress Abdominal Exam: non-tender Neurologic Exam: alert, oriented x 3, cooperative, tiltrotor crew chief II-XII nml as tested, nml cerebellar function, nml station & gait, sensation nml Skin Exam: normal color, warm, dry SpO2 Interpretation: normal O2 Delivery: Room Air Ordered Tests: Medication Summary Generic Name Dose Route Start Last Admin Trade Name Freq PRN Reason Stop Dose Admin Cephalexin HCl 500 mg 06/01/23 17:25 Cephalexin 500 Mg Capsule PO 06/01/23 17:26 STAT ONE - Progress Progress: unchanged Progress Note: 06/01/23 17:42 My medical decision making and assignment of low complexity to this patient's medical issue today is based on review of the patient's past medical history, review of the patient's medication list, review of patient drug allergy list, history of present illness and physical findings on examination. No laboratory radiographic studies are necessary in this patient. Differential diagnosis includes dental fracture, dental abscess, gingivitis, left submandibular adenopathy Counseled pt/family regarding: diagnosis, need for follow-up Medical Desision Making - Diagnostic Testing Diagnostic test were ordered, analyzed, and reviewed by me: No - Risk of complications The pt has a mod risk of morbidity or mortality based on: Need for prescription drug management - Departure Departure Disposition: Home Clinical Impression: Dental infection, Fractured tooth Condition: Stable Critical Care Time: No Additional Instructions: Drink plenty of clear liquids. Take your antibiotics as prescribed. Use Tylenol and ibuprofen as discussed. May purchase [id number] topical local anesthesia agents. Make an appointment with a dentist for further evaluation management. Prescriptions: Cephalexin Mh 500 mg [Keflex 500 mg] 500 mg PO TID #21 cap
[2023-06-01 17:13] VITALS: RESP 18; TEMP 97.8; O2SAT 98
[2023-06-01] MEDS ORDERED: KEFLEX 500 MG ONE (17:35)
[2023-06-01] MEDS: KEFLEX 500 MG PO ONE (17:37)
[2023-06-01 18:05] VITALS: BP 140/80; PULSE 68
== END 2023-06-01 18:05 | disposition home or self-care (01) ==
LOC: ED 16:47
DX: K04.7 Periapical abscess without sinus (principal); K08.89 Other specified disorders of teeth and supporting structures
CPT/HCPCS: 99281; A9270-GY

== ENCOUNTER 2023-06-25 01:59 | Emergency (ER) | payer OTHER, MEDICAID ==
--- NOTE | 2023-06-25 03:07 | ERPHSYRPT ---
- History of Present Illness Time Seen by Provider: 06/25/23 02:53 Source: patient Exam Limitations: no limitations Physician History: Pt states she has been out of her clonazepam for the past 3 days and cannot get to sleep tonight; also has had diarrhea without blood for the past 3 days; denies chest pain, shortness of air, abdominal pain, vomiting, headache. Allergies/Adverse Reactions: orange Allergy (Verified 06/01/23 16:59) Rash Penicillins Adverse Reaction (Severe, Verified 06/01/23 16:59) tachycardia escitalopram [From Lexapro] Adverse Reaction (Verified 06/01/23 16:59) does not remember had a rx as a child nifedipine Adverse Reaction (Verified 06/01/23 16:59) Rapid Heart Beat sertraline [From Zoloft] Adverse Reaction (Verified 06/01/23 16:59) Nausea and Vomiting Home Medications: Aspirin EC 81 mg [Ecotrin 81 mg] 81 mg PO DAILY 03/13/22 [History] ARIPiprazole [Aripiprazole] 2 tab PO HS 04/02/23 [History] clonazePAM [Clonazepam] 1 mg PO BID 06/01/23 [History] Hx Tetanus, Diphtheria Vaccination/Date Given: Yes Hx Influenza Vaccination/Date Given: No Hx Pneumococcal Vaccination/Date Given: No Travel Risk - Emerging Infectious Disease Are you exhibiting symptoms associated with any current EIDs: No - Review of Systems Constitutional: No Fever Respiratory: No Dyspnea Cardiac: No Chest Pain Abdominal/Gastrointestinal: Diarrhea, No Abdominal Pain, No Nausea, No Vomiting Neurological: No Focal Weakness, No Headache, No Sensory Changes - Past Medical History Pertinent Past Medical History: Yes Neurological History: No Pertinent History ENT History: No Pertinent History Cardiac History: Hypertension Respiratory History: No Pertinent History Endocrine Medical History: No Pertinent History Musculoskeletal History: No Pertinent History GI Medical History: No Pertinent History History: No Pertinent History Psycho-Social History: Anxiety, Depression, Other Female Reproductive Disorders: No Pertinent History Other Medical History: pre-eclampsia. HTN, PTSD - Past Surgical History Past Surgical History: Yes Neuro Surgical History: No Pertinent History Cardiac: No Pertinent History Respiratory: No Pertinent History Gastrointestinal: No Pertinent History Genitourinary: No Pertinent History Musculoskeletal: No Pertinent History Female Surgical History: No Pertinent History Other Surgical History: abscess to right breast Significant Family History: no pertinent family hx - Social History Smoking Status: Former smoker How long have you smoked: 7 Exposure to second hand smoke: Yes Drug Use: none Patient Lives Alone: No - Physical Exam General Appearance: alert Eye Exam: PERRL/EOMI Ears, Nose, Throat Exam: TMs normal, pharynx normal Neck Exam: normal inspection Respiratory Exam: lungs clear, airway intact Cardiovascular Exam: normal heart sounds Gastrointestinal/Abdomen Exam: normal bowel sounds Extremity Exam: No pedal edema Neurologic Exam: alert, cooperative Skin Exam: warm, dry - Progress Progress: unchanged Counseled pt/family regarding: diagnosis, need for follow-up - Departure Departure Disposition: Home Clinical Impression: Insomnia Condition: Stable Critical Care Time: No Referrals: CHARI HERRMANN DIRECTOR OF [employer]AND AC[employer]ISITION [Primary Care Provider] - Follow up/PCP as directed Instructions: Insomnia (DC) Additional Instructions: Follow up with private doctor today. Get prescription for clonazepam filled.
[2023-06-25 03:08] VITALS: TEMP 97.4
[2023-06-25 03:09] VITALS: RESP 18
[2023-06-25] MEDS ORDERED: Ativan 1 MG ONE (03:10)
[2023-06-25] MEDS: Ativan 1 MG PO ONE (03:12)
[2023-06-25 03:53] VITALS: BP 125/86; PULSE 82; O2SAT 97
== END 2023-06-25 03:47 | disposition home or self-care (01) ==
LOC: ED 01:59
DX: G47.00 Insomnia, unspecified (principal); R19.7 Diarrhea, unspecified; I10 Essential (primary) hypertension; Z79.899 Other long term (current) drug therapy
CPT/HCPCS: 99282; A9270-GY

== ENCOUNTER 2023-09-01 01:47 | Emergency (ER) | payer MEDICAID, OTHER ==
[2023-09-01 02:05] VITALS: TEMP 97.2; O2SAT 99
--- NOTE | 2023-09-01 02:44 | ERPHSYRPT ---
- History of Present Illness Time Seen by Provider: 09/01/23 02:05 Historian: patient Exam Limitations: no limitations Patient Subjective Stated Complaint: pt states she began having chest at approx midnight Triage Nursing Assessment: pt alert and oriented, answers questions approp. pt ambulates into room with steady gait noted. respirations nonlabored with lungs cta, skin warm and dry. heart rate 64 on monitor, sinus rhythm Physician History: This is a female patient to was having trouble sleeping and just after midnight patient states that she was having brief episodes of chest pain that was substernal and central location with radiation around to her back and into the left upper extremity. Patient has no documented history of coronary artery disease. Patient is a daily smoker of tobacco cigarettes. She smokes approximately 1/2 pack of cigarettes a day. Patient has history of anxiety, depression, hypertension and PTSD. She denies cough. She denies shortness of breath. She denies fevers. She has no bleeding or clotting disorders. Timing/Duration: today Quality: sharpness, stabbing Location: substernal, central Chest Pain Radiation: arm, back Severity of Pain-Max: mild Severity of Pain-Current: mild Modifying Factors: Improves With: nothing Associated Symptoms: denies symptoms Prior Chest Pain/Cardiac Workup: no prior chest pain Nitro Today/Relief: no nitro taken today Aspirin Treatment Today: 81 mg x 4, provided by ED Allergies/Adverse Reactions: orange Allergy (Verified 09/01/23 01:53) Rash Penicillins Adverse Reaction (Severe, Verified 09/01/23 01:53) tachycardia escitalopram [From Lexapro] Adverse Reaction (Verified 09/01/23 01:53) does not remember had a rx as a child nifedipine Adverse Reaction (Verified 09/01/23 01:53) Rapid Heart Beat sertraline [From Zoloft] Adverse Reaction (Verified 09/01/23 01:53) Nausea and Vomiting Home Medications: Aspirin EC 81 mg [Ecotrin 81 mg] 81 mg PO DAILY 03/13/22 [History] ARIPiprazole [Aripiprazole] 2 tab PO HS 04/02/23 [History] clonazePAM [Clonazepam] 1 mg PO BID 06/01/23 [History] Hx Tetanus, Diphtheria Vaccination/Date Given: Yes Hx Influenza Vaccination/Date Given: Yes Hx Pneumococcal Vaccination/Date Given: No Travel Risk - International Travel Have you traveled outside of the country in past 3 weeks: No If Yes, where;: N - Emerging Infectious Disease Are you exhibiting symptoms associated with any current EIDs: No - Review of Systems Constitutional: No Symptoms Eyes: No Symptoms Ears, Nose, & Throat: No Symptoms Respiratory: No Symptoms Cardiac: Chest Pain Abdominal/Gastrointestinal: No Symptoms Genitourinary Symptoms: No Symptoms Musculoskeletal: No Symptoms Skin: No Symptoms Neurological: No Symptoms Psychological: Anxiety, Depression Endocrine: No Symptoms Hematologic/Lymphatic: No Symptoms Immunological/Allergic: No Symptoms All Other Systems: Reviewed and Negative - Past Medical History Pertinent Past Medical History: Yes Neurological History: No Pertinent History ENT History: No Pertinent History Cardiac History: Hypertension Respiratory History: No Pertinent History Endocrine Medical History: No Pertinent History Musculoskeletal History: No Pertinent History GI Medical History: No Pertinent History History: No Pertinent History Psycho-Social History: Anxiety, Depression, Other Female Reproductive Disorders: No Pertinent History Other Medical History: pre-eclampsia. HTN, PTSD - Past Surgical History Past Surgical History: Yes Neuro Surgical History: No Pertinent History Cardiac: No Pertinent History Respiratory: No Pertinent History Gastrointestinal: No Pertinent History Genitourinary: No Pertinent History Musculoskeletal: No Pertinent History Female Surgical History: No Pertinent History Other Surgical History: abscess to right breast Significant Family History: no pertinent family hx - Female History Hx Last Menstrual Period: 1 week Hx Now: No - Social History Smoking Status: Current every day smoker How long have you smoked: 9 Exposure to second hand smoke: Yes Drug Use: none Patient Lives Alone: No - Social Determinants of Health Will the patient participate in the screening: Declined to provide - Nursing Vital Signs Nursing Vital Signs: Initial Vital Signs Temperature 97.2 F 09/01/23 01:54 Pulse Rate 68 09/01/23 01:54 Respiratory Rate 16 09/01/23 01:54 Blood Pressure 159/92 09/01/23 01:54 O2 Sat by Pulse Oximetry 99 09/01/23 01:54 Pain Scale Pain Intensity 6 - Physical Exam General Appearance: no apparent distress, alert, anxiety Eye Exam: PERRL/EOMI, eyes nml inspection Ears, Nose, Throat Exam: normal ENT inspection, moist mucous membranes Neck Exam: normal inspection, non-tender, supple, full range of motion Respiratory Exam: normal breath sounds, lungs clear, airway intact, No chest tenderness (None now), No respiratory distress Cardiovascular Exam: regular rate/rhythm, normal heart sounds, normal peripheral pulses Gastrointestinal/Abdomen Exam: soft, normal bowel sounds, No tenderness Pelvic Exam: not done Rectal Exam: not done Back Exam: normal inspection, normal range of motion, No CVA tenderness, No vertebral tenderness Extremity Exam: normal inspection, normal range of motion, pelvis stable Neurologic Exam: alert, oriented x 3, cooperative, transportation specialist II-XII nml as tested, nml cerebellar function, sensation nml, disoriented Skin Exam: normal color, warm, dry Lymphatic Exam: No adenopathy SpO2 Interpretation: normal SpO2: 99 O2 Delivery: Room Air - Course Nursing assessment & vital signs reviewed: Yes EKG Interpreted by Me: RATE (66), Sinus Rhythm, NORMAL AXIS, NORMAL INTERVALS, NORMAL QRS, NORMAL ST-T, Other (No acute ischemia on today's twelve-lead EKG.) Ordered Tests: Active Orders 24 hr Category Date Time Status Rod And Tube Straightener STAT Care 09/01/23 02:45 Active EKG-ER Only STAT Care 09/01/23 02:44 Active Pulse Oximetry (ED) STAT Care 09/01/23 02:44 Active CBC W DIFF Stat Lab 09/01/23 02:50 Completed CMP Stat Lab 09/01/23 02:50 Completed D-DIMER QUANTITATIVE Stat Lab 09/01/23 02:50 Completed TROPONIN Q4H Lab 09/01/23 02:50 Received TROPONIN Q4H Lab 09/01/23 06:45 Ordered TROPONIN Q4H Lab 09/01/23 10:45 Ordered Medication Summary Discontinued Medications Generic Name Dose Route Start Last Admin Trade Name Freq PRN Reason Stop Dose Admin Aspirin 324 mg 09/01/23 02:44 Aspirin 81 Mg Tab.Chew PO 09/01/23 02:45 STAT ONE Lab/Rad Data: Laboratory Result Diagrams 09/01/23 02:50 09/01/23 02:50 Laboratory Results 09/01/23 09/01/23 09/01/23 Range/Units 02:50 02:50 02:50 WBC 5.0 (3.98-10.04) x10^3/uL RBC 4.50 (3.93-5.22) x10^6/uL Hgb 14.1 (11.2-15.7) g/dL Hct 41.2 (34.1-44.9) % MCV 91.6 (79.4-94.8) fL MCH 31.3 (25.6-32.2) pg MCHC 34.2 (32.2-35.5) g/dL RDW 11.7 (11.7-14.4) % Plt Count 181 L (182-369) x10^3/uL MPV 11.9 (9.4-12.3) fL Gran % 61.3 (34.0-71.1) % Immature Gran % (Auto) 0.2 (0.001-0.429) % Nucleat RBC Rel Count 0.0 (0.00-0.2) % Eos # (Auto) 0.12 (0.04-0.36) x10^3/uL Immature Gran # (Auto) 0.01 (0.001-0.031) x10^3u/L Absolute Lymphs (auto) 1.30 (1.18-3.74) x10^3/uL Absolute Monos (auto) 0.47 (0.24-0.86) x10^3/uL Absolute Nucleated RBC 0.00 (0.00-0.012) x10^3u/L Lymphocytes % 26.2 (19.3-51.7) % Monocytes % 9.5 (4.7-12.5) % Eosinophils % 2.4 (0.7-5.8) % Basophils % 0.4 (0.1-1.2) % Absolute Granulocytes 3.04 (1.56-6.13) x10^3/uL Basophils # 0.02 (0.01-0.08) x10^3/uL D-Dimer 0.20 (0.0-0.50) mg/L Sodium 140 (135-145) mmol/L Potassium 3.5 (3.5-5.1) mmol/L Chloride 105 (98-107) mmol/L Carbon Dioxide 27 (22-30) mmol/L Anion Gap 11.8 (5-15) MEQ/L BUN 8 (7-17) mg/dL Creatinine 0.81 (0.52-1.04) mg/dL Estimated GFR 102.0 ML/MIN Glucose 103 (74-106) mg/dL Calcium 9.4 (8.4-10.2) mg/dL Total Bilirubin 0.30 (0.2-1.3) mg/dL AST 21 (14-36) U/L ALT 18 (0-35) U/L Alkaline Phosphatase 93 (38-126) U/L Serum Total Protein 7.8 (6.3-8.2) g/dL Albumin 4.7 (3.5-5.0) g/dL - Progress Progress: improved, re-examined Air Movement: good Progress Note: 09/01/23 02:51 My medical decision making in the assignment of moderate complexity to today's medical issues based on review of the patient's past medical history, reviewed the patient's medication list, review of patient drug allergy list, history of present illness and physical findings on examination. The workup in this patient includes twelve-lead EKG, CBC, CMP, D-dimer, troponin level. Differential diagnosis includes but is not limited to anxiety, muscle skeletal p ain, myocardial infarction, pulmonary embolus, electrolyte abnormalities, arrhythmia 09/01/23 03:09 I interpreted the patient's laboratory data results. Based on the laboratory data results, there are no acute or emergent medical issues. Blood Culture(s) Obtained: No Antibiotics given: No Counseled pt/family regarding: lab results, diagnosis, need for follow-up Medical Desision Making - Diagnostic Testing Diagnostic test were ordered, analyzed, and reviewed by me: Yes - Risk of complications Minimal Risk: Minimal risk of morbidity - Departure Departure Disposition: Home Clinical Impression: Nonspecific chest pain, Insomnia, Anxiety about health Condition: Stable Critical Care Time: No Referrals: CHARI HERRMANN COMMERCIAL [employer] TECHNICIAN [Primary Care Provider] - Follow up/PCP as directed Additional Instructions: Take all your medications as prescribed. Call your primary prescribing provider on 09/03/2023 to make arrangements for a follow-up appointment to be seen in the next 5 to 7 days.
[2023-09-01 02:53] LABS: Absolute Neutrophil Ct (ANC) 3.04 x10^3/uL (1.56-6.13); BASOPHIL % 0.4 % (0.1-1.2); Basophil (Absolute #) 0.02 x10^3/uL (0.01-0.08); Eosinophil % 2.4 % (0.7-5.8); Eosinophil (Absolute #) 0.12 x10^3/uL (0.04-0.36); Hematocrit 41.2 % (34.1-44.9); Hemoglobin 14.1 g/dL (11.2-15.7); IMMATURE GRAN # 0.01 x10^3u/L (0.001-0.031); IMMATURE GRAN % 0.2 % (0.001-0.429); Lymphocytes % 26.2 % (19.3-51.7); Mean Cell Volume 91.6 fL (79.4-94.8); Mean Corpuscular Hemoglobin 31.3 pg (25.6-32.2); Mean Corpuscular Hgb Concent. 34.2 g/dL (32.2-35.5); Mean Platelet Volume 11.9 fL (9.4-12.3); Monocyte (Absolute #) 0.47 x10^3/uL (0.24-0.86); Monocytes % 9.5 % (4.7-12.5); Neutrophil % 61.3 % (34.0-71.1); Platelet Count 181 x10^3/uL (182-369); Red Cell Distribution Width 11.7 % (11.7-14.4)
[2023-09-01 02:59] LABS: ALBUMIN 4.7 g/dL (3.5-5.0); ANION GAP 11.8 MEQ/L (5-15); BILIRUBIN,TOTAL 0.3 mg/dL (0.2-1.3); Calcium 9.4 mg/dL (8.4-10.2); Creatinine 1 0.81 mg/dL (0.52-1.04); Potassium 3.5 mmol/L (3.5-5.1); Total Protein 7.8 g/dL (6.3-8.2)
[2023-09-01] MEDS ORDERED: BABY ASPIRIN 81 MG CHEW ONE (03:11)
[2023-09-01] MEDS: BABY ASPIRIN 81 MG CHEW PO ONE (03:12)
[2023-09-01] MEDS ORDERED: Ativan 0.5 MG PO ONE (03:19)
[2023-09-01] MEDS ORDERED: Ativan 1 MG ONE (03:24)
[2023-09-01] MEDS: Ativan 1 MG PO ONE (03:26)
[2023-09-01 03:33] VITALS: BP 131/76; PULSE 69; RESP 13
== END 2023-09-01 03:36 | disposition home or self-care (01) ==
LOC: ED 01:47
DX: R07.9 Chest pain, unspecified (principal); G47.00 Insomnia, unspecified; F45.9 Somatoform disorder, unspecified; I10 Essential (primary) hypertension; Z79.899 Other long term (current) drug therapy; Z72.0 Tobacco use
CPT/HCPCS: 36415; 80053; 84484; 85025; 85379; 93005; 93041; 94760; 99283; A9270-GY

== ENCOUNTER 2024-02-20 20:53 | Emergency (ER) | payer MEDICAID, OTHER ==
--- NOTE | 2024-02-20 20:57 | ERPHSYRPT ---
- History of Present Illness Time Seen by Provider: 02/20/24 20:56 Source: patient, family Exam Limitations: no limitations Physician History: This is a 28-year-old female patient brought into the emergency department by private vehicle. Patient states her boyfriend is in the waiting room and brought her to the facility. For the last 2 days, patient states that she has had complaints of headache, body aches, nausea and vomiting and fever to 102 F. Patient stated that she took 975 mg total of Tylenol 2 hours prior to arrival. She states she also took 600 mg of ibuprofen at 1300 today. Patient is a daily smoker of tobacco cigarettes. She has a history of anxiety, depression and PTSD. Patient states that her son was recently diagnosed with COVID infection. Timing/Duration: day(s) (2), worse Cough Quality/Degree: mild, dry cough Possible Cause: occasional episodes Associated Symptoms: fever, cough, earache, headache, muscle aches, sore throat, No chest pain/soreness Allergies/Adverse Reactions: orange Allergy (Verified 02/20/24 21:21) Rash Penicillins Adverse Reaction (Severe, Verified 02/20/24 21:21) tachycardia escitalopram [From Lexapro] Adverse Reaction (Verified 02/20/24 21:21) does not remember had a rx as a child nifedipine Adverse Reaction (Verified 02/20/24 21:21) Rapid Heart Beat sertraline [From Zoloft] Adverse Reaction (Verified 02/20/24 21:21) Nausea and Vomiting Hx Tetanus, Diphtheria Vaccination/Date Given: Yes Hx Influenza Vaccination/Date Given: Yes Hx Pneumococcal Vaccination/Date Given: No Travel Risk - International Travel Have you traveled outside of the country in past 3 weeks: No - Emerging Infectious Disease Are you exhibiting symptoms associated with any current EIDs: Yes Symptoms: Cough: New Onset, Fever, Headaches/Body Aches/, Vomitting - Review of Systems Constitutional: Fever Eyes: No Symptoms Ears, Nose, & Throat: Ear Pain, Throat Pain Respiratory: Cough Cardiac: No Symptoms Abdominal/Gastrointestinal: Nausea, Vomiting, Appetite Changes Genitourinary Symptoms: No Symptoms Musculoskeletal: Arthralgias, Myalgias Skin: No Symptoms Neurological: No Symptoms Psychological: No Symptoms Endocrine: No Symptoms Hematologic/Lymphatic: No Symptoms Immunological/Allergic: No Symptoms All Other Systems: Reviewed and Negative - Past Medical History Pertinent Past Medical History: Yes Neurological History: No Pertinent History ENT History: No Pertinent History Cardiac History: Hypertension Respiratory History: No Pertinent History Endocrine Medical History: No Pertinent History Musculoskeletal History: No Pertinent History GI Medical History: No Pertinent History History: No Pertinent History Psycho-Social History: Anxiety, Depression, Other Female Reproductive Disorders: No Pertinent History Other Medical History: pre-eclampsia. HTN, PTSD - Past Surgical History Past Surgical History: Yes Neuro Surgical History: No Pertinent History Cardiac: No Pertinent History Respiratory: No Pertinent History Gastrointestinal: No Pertinent History Genitourinary: No Pertinent History Musculoskeletal: No Pertinent History Female Surgical History: No Pertinent History Other Surgical History: abscess to right breast Significant Family History: no pertinent family hx - Female History Hx Last Menstrual Period: 1 week - Social History Smoking Status: Current every day smoker How long have you smoked: 9 Exposure to second hand smoke: Yes Drug Use: none Patient Lives Alone: No - Social Determinants of Health Will the patient participate in the screening: Declined to provide - Nursing Vital Signs Nursing Vital Signs: Initial Vital Signs Temperature 98.9 F 02/20/24 20:59 Pulse Rate 112 H 02/20/24 20:59 Respiratory Rate 18 02/20/24 20:59 Blood Pressure 136/94 02/20/24 20:59 O2 Sat by Pulse Oximetry 100 02/20/24 20:59 Pain Scale Pain Intensity 2 - Physical Exam General Appearance: no apparent distress, alert, anxiety Eye Exam: PERRL/EOMI, eyes nml inspection Ears, Nose, Throat Exam: normal ENT inspection, TMs normal, moist mucous membranes Neck Exam: normal inspection, non-tender, supple, full range of motion Respiratory Exam: normal breath sounds, lungs clear, airway intact, No chest tenderness, No respiratory distress Cardiovascular Exam: normal peripheral pulses, tachycardia Gastrointestinal/Abdomen Exam: soft, normal bowel sounds, No tenderness Pelvic Exam: not done Rectal Exam: not done Back Exam: normal inspection, normal range of motion, No CVA tenderness, No vertebral tenderness Extremity Exam: normal inspection, normal range of motion, pelvis stable Neurologic Exam: alert, oriented x 3, cooperative, rock duster II-XII nml as tested, nml cerebellar function, nml station & gait, sensation nml Skin Exam: normal color, warm, dry Lymphatic Exam: No adenopathy SpO2 Interpretation: normal O2 Delivery: Room Air - Course Nursing assessment & vital signs reviewed: Yes Ordered Tests: Active Orders 24 hr Category Date Time Status IV Insertion STAT Care 02/20/24 21:12 Active Pulse Oximetry (ED) STAT Care 02/20/24 21:12 Active ACO SDOH Referral ONCE Cons 02/20/24 21:21 Active CHEST 1 VIEW (PORTABLE) Stat Exams 02/20/24 21:40 Taken CBC W DIFF Stat Lab 02/20/24 21:20 Completed CMP Stat Lab 02/20/24 21:20 Completed HCG QUALITATIVE, SERUM Stat Lab 02/20/24 21:20 Completed MONO SCREEN Stat Lab 02/20/24 21:20 Completed UA W/RFX UR CULTURE Stat Lab 02/20/24 21:12 Ordered Medication Summary Discontinued Medications Generic Name Dose Route Start Last Admin Trade Name Julio PRN Reason Stop Dose Admin Hydrocodone Bitart/Acetaminophen 10 ml 02/20/24 21:13 02/20/24 21:31 Hydrocodone/Acetaminophen 5 Ml Udcup PO 02/20/24 21:14 10 ml STAT STA Administration Hydrocodone Bitart/Acetaminophen Confirm 02/20/24 21:28 Hydrocodone/Acetaminophen 5 Ml Udcup Administered 02/20/24 21:29 Dose 10 ml .ROUTE .STK-MED ONE Sodium Chloride 1,000 mls @ 999 mls/hr 02/20/24 21:12 02/20/24 21:30 Sodium Chloride 0.9% 1000 Ml IV 02/20/24 22:12 999 mls/hr .Q1H1M STA Administration Sodium Chloride Confirm 02/20/24 21:28 Sodium Chloride 0.9% 1000 Ml Administered 02/20/24 21:29 Dose 1,000 mls @ ud .ROUTE .STK-MED ONE Ceftriaxone Sodium 1 gm in 100 mls @ 200 mls/hr 02/20/24 22:14 02/20/24 22:22 Rocephin 1 Gm / 100 Ml Nacl IV 02/20/24 22:43 200 mls/hr STAT ONE 200 mls/hr Administration Ceftriaxone Sodium Confirm 02/20/24 22:20 Rocephin 1 Gm / 100 Ml Nacl Administered 02/20/24 22:21 Dose 1 gm in 100 mls @ ud IV .STK-MED ONE Ondansetron HCl 4 mg 02/20/24 21:12 02/20/24 21:32 Ondansetron Hcl 4 Mg/2 Ml Vial IV 02/20/24 21:13 4 mg STAT STA Administration Ondansetron HCl Confirm 02/20/24 21:27 Ondansetron Hcl 4 Mg/2 Ml Vial Administered 02/20/24 21:28 Dose 4 mg .ROUTE .K-MED ONE Lab/Rad Data: Laboratory Result Diagrams 02/20/24 21:20 02/20/24 21:20 Laboratory Results 02/20/24 02/20/24 02/20/24 Range/Units 21:25 21:25 21:20 WBC (3.98-10.04) x10^3/uL RBC (3.93-5.22) x10^6/uL Hgb (11.2-15.7) g/dL Hct (34.1-44.9) % MCV (79.4-94.8) fL MCH (25.6-32.2) pg MCHC (32.2-35.5) g/dL RDW (11.7-14.4) % Plt Count (182-369) x10^3/uL MPV (9.4-12.3) fL Gran % (34.0-71.1) % Immature Gran % (Auto) (0.001-0.429) % Nucleat RBC Rel Count (0.00-0.2) % Eos # (Auto) (0.04-0.36) x10^3/uL Immature Gran # (Auto) (0.001-0.031) x10^3u/L Absolute Lymphs (auto) (1.18-3.74) x10^3/uL Absolute Monos (auto) (0.24-0.86) x10^3/uL Absolute Nucleated RBC (0.00-0.012) x10^3u/L Lymphocytes % (19.3-51.7) % Monocytes % (4.7-12.5) % Eosinophils % (0.7-5.8) % Basophils % (0.1-1.2) % Absolute Granulocytes (1.56-6.13) x10^3/uL Basophils # (0.01-0.08) x10^3/uL Sodium (135-145) mmol/L Potassium (3.5-5.1) mmol/L Chloride (98-107) mmol/L Carbon Dioxide (22-30) mmol/L Anion Gap (5-15) MEQ/L BUN (7-17) mg/dL Creatinine (0.52-1.04) mg/dL Estimated GFR ML/MIN Glucose (74-106) mg/dL Calcium (8.4-10.2) mg/dL Total Bilirubin (0.2-1.3) mg/dL AST (14-36) U/L ALT (0-35) U/L Alkaline Phosphatase (38-126) U/L Serum Total Protein (6.3-8.2) g/dL Albumin (3.5-5.0) g/dL Serum HCG, Qual NEGATIVE (NEGATIVE) Monoscreen WEAKLY POSITIVE A (NEGATIVE) Influenza Type A Ag NEGATIVE (NEGATIVE) Influenza Type B Ag NEGATIVE (NEGATIVE) RSV (PCR) NEGATIVE (NEGATIVE) SARS-CoV-2 (PCR) NEGATIVE (NEGATIVE) Group A Strep Antibody DETECTED (NEGATIVE) 02/20/24 02/20/24 Range/Units 21:20 21:20 WBC 10.2 H (3.98-10.04) x10^3/uL RBC 4.21 (3.93-5.22) x10^6/uL Hgb 13.6 (11.2-15.7) g/dL Hct 38.5 (34.1-44.9) % MCV 91.4 (79.4-94.8) fL MCH 32.3 H (25.6-32.2) pg MCHC 35.3 (32.2-35.5) g/dL RDW 13.0 (11.7-14.4) % Plt Count 172 L (182-369) x10^3/uL MPV 10.6 (9.4-12.3) fL Gran % 76.9 H (34.0-71.1) % Immature Gran % (Auto) 0.3 (0.001-0.429) % Nucleat RBC Rel Count 0.0 (0.00-0.2) % Eos # (Auto) 0.10 (0.04-0.36) x10^3/uL Immature Gran # (Auto) 0.03 (0.001-0.031) x10^3u/L Absolute Lymphs (auto) 1.41 (1.18-3.74) x10^3/uL Absolute Monos (auto) 0.78 (0.24-0.86) x10^3/uL Absolute Nucleated RBC 0.00 (0.00-0.012) x10^3u/L Lymphocytes % 13.9 L (19.3-51.7) % Monocytes % 7.7 (4.7-12.5) % Eosinophils % 1.0 (0.7-5.8) % Basophils % 0.2 (0.1-1.2) % Absolute Granulocytes 7.81 H (1.56-6.13) x10^3/uL Basophils # 0.02 (0.01-0.08) x10^3/uL Sodium 140 (135-145) mmol/L Potassium 3.4 L (3.5-5.1) mmol/L Chloride 105 (98-107) mmol/L Carbon Dioxide 28 (22-30) mmol/L Anion Gap 9.6 (5-15) MEQ/L BUN 8 (7-17) mg/dL Creatinine 0.84 (0.52-1.04) mg/dL Estimated GFR 97.0 ML/MIN Glucose 117 H (74-106) mg/dL Calcium 9.0 (8.4-10.2) mg/dL Total Bilirubin 0.40 (0.2-1.3) mg/dL AST 26 (14-36) U/L ALT 21 (0-35) U/L Alkaline Phosphatase 69 (38-126) U/L Serum Total Protein 7.8 (6.3-8.2) g/dL Albumin 4.4 (3.5-5.0) g/dL Serum HCG, Qual (NEGATIVE) Monoscreen (NEGATIVE) Influenza Type A Ag (NEGATIVE) Influenza Type B Ag (NEGATIVE) RSV (PCR) (NEGATIVE) SARS-CoV-2 (PCR) (NEGATIVE) Group A Strep Antibody (NEGATIVE) - Progress Progress: improved, re-examined Air Movement: good Progress Note: 02/20/24 21:39 My medical decision making and assignment of moderate complexity to this patient's medical issue today is based on review of the patient's past medical history, review the patient's medication list, reviewed patient drug allergy list, history present illness and physical findings on examination. The workup in this patient includes placement of an intravenous line, infusion of normal saline solution, infusion of Zofran, CBC, CMP, urinalysis, test, viral swabs, group A strep pharyngitis, chest x-ray, monotest. Differential diagnosis includes but is not limited to viral illness, pneumonia, strep pharyngitis, urinary tract infection 02/20/24 23:55 I interpreted the patient's laboratory data results. Based on the laboratory data results patient has mononucleosis and group A strep pharyngitis I interpreted the patient's preliminary chest x-ray report. There are no acute cardiopulmonary processes Patient does not wish to stay to provide us a urine for urinalysis Blood Culture(s) Obtained: Yes Antibiotics given: Yes Counseled pt/family regarding: lab results, diagnosis, need for follow-up, rad results Medical Desision Making - Diagnostic Testing Diagnostic test were ordered, analyzed, and reviewed by me: Yes Radiological Interpretation: Interpreted by me, Teleradiologist Report - Risk of complications The pt has a mod risk of morbidity or mortality based on: Need for prescription drug management - Departure Departure Disposition: Home Clinical Impression: Mononucleosis, Strep pharyngitis Condition: Stable Critical Care Time: No Referrals: CHARI HERRMANN, FIBER ANALYST [Primary Care Provider] - Follow up/PCP as directed Additional Instructions: Drink plenty of clear liquids before advancing your diet. Take your antibiotics as prescribed. Use Tylenol and ibuprofen for headache and fever control Prescriptions: Ondansetron ODT 4 MG [Zofran Odt 4 mg] 4 mg PO Q6H PRN PRN #10 tablet PRN Reason: Vomiting Cephalexin Mh 500 mg [Keflex 500 mg] 500 mg PO TID #21 cap
[2024-02-20 21:21] VITALS: TEMP 98.9
[2024-02-20] MEDS ORDERED: Zofran 4 MG/2 ML VIAL ONE (21:27)
[2024-02-20 21:28] LABS: Absolute Neutrophil Ct (ANC) 7.81 x10^3/uL (1.56-6.13); BASOPHIL % 0.2 % (0.1-1.2); Basophil (Absolute #) 0.02 x10^3/uL (0.01-0.08); Hematocrit 38.5 % (34.1-44.9); Hemoglobin 13.6 g/dL (11.2-15.7); IMMATURE GRAN # 0.03 x10^3u/L (0.001-0.031); IMMATURE GRAN % 0.3 % (0.001-0.429); Lymphocyte (Absolute #) 1.41 x10^3/uL (1.18-3.74); Lymphocytes % 13.9 % (19.3-51.7); Mean Cell Volume 91.4 fL (79.4-94.8); Mean Corpuscular Hemoglobin 32.3 pg (25.6-32.2); Mean Corpuscular Hgb Concent. 35.3 g/dL (32.2-35.5); Mean Platelet Volume 10.6 fL (9.4-12.3); Monocyte (Absolute #) 0.78 x10^3/uL (0.24-0.86); Monocytes % 7.7 % (4.7-12.5); Neutrophil % 76.9 % (34.0-71.1); Platelet Count 172 x10^3/uL (182-369); Red Blood Count 4.21 x10^6/uL (3.93-5.22); White Blood Count 10.2 x10^3/uL (3.98-10.04)
[2024-02-20] MEDS ORDERED: Sodium Chloride 0.9% 1000 ML 1,000 ML ONE (21:28)
[2024-02-20] MEDS ORDERED: HYDROCODONE-ACETAMIN 2.5-108/5 ML SOLUTION ONE (21:28)
[2024-02-20] MEDS: Sodium Chloride 0.9% 1000 ML 1,000 ML IV STA (21:30)
[2024-02-20] MEDS: HYDROCODONE-ACETAMIN 2.5-108/5 ML SOLUTION PO STA (21:31)
[2024-02-20] MEDS: Zofran 4 MG/2 ML VIAL IV STA (21:32)
[2024-02-20 21:44] LABS: ALBUMIN 4.4 g/dL (3.5-5.0); ANION GAP 9.6 MEQ/L (5-15); BILIRUBIN,TOTAL 0.4 mg/dL (0.2-1.3); Creatinine 1 0.84 mg/dL (0.52-1.04); Potassium 3.4 mmol/L (3.5-5.1); Total Protein 7.8 g/dL (6.3-8.2)
[2024-02-20 21:51] VITALS: RESP 16
[2024-02-20 21:51] LABS: HCG SERUM TEST NEGATIVE (NEGATIVE)
[2024-02-20 22:07] LABS: INFLUENZA A NEGATIVE (NEGATIVE); INFLUENZA B NEGATIVE (NEGATIVE); RESPIRATORY SYNCTIAL VIRUS NEGATIVE (NEGATIVE); SARS-CoV-2 Xpert Express NEGATIVE (NEGATIVE)
[2024-02-20] MEDS ORDERED: ROCEPHIN 1 GM / 100 ML NaCl 1 GM/100 ML IVPB IV ONE (22:20)
[2024-02-20] MEDS: ROCEPHIN 1 GM / 100 ML NaCl 1 GM/100 ML IVPB IV ONE (22:22)
[2024-02-21 00:03] VITALS: BP 131/88; PULSE 101; O2SAT 98
--- NOTE | 2024-02-21 08:50 | XRAY ---
Indication: Fever. Comparison: April 02, 2023 Portable apical lordotic chest again demonstrates normal heart and lungs. Bony thorax intact again with mild double curvature scoliosis. No new/acute findings.
== END 2024-02-21 00:09 | disposition home or self-care (01) ==
LOC: ED 20:53
DX: B27.90 Infectious mononucleosis, unspecified without complication (principal); J02.0 Streptococcal pharyngitis; R50.9 Fever, unspecified; R51.9 Headache, unspecified; R11.2 Nausea with vomiting, unspecified; M79.10 Myalgia, unspecified site; I10 Essential (primary) hypertension; Z79.899 Other long term (current) drug therapy; Z72.0 Tobacco use; Z59.811 Housing instability, housed, with risk of homelessness
CPT/HCPCS: 0241U; 36415; 71045; 80053; 84703; 85025; 86308; 87651; 94760; 96374; 96375; 99284; J0696; J2405; A9270-GY

== ENCOUNTER 2024-12-19 13:16 | Emergency (ER) | payer MEDICAID ==
[2024-12-19 14:25] VITALS: TEMP 97; O2SAT 100
--- NOTE | 2024-12-19 14:48 | ERPHSYRPT ---
- History of Present Illness Time Seen by Provider: 12/19/24 14:45 Source: patient Patient Subjective Stated Complaint: bleeding 2 days ago following fall from 10 rungs of stairs , pain in back, abdomen, nausea/vomiting. 16 weeks Triage Nursing Assessment: patient presents to ed via private vehicle, patient able to ambulate into without complication, patient has complaints of lower abdominal pain and lower back pain, patient is currently 16 weeks , able to hear baby's heart beat with doppler, heart beat is around 150s, patient denies sob/chest discomfort, skin pwd, patient states she does have active vaginal bleeding at this time. dr quesada Physician History: CC: She notes that she has had a fall HPI: history from nursing triage notes, patient She describes that she was going down the stairs at her Apt. 2 days ago. She notes that they were somewhat slippery and her right foot slipped out and she fell backwards landing on her lower back/right back and then she slid down the remaining stairs. She believes she was possibly 8-10 stairs up when this occurred. She did not hit her head or neck. She notes that after that episode she had noticed some slight vaginal spotting and then used her menstrual cup/diva cup and had a very small amount in the bottom. Based on her demonstration of the amount that was in the cup approximately 1/2 inch at the bottom of the conical cup I would estimate this to be about 5 mL. She has not had any blood from the vet channel area since then. She notes that she was concerned because she is having pain in her right lower back/lower back area. She has not had any pain from the uterus or any uterine cramping. She has not had any additional bleeding. She was concerned and presented to ER for further evaluation She has not taken any medications for this but she was uncertain what she could take other than Tylenol. She notes she cannot take ibuprofen She did not faint She has not had any bowel or bladder incontinence No personality change _ lives at apartment_ Tobacco exposure Pulseox: 100 % on RA normal Allergies/Adverse Reactions: orange Allergy (Verified 12/19/24 13:57) Rash Penicillins Adverse Reaction (Severe, Verified 12/19/24 13:57) tachycardia escitalopram [From Lexapro] Adverse Reaction (Verified 12/19/24 13:57) does not remember had a rx as a child nifedipine Adverse Reaction (Verified 12/19/24 13:57) Rapid Heart Beat sertraline [From Zoloft] Adverse Reaction (Verified 12/19/24 13:57) Nausea and Vomiting Home Medications: Buprenorphine HCl/Naloxone HCl [Suboxone 2 mg-0.5 mg Sl Film] 1 film PO DAILY 12/19/24 [History] Clonidine HCl 0.1 mg [Clonidine 0.1 mg Tablet] 0.1 mg PO TID 12/19/24 [History] Lisinopril 10 mg [Zestril 10 MG] 10 mg PO DAILY 12/19/24 [History] Hx Tetanus, Diphtheria Vaccination/Date Given: Yes Hx Influenza Vaccination/Date Given: No Hx Pneumococcal Vaccination/Date Given: No Travel Risk - International Travel Have you traveled outside of the country in past 3 weeks: No - Emerging Infectious Disease Are you exhibiting symptoms associated with any current EIDs: No Symptoms: Cough: New Onset, Fever, Headaches/Body Aches/, Vomitting - Past Medical History Pertinent Past Medical History: Yes Neurological History: No Pertinent History ENT History: No Pertinent History Cardiac History: Hypertension Respiratory History: No Pertinent History Endocrine Medical History: No Pertinent History Musculoskeletal History: No Pertinent History GI Medical History: No Pertinent History History: No Pertinent History Psycho-Social History: Anxiety, Depression, Other Female Reproductive Disorders: No Pertinent History Other Medical History: pre-eclampsia. HTN, PTSD, mitral valve prolapse - Past Surgical History Past Surgical History: Yes Neuro Surgical History: No Pertinent History Cardiac: No Pertinent History Respiratory: No Pertinent History Gastrointestinal: No Pertinent History Genitourinary: No Pertinent History Musculoskeletal: No Pertinent History Female Surgical History: No Pertinent History Other Surgical History: abscess to right breast Significant Family History: no pertinent family hx - Female History Hx Last Menstrual Period: 4 days ago Hx Now: Yes Gestational Age: 16 - Social History Smoking Status: Current every day smoker Exposure to second hand smoke: Yes Drug Use: none - Social Determinants of Health Will the patient participate in the screening: Yes Do you worry about a steady place to live?: No Do you have any problems with any of the following?: No known problems In the past 12 months,have you had to go without utilities?: No Transportation Issues: No Has anyone in your support network made you feel unsafe?: No Have you or anyone in your house had to go w/o enough food: No Comment: patient fell down 10 steps, yesterday pain started after the fall - Nursing Vital Signs Nursing Vital Signs: Initial Vital Signs Temperature 97 F 12/19/24 13:17 Pulse Rate 73 12/19/24 13:17 Respiratory Rate 14 12/19/24 13:17 Blood Pressure 111/62 12/19/24 13:17 O2 Sat by Pulse Oximetry 100 12/19/24 13:17 Pain Scale Pain Intensity 9 - Physical Exam SpO2 Interpretation: normal SpO2: 100 O2 Delivery: Room Air Comments: 12/19/24 15:33 NAD, A&O, nontoxic. Pleasant. No pain distress. No physiologic distress. Appears _to be a well adult female in about mid with concern about her symptom_. Eyes: EOMI, nonicteric, conjunctiva clear. Throat: Moist mucous membranes. Neck: supple, spontaneous ROM, nontender. trachea midline. No cervical or supraclavicular lymphadopathy. Thyroid nontender and normal size. Lungs: CTA, nl effort, no rales, crackles, rhonchi, wheezes. Normal resonance on percussion. Cough clear_. Cardiac: RRR S1, S2, without murmur or rub. Posterior tibial, Pedal, radial, femoral pulses 2/4 & no radio-femoral delay -- bilaterally. No ankle or pretibial edema. Back: No pain on percussion, no muscle spasm, and nontender palpation --except at the right lumbar longissimus muscle area where she does have moderate spasm on palpation in this exam reproduces mild pain. She does not have any C/T/L bony spine pain. No kyphosis. Skin: warm, dry, normal turgor. no gross rash. Abdom: Bowel sounds present x 4 Quadrants. Normal tympany to percussion. Soft. Non-distended. Uterus is gravid below the umbilicus and is nontender. Otherwise abdomen is nontender, no masses or organomegaly. No rebound, rigidity, or guarding. No pulsatile masses. Nonsurgical . Abdomen based on this exam Neuro: no facial droop / asymmetry. CN 2-12 grossly intact. Moves all extremities. Normal speech phonation. Neuro: DTR 2/4 upper and lower extremities bilaterally. No ankle clonus. No pronator drift. Good muscle tone and moves all extremities. - Course Nursing assessment & vital signs reviewed: Yes Ordered Tests: OB US, lumbar XRay - Progress Progress Note: 12/19/24 15:37 She has the right lumbar longissimus pain and she does have the fall down the stairs with direct impact onto her low back. She is not having any C/T/L bony spine pain but with her sensation of having the 1 month of intermittent leg numbness I believe it would be reasonable in light of the trauma to complete a 2 view lumbar x-ray. Have discussed with patient the minimal/low risk for radiation to the second trimester at this point I believe this is outweighed by the benefit. I do offer her this as an option she does except this and will complete the x-ray. Additionally because she did have the some very small amount of vaginal bleeding in the diva cup I am going to have her complete a OB ultrasound to evaluate for any retroplacental hemorrhage She has been taking acetaminophen I believe this is reasonable. I will consider cyclobenzaprine 6 tablets for home if she has nonfocal studies. 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 Patient leaving AGAINST MEDICAL ADVICE. She left prior to my ability to speak with her to discuss her risks and the recommendations of the testing again. - Departure Departure Disposition: AMA Clinical Impression: Left against medical advice, Low back pain, Second trimester , Fall down stairs Condition: Stable Critical Care Time: No Referrals: LAMAR SANDOVAL MD [ACTIVE STAFF, FAMILY PRACTICE] - Follow up/PCP as directed
[2024-12-19 15:14] VITALS: BP 92/66; PULSE 65; RESP 17
== END 2024-12-19 15:47 | disposition left against medical advice (07) ==
LOC: ED 13:16
DX: Z04.3 Encounter for examination and observation following other accident (principal); M54.50 Low back pain, unspecified; Z33.1 Pregnant state, incidental; Z79.891 Long term (current) use of opiate analgesic; Z79.899 Other long term (current) drug therapy; Z72.0 Tobacco use